=== PATIENT | female | born 1950 | race Caucasian/White ===

== ENCOUNTER → 2020-10-12 08:59 | Outpatient (BNVA) | payer MEDICARE, MEDICAID, SELFPAY | PROVIDERS: Visit Provider Internal Medicine Cardiovascular Disease | DX: I48.0 Paroxysmal atrial fibrillation (principal); I10 Essential (primary) hypertension; R06.02 Shortness of breath; Z79.01 Long term (current) use of anticoagulants; Z79.899 Other long term (current) drug therapy | CPT/HCPCS: 93005; 99212 ==

== ENCOUNTER 2020-10-27 09:32 | Outpatient (REF) | payer MEDICARE, MEDICAID, SELFPAY ==
[2020-10-27 11:15] LABS: Anion Gap 15 (12-20); Blood Urea Nitrogen 23 mg/dL (9-16); Calcium 9.8 mg/dL (8.4-10.2); Carbon Dioxide 26 mmol/L (22-29); Chloride 101 mmol/L (96-108); Estimated Glomerular Filt Rate 51; Glucose Random 116 mg/dL (60-115); Potassium 3.8 mmol/l (3.3-5.1); Sodium 138 mmol/L (135-145)
== END 2020-10-27 09:33 | disposition home or self-care (01) ==
LOC: HO.LAB 09:32
PROVIDERS: Visit Provider Internal Medicine Cardiovascular Disease
DX: I10 Essential (primary) hypertension (principal)
CPT/HCPCS: 80048; 99211

== ENCOUNTER → 2021-04-05 08:56 | Outpatient (BNVA) | payer MEDICARE, MEDICAID, SELFPAY | PROVIDERS: PCP Internal Medicine; Visit Provider Internal Medicine Cardiovascular Disease | DX: I48.0 Paroxysmal atrial fibrillation (principal); I10 Essential (primary) hypertension | CPT/HCPCS: 93005; 99212 ==

== ENCOUNTER 2021-05-16 08:20 | Outpatient (REF) | payer MEDICARE, MEDICAID, SELFPAY ==
--- NOTE | ~2021-05-16 | XR_ITS ---
EXAMINATION: KNEE X-RAY CLINICAL INFORMATION: Pain COMPARISON: None TECHNIQUE: Standing AP view of both knees and lateral and sunrise view of the left knee FINDINGS: Left: Bone alignment is normal.. No fracture or dislocation is seen. There is arthritis at the femoral tibial and patellofemoral joints with joint space narrowing and osteophyte formation, greatest at the medial femoral tibial joint. There is a moderate joint effusion. Standing AP view of the left knee demonstrates arthritis at the lateral femoral tibial joint. XR/XR knee standing BI IMPRESSION: Left knee: Arthritis and joint effusion.
--- NOTE | ~2021-05-16 | XR_ITS ---
EXAMINATION: KNEE X-RAY CLINICAL INFORMATION: Pain COMPARISON: None TECHNIQUE: Standing AP view of both knees and lateral and sunrise view of the left knee FINDINGS: Left: Bone alignment is normal.. No fracture or dislocation is seen. There is arthritis at the femoral tibial and patellofemoral joints with joint space narrowing and osteophyte formation, greatest at the medial femoral tibial joint. There is a moderate joint effusion. Standing AP view of the left knee demonstrates arthritis at the lateral femoral tibial joint. XR/XR knee LT 2V IMPRESSION: Left knee: Arthritis and joint effusion.
== END 2021-05-16 08:21 | disposition home or self-care (01) ==
LOC: HO.HOSX 08:20
PROVIDERS: Visit Provider Orthopaedic Surgery
DX: M17.12 Unilateral primary osteoarthritis, left knee (principal)
CPT/HCPCS: 73560; 73565; 99202

== ENCOUNTER 2021-06-21 16:42 | Inpatient (IN) | payer MEDICARE, MEDICAID, SELFPAY ==
--- NOTE | ~2021-06-21 | US_ITS ---
EXAMINATION: RIGHT LOWER EXTREMITY DEEP VENOUS ULTRASOUND CLINICAL INFORMATION: Increased swelling. History of DVT. COMPARISON: Right lower extremity DVT study June 21, 2021 TECHNIQUE: Duplex Doppler imaging with compression maneuvers were performed of the right lower extremity deep venous system. FINDINGS: The visualized common femoral, femoral and popliteal veins demonstrate normal compressibility and color flow without evidence of venous thrombosis. Visualized portions of the mid and distal posterior tibial vein demonstrate normal color fill-in suggesting patency. The proximal portion of the posterior tibial vein and the entirety of the peroneal vein were not clearly visualized. There is no evidence of a Rajan's cyst. US/US venous duplex LE RT IMPRESSION: No evidence of deep venous thrombosis involving the visualized veins of the right lower extremity.
--- NOTE | ~2021-06-21 | CT_ITS ---
EXAMINATION: CT ABDOMEN AND PELVIS WITHOUT CONTRAST CLINICAL INFORMATION: Breast cancer. Now presents with DVT while on Xarelto. COMPARISON: None TECHNIQUE: Multidetector volumetric imaging was performed from the superior aspect of the liver through the pubic symphysis. Sagittal and coronal reformatted images were obtained on the technologist's workstation. This CT examination was performed using dose optimization techniques as appropriate, variously including the following: *Automated exposure control *Adjustment of mA and/or kV according to patient size (this includes techniques or standardized protocols for targeted exams where dose is matched to indication/reason for exam; i.e. extremities or head) *Use of iterative reconstruction technique DLP: 546.5 mGy-cm FINDINGS: LUNG BASES: Lung bases appear unremarkable. No pleural or pericardial effusion is seen. There is a small amount of pericardial fluid present. LIVER, GALLBLADDER, AND BILIARY TREE: The liver is normal in size, shape, and attenuation. No focal hepatic lesion or biliary ductal dilatation is present. There appears to be either sludge or vicarious excretion of contrast related to recent CT scan. No evidence of acute cholecystitis. PANCREAS: Unremarkable. SPLEEN: Unremarkable. ADRENAL GLANDS: Unremarkable. KIDNEYS AND URETERS: The kidneys are normal in size, shape, and attenuation. No hydronephrosis, hydroureter, or calculi seen. No perinephric stranding. BLADDER: Unremarkable. Some contrast is noted still within the urinary bladder. GASTROINTESTINAL TRACT: No dilated loops of large or small bowel. No free air or free fluid. No evidence of acute diverticulitis, pericolonic inflammatory change, or acute appendicitis. ABDOMINAL WALL: No significant hernia is appreciated. There is some inflammatory streaking in the right inguinal region. LYMPH NODES: No lymphadenopathy appreciated. VASCULAR: No abdominal aortic aneurysm. There is mild calcified aortoiliac plaque present. PELVIC VISCERA: Unremarkable. OSSEOUS STRUCTURES: No suspicious destructive bony lesions identified. There is scoliosis of the lumbar spine convex left. Multilevel degenerative disc disease is present. There is bilateral degenerative change of the hips left greater than right. CT/CT abdomen pelvis wo con IMPRESSION: Inflammatory streaking seen in the right inguinal region. No suspicious lytic or sclerotic lesions within visualized bone. Multilevel degenerative disc disease is seen.
--- NOTE | ~2021-06-21 | US_ITS ---
EXAMINATION: US VENOUS ULTRASOUND WITH DOPPLER LOWER EXTREMITY, RIGHT CLINICAL INFORMATION: Right lower extremity edema swelling and pain COMPARISON: None TECHNIQUE: Ultrasound of the deep veins is performed from the hip to the calf with compression sonography and color and pulse Doppler assessment. Spectral analysis with color-flow imaging is performed. FINDINGS: Noncompressible thrombus is seen in the posterior tibial vein. The remainder of the leg demonstrates normal venous compression and respiratory variation and augmented flow. The visualized common femoral vein, superficial femoral vein, profunda femoral vein, popliteal vein, and peroneal veins shows no evidence of deep venous thrombosis. There is no significant popliteal fossa cyst. US/US venous duplex LE RT IMPRESSION: DVT involving posterior tibial vein. No evidence of DVT from the knee upwards. .
--- NOTE | ~2021-06-21 | CT_ITS ---
EXAMINATION: CT ANGIOGRAM OF THE CHEST WITH AND WITHOUT CONTRAST (CT PULMONARY ANGIOGRAM FOR PE) CLINICAL INFORMATION: Reason for Exam Tachycardia, that breath, positive DVT COMPARISON: None TECHNIQUE: Prior to contrast administration, noncontrast localization images were obtained. Subsequently, multidetector volumetric imaging was performed from the thoracic inlet to below the diaphragms following the administration of 35c mL Omnipaque 350 intravenous contrast. No contrast reaction reported Sagittal, coronal, and MIP oblique sagittal reformatted images were obtained on the CT workstation, uploaded to PACS, and reviewed. This CT examination was performed using dose optimization techniques as appropriate, variously including the following: *Automated exposure control *Adjustment of mA and/or kV according to patient size (this includes techniques or standardized protocols for targeted exams where dose is matched to indication/reason for exam; i.e. extremities or head) *Use of iterative reconstruction technique Total exam dose-length product 336 mGy-cm FINDINGS: QUALITY OF STUDY/CONTRAST BOLUS: Satisfactory. PULMONARY ARTERIES: No central or segmental pulmonary emboli. THORACIC AORTA: No aneurysm or dissection. Aorta is atherosclerotic. LUNG: No focal consolidation, nodules or masses. PLEURA: No pleural effusion or pneumothorax. MEDIASTINUM: Normal heart size. No pericardial effusion. No hilar or mediastinal lymphadenopathy. No evidence of septal bowing or right heart strain. No reflux of contrast into the hepatic veins to suggest elevated right heart pressures. CHEST WALL/AXILLA: No axillary or internal mammary lymphadenopathy.c postsurgical changes, left breast. OSSEOUS STRUCTURES: No acute or suspicious osseous abnormality. UPPER ABDOMEN: Small sliding-type hiatal hernia. CT/CT angio chest PE protocol IMPRESSION: * No pulmonary embolism. * No aortic aneurysm or dissection. * No pneumonitis, parenchymal consolidation or pneumothorax. VTE: negative
[2021-06-21 17:55] VITALS: BP 147/66; PULSE 122; RESP 18; TEMP 37.7; O2SAT 99; BMI 33.1
--- NOTE | 2021-06-21 21:09 | ED.EXTPRO ---
HPI - Extremity Problem General Chief complaint: Extremity Problem Stated complaint: LEG SWOLLEN Time Seen by Provider: 06/21/21 18:36 Source: patient and family (Daughter) Mode of arrival: ambulatory History of Present Illness HPI Narrative: 70-year-old female with history of atrial fibrillation currently on Xarelto presents with right lower extremity calf swelling and redness that is been progressively worsening since 2 weeks, 2 days ago daughter states that the patient was febrile to 39? C and has had worsening shortness of breath without GI symptoms or symptoms. Patient currently denies any chest pain or palpitations. Related Data Home Medications Medication Instructions Recorded Confirmed celecoxib 200 mg capsule 200 mg PO DAILY 10/12/20 04/05/21 cholecalciferol (vitamin D3) 50 50 mcg PO DAILY 10/12/20 04/05/21 mcg (2,000 unit) tablet glucosamine sulfate 500 mg tablet 500 mg PO DAILY 10/12/20 04/05/21 omega-3 fatty acids 1,000 mg 1,000 mg PO DAILY 10/12/20 04/05/21 capsule potassium chloride 20 mEq 20 meq PO tab 04/05/21 04/05/21 tablet,extended release(part/cryst) risperidone 0.5 mg tablet 0.5 mg PO BEDTIME tab 04/05/21 04/05/21 Previous Rx's Medication Instructions Recorded amlodipine 5 mg tablet 5 mg PO DAILY #30 tab 01/11/21 spironolactone 50 mg tablet 50 mg PO DAILY #90 tab 01/11/21 chlorthalidone 50 mg tablet 50 mg PO QAM #90 tab 03/25/21 amiodarone 100 mg tablet 100 mg PO DAILY #90 tab 04/14/21 rivaroxaban 20 mg tablet 20 mg PO BEDTIME #90 tab 06/16/21 Allergies Allergy/AdvReac Type Severity Reaction Status Date / Time No Known Allergies Allergy Verified 06/21/21 17:55 [No Known Allergies*] Review of Systems Review of Systems: Stated in HPI 10 point review of systems is otherwise negative. [facility] Past Medical History Source: nursing notes reviewed Medical History HTN (hypertension) Paroxysmal atrial fibrillation Varicose veins of bilateral lower extremities with other complications Surgical History Hx of breast biopsy Family History Family History Father No problems noted. Mother CVD (cardiovascular disease) HTN (hypertension) Social History Social History Patient Tobacco Use Status: Never used Tobacco Use of substances other than those prescribed or required for medical reasons: No Advance Directives: No Advance Directives Information Provided: Yes Physical Exam Vital Signs: Vital Signs: Last Vital Signs Temp 99.9 F 06/21/21 17:55 Pulse 122 H 06/21/21 17:55 Resp 18 06/21/21 17:55 BP 147/66 H 06/21/21 17:55 Pulse Ox 99 06/21/21 17:55 Body Mass Index 33.1 VITAL SIGNS: Reviewed. GENERAL: Well developed, well nourished, in no acute distress. HEAD: Normocephalic/atraumatic, EYES: PERRLA, EOMI EARS: Ext canals without abnormality OROPHARYNX: no oral lesions noted, posterior pharynx clear LUNGS: Normal breath sounds. No adventitious sounds or accessory muscle use. SpO2<99> CARDIOVASCULAR: Regular rate and rhythm without noted murmurs, no JVD but right lower edema as described below. ABDOMEN: Obese, Soft, non-tender, non-distended with bowel sounds. RIGHT LOWER EXTREMITY: Significant erythema, swelling, with blistering noted to the anterior aspect of the lower leg but palpable pulses, tactile warmth and good capillary refill SKIN: Inspection of the skin reveals no rashes, but see above description for right lower extremity NEUROLOGIC: Alert and oriented x 4. Strength and sensation to light touch were grossly intact x 4. Course Course Course Narrative: 2128: 70-year-old female with history and clinical presentation consistent with DVT in suspected PE while on Xarelto. 2253: Review of initial lab work showing leukocytosis and patient will be empirically treated with a dose of antibiotics as although there is high suspicion for PE in addition to DVT the right lower extremity does look consistent with a cellulitis. There was significant delays due to challenging venous access. Review of entire course of investigations consistent with DVT as well as significant right lower extremity cellulitis. Patient otherwise does not meet criteria for sepsis fluids and discussion of the case with the inpatient hospitalist team for admission. Patient was started on heparin drip given the fact that she had developed the DVT while on Xarelto. MDM - Extremity (Nontraumatic) Lab Data Result diagrams: 06/21/21 22:54 06/21/21 22:54 Labs: Lab Results 06/21/21 06/21/21 06/21/21 Range/Units 22:54 22:54 22:54 WBC 17.0 H (4.8-10.8) X10*3/uL RBC 4.29 (4.20-5.50) X10*6/uL Hgb 13.4 (12.0-16.0) g/dl Hct 39.3 (37-47) % MCV 91.6 (80-98) fL MCH 31.2 (27.0-33.0) pg MCHC 34.1 (31.0-35.0) g/dl RDW 14.0 (11.0-16.0) % Plt Count 229 (160-400) X10*3/uL MPV 12.0 (9.4-12.3) fL Immature Gran % (Auto) 0.6 H (0.0-0.4) % Neut % (Auto) 85.2 H (45-73) % Lymph % (Auto) 9.0 L (20-40) % [place] % (Auto) 5.0 (2-11) % Eos % (Auto) 0.0 (0-4) % Baso % (Auto) 0.2 (0-2) % Lymph # (Auto) 1.5 (1.2-4.9) X10*3/uL [place] # (Auto) 0.9 (0.1-1.2) X10*3/uL Eos # (Auto) 0.0 (0.0-0.4) X10*3/uL Baso # (Auto) 0.0 (0.0-0.2) X10*3/uL Abs Immat Gran (auto) 0.10 H (0.00-0.03) X10*3/uL Absolute Neuts (auto) 14.5 H (2.0-8.3) X10*3/uL Absolute Nucleated RBC 0.000 (0.0-0.012) X10*3/uL Nucleated RBC % (auto) 0.0 (0.0-0.2) /100WBC ESR 38 H (0-20) MM/HR PT (9.9-13.0) SEC INR (0.9-1.1) APTT (24.1-38.0) SEC Sodium 137 (135-145) mmol/L Potassium 3.0 L (3.3-5.1) mmol/L Chloride 97 (96-108) mmol/L Carbon Dioxide 24 (22-29) mmol/L Anion Gap 19 (12-20) BUN 18 H (9-16) mg/dL Creatinine 1.02 (0.5-1.4) mg/dL Estim Creat Clear Calc 51.4 Estimated GFR 53 Random Glucose 138 H (60-115) mg/dL Lactic Acid (0.5-2.0) mmol/L Calcium 9.4 (8.4-10.2) mg/dL Magnesium 1.7 (1.6-2.6) mg/dL Total Bilirubin 0.7 (0.0-1.0) mg/dL Direct Bilirubin 0.4 (0.0-0.5) mg/dL AST 21 (5-31) U/L ALT 23 (0-31) U/L Alkaline Phosphatase 84 (39-117) U/L Total Creatine Kinase 49 (26-140) U/L Troponin I High Sens (<3.5-17.0) ng/L C-Reactive Protein 33.21 H (< or = 0.50) mg/dL B-Natriuretic Peptide (<100) pg/mL Total Protein 6.7 (6.5-8.0) g/dL Albumin 4.0 (3.5-5.0) g/dL COVID-19 ([facility]) (Negative) COVID-19 Clin Com 06/21/21 06/21/21 06/21/21 Range/Units 22:54 22:54 22:54 WBC (4.8-10.8) X10*3/uL RBC (4.20-5.50) X10*6/uL Hgb (12.0-16.0) g/dl Hct (37-47) % MCV (80-98) fL MCH (27.0-33.0) pg MCHC (31.0-35.0) g/dl RDW (11.0-16.0) % Plt Count (160-400) X10*3/uL MPV (9.4-12.3) fL Immature Gran % (Auto) (0.0-0.4) % Neut % (Auto) (45-73) % Lymph % (Auto) (20-40) % [place] % (Auto) (2-11) % Eos % (Auto) (0-4) % Baso % (Auto) (0-2) % Lymph # (Auto) (1.2-4.9) X10*3/uL [place] # (Auto) (0.1-1.2) X10*3/uL Eos # (Auto) (0.0-0.4) X10*3/uL Baso # (Auto) (0.0-0.2) X10*3/uL Abs Immat Gran (auto) (0.00-0.03) X10*3/uL Absolute Neuts (auto) (2.0-8.3) X10*3/uL Absolute Nucleated RBC (0.0-0.012) X10*3/uL Nucleated RBC % (auto) (0.0-0.2) /100WBC ESR (0-20) MM/HR PT 28.0 H (9.9-13.0) SEC INR 2.4 H (0.9-1.1) APTT 35.8 (24.1-38.0) SEC Sodium (135-145) mmol/L Potassium (3.3-5.1) mmol/L Chloride (96-108) mmol/L Carbon Dioxide (22-29) mmol/L Anion Gap (12-20) BUN (9-16) mg/dL Creatinine (0.5-1.4) mg/dL Estim Creat Clear Calc Estimated GFR Random Glucose (60-115) mg/dL Lactic Acid (0.5-2.0) mmol/L Calcium (8.4-10.2) mg/dL Magnesium (1.6-2.6) mg/dL Total Bilirubin (0.0-1.0) mg/dL Direct Bilirubin (0.0-0.5) mg/dL AST (5-31) U/L ALT (0-31) U/L Alkaline Phosphatase (39-117) U/L Total Creatine Kinase (26-140) U/L Troponin I High Sens 8.2 (<3.5-17.0) ng/L C-Reactive Protein (< or = 0.50) mg/dL B-Natriuretic Peptide 181 H (<100) pg/mL Total Protein (6.5-8.0) g/dL Albumin (3.5-5.0) g/dL COVID-19 ([facility]) Negative (Negative) COVID-19 Clin Com See Note 06/21/21 Range/Units 23:09 WBC (4.8-10.8) X10*3/uL RBC (4.20-5.50) X10*6/uL Hgb (12.0-16.0) g/dl Hct (37-47) % MCV (80-98) fL MCH (27.0-33.0) pg MCHC (31.0-35.0) g/dl RDW (11.0-16.0) % Plt Count (160-400) X10*3/uL MPV (9.4-12.3) fL Immature Gran % (Auto) (0.0-0.4) % Neut % (Auto) (45-73) % Lymph % (Auto) (20-40) % [place] % (Auto) (2-11) % Eos % (Auto) (0-4) % Baso % (Auto) (0-2) % Lymph # (Auto) (1.2-4.9) X10*3/uL [place] # (Auto) (0.1-1.2) X10*3/uL Eos # (Auto) (0.0-0.4) X10*3/uL Baso # (Auto) (0.0-0.2) X10*3/uL Abs Immat Gran (auto) (0.00-0.03) X10*3/uL Absolute Neuts (auto) (2.0-8.3) X10*3/uL Absolute Nucleated RBC (0.0-0.012) X10*3/uL Nucleated RBC % (auto) (0.0-0.2) /100WBC ESR (0-20) MM/HR PT (9.9-13.0) SEC INR (0.9-1.1) APTT (24.1-38.0) SEC Sodium (135-145) mmol/L Potassium (3.3-5.1) mmol/L Chloride (96-108) mmol/L Carbon Dioxide (22-29) mmol/L Anion Gap (12-20) BUN (9-16) mg/dL Creatinine (0.5-1.4) mg/dL Estim Creat Clear Calc Estimated GFR Random Glucose (60-115) mg/dL Lactic Acid 1.9 (0.5-2.0) mmol/L Calcium (8.4-10.2) mg/dL Magnesium (1.6-2.6) mg/dL Total Bilirubin (0.0-1.0) mg/dL Direct Bilirubin (0.0-0.5) mg/dL AST (5-31) U/L ALT (0-31) U/L Alkaline Phosphatase (39-117) U/L Total Creatine Kinase (26-140) U/L Troponin I High Sens (<3.5-17.0) ng/L C-Reactive Protein (< or = 0.50) mg/dL B-Natriuretic Peptide (<100) pg/mL Total Protein (6.5-8.0) g/dL Albumin (3.5-5.0) g/dL COVID-19 ([facility]) (Negative) COVID-19 Clin Com ECG Data Attestation EKG: I personally reviewed and interpreted this ECG as follows: Prior ECG tracings: available for review (01/21/2020 sinus bradycardia and now in atrial fibrillation) Interpretation: Atrial fibrillation with RVR, HR-105, no STEMI, QRS within normal limits and noted QT prolongation. Discharge Plan Discharge Clinical Impression: DVT (deep venous thrombosis), Cellulitis, Sepsis Patient Disposition: Admitted As Inpatient
--- NOTE | 2021-06-21 21:33 | ECG_ITS ---
Test Reason : LEG SWELLING Blood Pressure : / mmHG Vent. Rate : 105 BPM Atrial Rate : 117 BPM P-R Int : 000 ms QRS Dur : 088 ms QT Int : 418 ms P-R-T Axes : 000 -25 047 degrees QTc Int : 552 ms Atrial fibrillation with rapid ventricular response Minimal voltage criteria for LVH, may be normal variant Cannot rule out Anterior infarct (cited on or before 21-JAN-2020) Abnormal ECG When compared with ECG of 21-JAN-2020 13:05, Atrial fibrillation has replaced Sinus rhythm Vent. rate has increased BY 58 BPM Referred By: Francoise Moralez Electronically Signed By:ESAU LLOYD
--- NOTE | 2021-06-21 22:40 | PC.NURSE ---
PT REPORTS RLE SWELLING, HEAT, REDNESS AND PAIN BEGINNING YESTERDAY MORNING. PAINFUL UPON MOVEMENT AND AMBULATION. PT A&Ox4, SKIN PWD RESPIRATIONS EVEN UNLABORED. GOOD HISTORIAN. IV ACCESS OBTAINED 20G IN RIGHT AC. AWAITING LAB DRAW AND CTA OF CHEST. DAUGHTER AT BEDSIDE. PT AND DAUGHTER AWARE OF PLAN OF CARE.
[2021-06-21 23:07] LABS: MANUAL DIFF FLAG NO
[2021-06-21 23:10] LABS: Basophils Percent Auto 0.2 % (0-2); Hematocrit 39.3 % (37-47); Hemoglobin 13.4 g/dl (12.0-16.0); Imm Gran Pct Auto 0.6 % (0.0-0.4); Lymphocytes Absolute Auto 1.5 X10*3/uL (1.2-4.9); Mean Corpuscular HGB Conc 34.1 g/dl (31.0-35.0); Mean Corpuscular Hemoglobin 31.2 pg (27.0-33.0); Mean Corpuscular Volume 91.6 fL (80-98); Monocytes Absolute Auto 0.9 X10*3/uL (0.1-1.2); Neutrophils Absolute Auto 14.5 X10*3/uL (2.0-8.3); Neutrophils Percent Auto 85.2 % (45-73); Platelet Count 229 X10*3/uL (160-400); Red Blood Count 4.29 X10*6/uL (4.20-5.50)
[2021-06-21 23:17] LABS: INTERNATIONAL NORM RATIO 2.4 (0.9-1.1)
[2021-06-21 23:20] LABS: Partial Thromboplastin Time 35.8 SEC (24.1-38.0)
[2021-06-21 23:32] LABS: COVID-19 Test Negative (Negative); IDNOW Serial# 08D9AD1C
[2021-06-21 23:34] LABS: Alanine Aminotransferase 23 U/L (0-31); Alkaline Phosphatase 84 U/L (39-117); Anion Gap 19 (12-20); Aspartate Amino Transferase 21 U/L (5-31); Bilirubin Direct 0.4 mg/dL (0.0-0.5); Bilirubin Total 0.7 mg/dL (0.0-1.0); Blood Urea Nitrogen 18 mg/dL (9-16); Calcium 9.4 mg/dL (8.4-10.2); Carbon Dioxide 24 mmol/L (22-29); Chloride 97 mmol/L (96-108); Creatinine Clr Calc Pharmacy 51.4; Estimated Glomerular Filt Rate 53; Glucose Random 138 mg/dL (60-115); Magnesium 1.7 mg/dL (1.6-2.6); Sodium 137 mmol/L (135-145); Total Protein 6.7 g/dL (6.5-8.0)
[2021-06-21 23:37] LABS: Lactic Acid 1.9 mmol/L (0.5-2.0)
[2021-06-21 23:37] LABS: B Type Natriuretic Peptide 181 pg/mL (<100)
[2021-06-21 23:45] LABS: C Reactive Protein 33.21 mg/dL (< or = 0.50)
[2021-06-21 23:56] LABS: Erythrocyte Sedimentation Rate 38 MM/HR (0-20)
[2021-06-22] VITALS (9 sets, daily range): BP systolic 111–142; BP diastolic 57–89; PULSE 97–114; RESP 14–20; TEMP 36.4–37.2; O2SAT 91–99
[2021-06-22] MEDS: iohexoL 350 MG/ML 100 ML INFUS..BTL 65 ML IV (00:13)
[2021-06-22 00:27] LABS: Troponin-I High Sensitivity 8.2 ng/L (<3.5-17.0)
[2021-06-22] MEDS: Piperacillin Sodium/Tazobactam 3.375 GM in 0.9 % Sodium Chloride 50 ML IV (01:04)
[2021-06-22 01:40] LABS: Glucose Urine UA NEG (NEG); Leukocyte Esterase Urine NEG (NEG); Nitrite Urine NEG (NEG); Urine Blood 2+ (NEG); Urine Ketones 40 MG/DL (NEG); Urine Protein TRACE MG/DL (NEG-TRACE)
[2021-06-22 01:41] LABS: Appearance Urine CLEAR; Color Urine YELLOW
[2021-06-22] MEDS: Heparin Sodium,Porcine/1/2NS 25,000 UNIT/250 ML IV.SOLN 15.27 UNIT IVCONT (01:45)
[2021-06-22] MEDS: Potassium Chloride ER 20 MEQ TAB.ER.PRT 60 MEQ PO (01:54)
[2021-06-22 02:01] LABS: Bacteria Urine 1+ /LPF; Mucus Urine 1+ /LPF; Squamous Epithelial Cell Urine 1+ /LPF
--- NOTE | 2021-06-22 02:37 | PC.NURSE ---
PT AMB TO BATHROOM WITH STEADY GAIT AND 1 ASSIST. SKIN PWD RESPIRATIONS EVEN UNLABORED. HEPARIN DRIP INFUSING WITHOUT DIFFICULTY. AWAITING BED ASSIGNMENT FOR ADMISSION. AWARE OF PLAN OF CARE.
[2021-06-22] MEDS: vancomycin HCL 1,250 MG in 0.9 % Sodium Chloride 250 ML 166.67 MG IV ×2 (03:05→15:42)
[2021-06-22 05:52] LABS: PTT Heparin Drip 59.9 SEC (53-77.9)
[2021-06-22 06:14] LABS: INTERNATIONAL NORM RATIO 2.2 (0.9-1.1); Prothrombin Time 25.6 SEC (9.9-13.0)
[2021-06-22 06:18] LABS: Hematocrit 37.8 % (37-47); Mean Corpuscular HGB Conc 34.4 g/dl (31.0-35.0); Mean Corpuscular Hemoglobin 31.4 pg (27.0-33.0); Mean Corpuscular Volume 91.3 fL (80-98); Mean Platelet Volume 11.9 fL (9.4-12.3); Platelet Count 225 X10*3/uL (160-400); Red Blood Count 4.14 X10*6/uL (4.20-5.50); White Blood Count 16.1 X10*3/uL (4.8-10.8)
--- NOTE | 2021-06-22 06:31 | PM.IMHP ---
History of Present Illness Date of Service: 06/22/21 Chief Complaint: Leg swelling 70-year-old female with past medical history of HTN, breast cancer 2 years ago status post radiation according to the daughter, paroxysmal AFib on Xarelto, and varicose veins who presents to the hospital with complaints of right lower extremity swelling, redness, and pain for the past 1 day. Patient speaks [place] and therefore history is obtained with the help of her daughter at bedside According to the daughter is interpreting for the mother the pain is 9/10, burning, localized to the right lower part of the lower extremity, she had a fever at home of 39? C, she took Tylenol with improvement of her temperature, denies any shortness of breath, no chest pain, no cough, no abdominal pain nausea or vomiting, no diarrhea constipation, no urinary symptoms. No numbness tingling or weakness. Review of systems otherwise negative except as mentioned above On arrival to the ED patient hemodynamically stable with vitals significant for temperature of 99.9?, heart rate of 122, respiratory rate of 18, blood pressure of 147/66, satting 99% on room air Labs are significant for WBC count of 17.0, AST of 38, PT of 28, INR of 2.4, C-reactive protein of 33.2, BNP of 181 a urine that is positive for blood but negative for any evidence of infection, COVID-19 negative showed DVT involving the posterior tibial vein, no evidence of DVT from the knee all ports, CT angiogram of the chest negative for PE Patient will be admitted for further management Past medical history as below and confirm with patient and her daughter Review of Systems Review of Systems: Negative except as mentioned above [facility] Medical History HTN (hypertension) Paroxysmal atrial fibrillation Varicose veins of bilateral lower extremities with other complications Family History Father No problems noted. Mother CVD (cardiovascular disease) HTN (hypertension) Surgical History Hx of breast biopsy Social History Patient Tobacco Use Status: Never used Tobacco Use of substances other than those prescribed or required for medical reasons: No Advance Directives: No Advance Directives Information Provided: Yes Meds Allergies Allergy/AdvReac Type Severity Reaction Status Date / Time No Known Allergies Allergy Verified 06/21/21 17:55 [No Known Allergies*] Active Medications: Current Medications Generic Name Dose Route Start Last Admin Trade Name Jon PRN Reason Stop Dose Admin Acetaminophen 650 mg 06/22/21 01:26 Acetaminophen 325 Mg Tablet PO Q6H PRN Pain, Mild (Pain Scale 1-3) Docusate Sodium 100 mg 06/22/21 01:26 Docusate Sodium 100 Mg Capsule PO DAILY PRN Constipation Heparin Sodium (Porcine) 3,400 unit 06/21/21 23:33 Heparin Sodium,Porcine 5,000 Unit/Ml Vial 40 unit/kg (3400 unit) IVPUSH PROTOCOL BOLUS PRN 40 unit/kg - Heparin Protocol Protocol Heparin Sodium (Porcine) 6,800 unit 06/21/21 23:33 Heparin Sodium,Porcine 5,000 Unit/Ml Vial 80 unit/kg (6800 unit) IVPUSH PROTOCOL BOLUS PRN 80 unit/kg - Heparin Protocol Protocol Heparin Sodium/Sodium Chloride 25,000 unit in 250 mls @ 15.268 mls/hr 06/21/21 23:45 06/22/21 01:45 IVCONT 18 units/kg/hr .[id number] QING 15.27 mls/hr Administration Protocol 18 UNITS/KG/HR Vancomycin HCl 1,250 mg/ 250 mls @ 166.667 mls/hr 06/22/21 01:30 06/22/21 04:45 Sodium Chloride IV Infused Q12H [facility] Infusion Ondansetron HCl 4 mg 06/22/21 01:26 Ondansetron Hcl 4 Mg/2 Ml Vial IVPUSH Q8H PRN Nausea and Vomiting Pharmacy Consult 1 each 06/22/21 01:30 Consult Rx Vancomycin Dosing MISCELLANE DAILY PRN Consult order Sodium Chloride 3 ml 06/22/21 08:00 0.9 % Sodium Chloride Flush 3 Ml Syringe IVFLUSH [facility] Home Medications Medication Instructions Recorded Confirmed Last Taken Type celecoxib 200 mg capsule 200 mg PO DAILY 10/12/20 06/22/21 06/21/21 History cholecalciferol (vitamin D3) 50 50 mcg PO DAILY 10/12/20 06/22/21 06/21/21 History mcg (2,000 unit) tablet glucosamine sulfate 500 mg tablet 500 mg PO DAILY 10/12/20 06/22/21 06/21/21 History (Glucosamine) risperidone 0.5 mg tablet 0.5 mg PO BEDTIME tab 04/05/21 06/22/21 06/21/21 History rivaroxaban 20 mg tablet (Xarelto) 20 mg PO DAILY@1700 06/22/21 06/22/21 06/20/21 History Physical Exam Vital Signs and Narrative: Vital Signs: Last Vital Signs Temp 97.9 F 06/22/21 06:26 Pulse 102 H 06/22/21 06:26 Resp 18 06/22/21 06:26 BP 136/89 06/22/21 06:26 Pulse Ox 97 06/22/21 06:26 Body Mass Index 33.1 Const: General: cooperative and no acute distress Orientation/consciousness: patient oriented x3 Eyes: General: appearance normal, both eyes and all related structures Resp: Effort & Inspection: normal respiratory effort and able to speak in complete sentences Auscultation: clear to auscultation bilaterally Cardio: Rate: regular rate Rhythm: regular rhythm GI: Palpation (GI): Soft to palpation Auscultation: normal bowel sounds Skin: Other: Right lower extremity erythema, swelling, tenderness, warmth, wheezing of clear liquid from skin Neuro: General: patient oriented x3 Cognition (Neuro): normal cognition Extrem: Other: See right lower extremity in skin Results Labs CBC and Chem 7: 06/22/21 03:20 06/21/21 22:54 Labs: Laboratory Results - last 24 hr 06/21/21 06/21/21 06/21/21 03:20 22:54 22:54 MCV 91.6 MCH 31.2 MCHC 34.1 RDW 14.0 Plt Count 229 MPV 12.0 Immature Gran % (Auto) 0.6 H Neut % (Auto) 85.2 H Lymph % (Auto) 9.0 L [place] % (Auto) 5.0 Eos % (Auto) 0.0 Baso % (Auto) 0.2 Lymph # (Auto) 1.5 [place] # (Auto) 0.9 Eos # (Auto) 0.0 Baso # (Auto) 0.0 Abs Immat Gran (auto) 0.10 H Absolute Neuts (auto) 14.5 H Absolute Nucleated RBC 0.000 Nucleated RBC % (auto) 0.0 ESR 38 H PT 25.6 H INR 2.2 H APTT PTT (Heparin Protocol) 59.9 Anion Gap Estim Creat Clear Calc Estimated GFR Random Glucose Lactic Acid Calcium Magnesium Total Bilirubin Direct Bilirubin AST ALT Alkaline Phosphatase Total Creatine Kinase Troponin I High Sens C-Reactive Protein B-Natriuretic Peptide Total Protein Albumin Urine Color Urine Appearance Urine pH Ur Specific [place] Urine Protein Urine Glucose (UA) Urine Ketones Urine Blood Urine Nitrite Ur Leukocyte Esterase Urine RBC Urine WBC Ur Squamous Epith Cells Urine Bacteria Hyaline Casts Granular Casts Urine Mucus COVID-19 ([facility]) COVID-19 Clin Com 06/21/21 06/21/21 06/21/21 22:54 22:54 22:54 MCV MCH MCHC RDW Plt Count MPV Immature Gran % (Auto) Neut % (Auto) Lymph % (Auto) [place] % (Auto) Eos % (Auto) Baso % (Auto) Lymph # (Auto) [place] # (Auto) Eos # (Auto) Baso # (Auto) Abs Immat Gran (auto) Absolute Neuts (auto) Absolute Nucleated RBC Nucleated RBC % (auto) ESR PT 28.0 H INR 2.4 H APTT 35.8 PTT (Heparin Protocol) Anion Gap 19 Estim Creat Clear Calc 51.4 Estimated GFR 53 Random Glucose 138 H Lactic Acid Calcium 9.4 Magnesium 1.7 Total Bilirubin 0.7 Direct Bilirubin 0.4 AST 21 ALT 23 Alkaline Phosphatase 84 Total Creatine Kinase 49 Troponin I High Sens 8.2 C-Reactive Protein 33.21 H B-Natriuretic Peptide 181 H Total Protein 6.7 Albumin 4.0 Urine Color Urine Appearance Urine pH Ur Specific [place] Urine Protein Urine Glucose (UA) Urine Ketones Urine Blood Urine Nitrite Ur Leukocyte Esterase Urine RBC Urine WBC Ur Squamous Epith Cells Urine Bacteria Hyaline Casts Granular Casts Urine Mucus COVID-19 ([facility]) COVID-19 [email or web address] Com 06/21/21 06/21/21 06/22/21 22:54 23:09 01:28 MCV MCH MCHC RDW Plt Count MPV Immature Gran % (Auto) Neut % (Auto) Lymph % (Auto) [place] % (Auto) Eos % (Auto) Baso % (Auto) Lymph # (Auto) [place] # (Auto) Eos # (Auto) Baso # (Auto) Abs Immat Gran (auto) Absolute Neuts (auto) Absolute Nucleated RBC Nucleated RBC % (auto) ESR PT INR APTT PTT (Heparin Protocol) Anion Gap Estim Creat Clear Calc Estimated GFR Random Glucose Lactic Acid 1.9 Calcium Magnesium Total Bilirubin Direct Bilirubin AST ALT Alkaline Phosphatase Total Creatine Kinase Troponin I High Sens C-Reactive Protein B-Natriuretic Peptide Total Protein Albumin Urine Color YELLOW Urine Appearance CLEAR Urine pH 6.0 Ur Specific [place] 1.020 Urine Protein TRACE Urine Glucose (UA) NEG Urine Ketones 40 Urine Blood 2+ H Urine Nitrite NEG Ur Leukocyte Esterase NEG Urine RBC 1-4 Urine WBC 1-4 Ur Squamous Epith Cells 1+ Urine Bacteria 1+ Hyaline Casts 1-4 Granular Casts 1-4 Urine Mucus 1+ COVID-19 ([facility]) Negative COVID-19 Clin Com See Note 06/22/21 03:20 MCV 91.3 MCH 31.4 MCHC 34.4 RDW 14.0 Plt Count 225 MPV 11.9 Immature Gran % (Auto) Neut % (Auto) Lymph % (Auto) [place] % (Auto) Eos % (Auto) Baso % (Auto) Lymph # (Auto) [place] # (Auto) Eos # (Auto) Baso # (Auto) Abs Immat Gran (auto) Absolute Neuts (auto) Absolute Nucleated RBC 0.000 Nucleated RBC % (auto) 0.0 ESR PT INR APTT PTT (Heparin Protocol) Anion Gap Estim Creat Clear Calc Estimated GFR Random Glucose Lactic Acid Calcium Magnesium Total Bilirubin Direct Bilirubin AST ALT Alkaline Phosphatase Total Creatine Kinase Troponin I High Sens C-Reactive Protein B-Natriuretic Peptide Total Protein Albumin Urine Color Urine Appearance Urine pH Ur Specific [place] Urine Protein Urine Glucose (UA) Urine Ketones Urine Blood Urine Nitrite Ur Leukocyte Esterase Urine RBC Urine WBC Ur Squamous Epith Cells Urine Bacteria Hyaline Casts Granular Casts Urine Mucus COVID-19 ([facility]) COVID-19 Clin Com ECG Interpretation: EKG reviewed and shows AFib with RVR with a rate of 105, prolonged QT interval 552, Imaging Radiologist's Impressions: Impressions Venous Duplex 06/21/21 18:36 IMPRESSION: DVT involving posterior tibial vein. No evidence of DVT from the knee upwards. . Chest CTA 06/21/21 21:29 IMPRESSION: * No pulmonary embolism. * No aortic aneurysm or dissection. * No pneumonitis, parenchymal consolidation or pneumothorax. VTE: negative Assessment and Plan (1) DVT (deep venous thrombosis): Status: Acute (2) Cellulitis: Status: Acute (3) Sepsis: Status: Acute (4) Prolonged QT interval: Status: Acute (5) Hypokalemia: Status: Acute 70-year-old female with past medical history of hypertension, AFib on Xarelto who presents to hospital with complaints of right lower extremity swelling redness and pain found to have cellulitis as well as DVT # sepsis - secondary to cellulitis, chest x-ray negative, UA negative - patient has leukocytosis, tachycardia - will start on IV fluids vancomycin given the wheezing in her skin - follow cultures # cellulitis - of right lower extremity - with systemic signs of infection - will start on IV antibiotics - follow cultures # DVT - patient on Xarelto for AFib and despite this developed DVT in her lower extremity - negative for PE - has history of breast cancer 2 years ago status post radiation according to her daughter - will consult Hematology-Oncology - started on heparin GGT in the ED # hypokalemia - repleted - will check magnesium and repeat BMP # prolonged QT - check magnesium - replete potassium - avoid QT prolonging medications # AFib - continue amiodarone - hold Xarelto - heparin GGT # hypertension - stable - continue amlodipine DVT prophylaxis: Heparin GGT Quality Stroke Does the patient have a stroke diagnosis?: No VTE Prior VTE?: No VTE Risk Level:: Medical - moderate - high VTE Device Contraindication: Treatment Not Indicated VTE Drug Contraindication: N/A - Med Ordered
--- NOTE | 2021-06-22 06:50 | PC.NURSE ---
PTT DRAW DUE AT 0745A TO BE PASSED ON TO [facility].
--- NOTE | 2021-06-22 07:53 | PC.NURSE ---
pt a/o x 3 no sob/belia noted skin pink warm dry speaks in full sentences. pt only drank her coffee for breakfast. pt is aware of plan of care for admission to hosp. pt changed into hosp garment. r leg is red/swollen and is elevated onto a pillow.ptt to be drawn by pct.
--- NOTE | 2021-06-22 07:55 | PC.NURSE ---
[facility]3 called, phone rang no response at this time, will try again..
[2021-06-22] MEDS: 0.9 % Sodium Chloride Flush 3 ML SYRINGE IVFLUSH ×2 (07:57→21:00)
--- NOTE | 2021-06-22 08:25 | PC.NURSE ---
nurse to nurse given to february (rn), pt aware of plan of care for admission to hosp
[2021-06-22 08:27] LABS: PTT Heparin Drip 69.7 SEC (53-77.9)
[2021-06-22] MEDS: Spironolactone 25 MG TABLET 50 MG PO (09:46)
[2021-06-22] MEDS: hydroCHLOROthiazide 50 MG TABLET PO (09:47)
[2021-06-22] MEDS: Cholecalciferol (Vitamin D3) 25 MCG TABLET 50 MCG PO (09:49)
[2021-06-22] MEDS: Amiodarone HCL 200 MG TABLET 100 MG PO (09:49)
[2021-06-22] MEDS: amLODIPine Besylate 5 MG TABLET PO (09:49)
--- NOTE | 2021-06-22 09:51 | P.PNIM_ITS ---
Subjective Subjective Date of Service: 06/22/21 Interval History: seen and examined this AM daughter bedside who helps translate pt reports leg pain, about the same d/w daughter re: Cherelle --- she reports that there were no doses missed Review of Systems General - no fevers or chills Cardiovascular - no chest pain Respiratory - no shortness of breath or cough Abdominal- no abdominal pain, nausea, vomiting, diarrhea Ext - pain, redness swelling Physical Exam Vital Signs: Vital Signs: Last Vital Signs Temp 97.6 F 06/22/21 08:00 Pulse 103 H 06/22/21 09:49 Resp 18 06/22/21 08:00 BP 126/65 06/22/21 09:49 Pulse Ox 91 L 06/22/21 08:00 Body Mass Index 33.1 Const: Other: General - no acute distress, appears comfortable Cardiovascular - regular rate and rhythm, S1-S2 Lungs - normal respiratory effort, clear to auscultation bilaterally, no wheezing Abdomen - soft, nontender, no rebound or guarding Extremities - see pictures below, warm with edeme and tenderness (RLE) Neuro - awake and alert, no focal deficits Skin: Other: Objective Data Current Medications Generic Name Dose Route Start Last Admin Trade Name Freq PRN Reason Stop Dose Admin Acetaminophen 650 mg 06/22/21 01:26 Acetaminophen 325 Mg Tablet PO Q6H PRN Pain, Mild (Pain Scale 1-3) Amiodarone HCl 100 mg 06/22/21 09:00 06/22/21 09:49 Amiodarone Hcl 200 Mg Tablet PO 100 mg DAILY QING Administration Amlodipine Besylate 5 mg 06/22/21 09:00 06/22/21 09:49 Amlodipine Besylate 5 Mg Tablet PO 5 mg DAILY QING Administration Protocol Docusate Sodium 100 mg 06/22/21 01:26 Docusate Sodium 100 Mg Capsule PO DAILY PRN Constipation Heparin Sodium (Porcine) 3,400 unit 06/21/21 23:33 Heparin Sodium,Porcine 5,000 Unit/Ml Vial 40 unit/kg (3400 unit) IVPUSH PROTOCOL BOLUS PRN 40 unit/kg - Heparin Protocol Protocol Heparin Sodium (Porcine) 6,800 unit 06/21/21 23:33 Heparin Sodium,Porcine 5,000 Unit/Ml Vial 80 unit/kg (6800 unit) IVPUSH PROTOCOL BOLUS PRN 80 unit/kg - Heparin Protocol Protocol Hydrochlorothiazide 50 mg 06/22/21 09:00 06/22/21 09:47 Hydrochlorothiazide 50 Mg Tablet PO 50 mg DAILY [facility] Administration Heparin Sodium/Sodium Chloride 25,000 unit in 250 mls @ 15.268 mls/hr 06/21/21 23:45 06/22/21 08:39 IVCONT 18 units/kg/hr .[id number] QING 15.27 mls/hr Titration Protocol 18 UNITS/KG/HR Vancomycin HCl 1,250 mg/ 250 mls @ 166.667 mls/hr 06/22/21 15:00 Sodium Chloride IV Q24H [facility] Pharmacy Consult 1 each 06/22/21 01:30 Consult Rx Vancomycin Dosing MISCELLANE DAILY PRN Consult order Risperidone 0.5 mg 06/22/21 21:00 Risperidone 0.5 Mg Tablet PO BEDTIME [facility] Sodium Chloride 3 ml 06/22/21 08:00 06/22/21 07:57 0.9 % Sodium Chloride Flush 3 Ml Syringe IVFLUSH 3 ml QSHIFT [facility] Administration Spironolactone 50 mg 06/22/21 09:00 06/22/21 09:46 Spironolactone 25 Mg Tablet PO 50 mg DAILY [facility] Administration Protocol Vitamin D 50 mcg 06/22/21 09:00 06/22/21 09:49 Cholecalciferol (Vitamin D3) 25 Mcg Tablet PO 50 mcg DAILY [facility] Administration Labs CBC & Chem 7: 06/22/21 03:20 06/21/21 22:54 Labs: Laboratory Results - last 24 hr 06/21/21 06/21/21 06/21/21 03:20 22:54 22:54 WBC 17.0 H RBC 4.29 Hgb 13.4 Hct 39.3 MCV 91.6 MCH 31.2 MCHC 34.1 RDW 14.0 Plt Count 229 MPV 12.0 Immature Gran % (Auto) 0.6 H Neut % (Auto) 85.2 H Lymph % (Auto) 9.0 L [place] % (Auto) 5.0 Eos % (Auto) 0.0 Baso % (Auto) 0.2 Lymph # (Auto) 1.5 [place] # (Auto) 0.9 Eos # (Auto) 0.0 Baso # (Auto) 0.0 Abs Immat Gran (auto) 0.10 H Absolute Neuts (auto) 14.5 H Absolute Nucleated RBC 0.000 Nucleated RBC % (auto) 0.0 ESR 38 H PT 25.6 H INR 2.2 H APTT PTT (Heparin Protocol) 59.9 Sodium Potassium Chloride Carbon Dioxide Anion Gap BUN Creatinine Estim Creat Clear Calc Estimated GFR Random Glucose Lactic Acid Calcium Magnesium Total Bilirubin Direct Bilirubin AST ALT Alkaline Phosphatase Total Creatine Kinase Troponin I High Sens C-Reactive Protein B-Natriuretic Peptide Total Protein Albumin Urine Color Urine Appearance Urine pH Ur Specific [place] Urine Protein Urine Glucose (UA) Urine Ketones Urine Blood Urine Nitrite Ur Leukocyte Esterase Urine RBC Urine WBC Ur Squamous Epith Cells Urine Bacteria Hyaline Casts Granular Casts Urine Mucus COVID-19 ([facility]) COVID-19 Clin Com 06/21/21 06/21/21 06/21/21 22:54 22:54 22:54 WBC RBC Hgb Hct MCV MCH MCHC RDW Plt Count MPV Immature Gran % (Auto) Neut % (Auto) Lymph % (Auto) [place] % (Auto) Eos % (Auto) Baso % (Auto) Lymph # (Auto) [place] # (Auto) Eos # (Auto) Baso # (Auto) Abs Immat Gran (auto) Absolute Neuts (auto) Absolute Nucleated RBC Nucleated RBC % (auto) ESR PT 28.0 H INR 2.4 H APTT 35.8 PTT (Heparin Protocol) Sodium 137 Potassium 3.0 L Chloride 97 Carbon Dioxide 24 Anion Gap 19 BUN 18 H Creatinine 1.02 Estim Creat Clear Calc 51.4 Estimated GFR 53 Random Glucose 138 H Lactic Acid Calcium 9.4 Magnesium 1.7 Total Bilirubin 0.7 Direct Bilirubin 0.4 AST 21 ALT 23 Alkaline Phosphatase 84 Total Creatine Kinase 49 Troponin I High Sens 8.2 C-Reactive Protein 33.21 H B-Natriuretic Peptide 181 H Total Protein 6.7 Albumin 4.0 Urine Color Urine Appearance Urine pH Ur Specific [place] Urine Protein Urine Glucose (UA) Urine Ketones Urine Blood Urine Nitrite Ur Leukocyte Esterase Urine RBC Urine WBC Ur Squamous Epith Cells Urine Bacteria Hyaline Casts Granular Casts Urine Mucus COVID-19 ([facility]) COVID-19 Clin Com 06/21/21 06/21/21 06/22/21 22:54 23:09 01:28 WBC RBC Hgb Hct MCV MCH MCHC RDW Plt Count MPV Immature Gran % (Auto) Neut % (Auto) Lymph % (Auto) [place] % (Auto) Eos % (Auto) Baso % (Auto) Lymph # (Auto) [place] # (Auto) Eos # (Auto) Baso # (Auto) Abs Immat Gran (auto) Absolute Neuts (auto) Absolute Nucleated RBC Nucleated RBC % (auto) ESR PT INR APTT PTT (Heparin Protocol) Sodium Potassium Chloride Carbon Dioxide Anion Gap BUN Creatinine Estim Creat Clear Calc Estimated GFR Random Glucose Lactic Acid 1.9 Calcium Magnesium Total Bilirubin Direct Bilirubin AST ALT Alkaline Phosphatase Total Creatine Kinase Troponin I High Sens C-Reactive Protein B-Natriuretic Peptide Total Protein Albumin Urine Color YELLOW Urine Appearance CLEAR Urine pH 6.0 Ur Specific [place] 1.020 Urine Protein TRACE Urine Glucose (UA) NEG Urine Ketones 40 Urine Blood 2+ H Urine Nitrite NEG Ur Leukocyte Esterase NEG Urine RBC 1-4 Urine WBC 1-4 Ur Squamous Epith Cells 1+ Urine Bacteria 1+ Hyaline Casts 1-4 Granular Casts 1-4 Urine Mucus 1+ COVID-19 ([facility]) Negative COVID-19 Clin Com See Note 06/22/21 06/22/21 03:20 08:01 WBC 16.1 H RBC 4.14 L Hgb 13.0 Hct 37.8 MCV 91.3 MCH 31.4 MCHC 34.4 RDW 14.0 Plt Count 225 MPV 11.9 Immature Gran % (Auto) Neut % (Auto) Lymph % (Auto) [place] % (Auto) Eos % (Auto) Baso % (Auto) Lymph # (Auto) [place] # (Auto) Eos # (Auto) Baso # (Auto) Abs Immat Gran (auto) Absolute Neuts (auto) Absolute Nucleated RBC 0.000 Nucleated RBC % (auto) 0.0 ESR PT INR APTT PTT (Heparin Protocol) 69.7 Sodium Potassium Chloride Carbon Dioxide Anion Gap BUN Creatinine Estim Creat Clear Calc Estimated GFR Random Glucose Lactic Acid Calcium Magnesium Total Bilirubin Direct Bilirubin AST ALT Alkaline Phosphatase Total Creatine Kinase Troponin I High Sens C-Reactive Protein B-Natriuretic Peptide Total Protein Albumin Urine Color Urine Appearance Urine pH Ur Specific [place] Urine Protein Urine Glucose (UA) Urine Ketones Urine Blood Urine Nitrite Ur Leukocyte Esterase Urine RBC Urine WBC Ur Squamous Epith Cells Urine Bacteria Hyaline Casts Granular Casts Urine Mucus COVID-19 ([facility]) COVID-19 Clin Com Assessment and Plan (1) Sepsis: Status: Acute Assessment and Plan: 70-year-old female with past medical history of hypertension, AFib on Xarelto who presents to hospital with complaints of right lower extremity swelling redness and pain found to have cellulitis as well as DVT Sepsis, improving slowly secondary to Cellulitis f/u cultures continue vancomcyin - f/u vancomcyin trough / renal function Acute DVT while on Xarelto (no doses missed) heparin gtt, suspect she'll need coumadin hematology input A. Fib rates in the 90s-100s was maintained in sinus on Amio - but currently in A. fib unclear why she is not any rate control drugs - may need to add some if rates uncontrolled Hypok repleted in the ED -- will trend Prolonged QT suspected due to electrolyte abnormalities replete electrolytes and then recheck HTN norvsac / hctz Full Code DVT pptx - heparin gtt Quality Stroke Does the patient have a stroke diagnosis?: No VTE Prior VTE?: No VTE Risk Level:: Medical - moderate - high VTE Device Contraindication: Treatment Not Indicated VTE Drug Contraindication: N/A - Med Ordered
--- NOTE | 2021-06-22 10:00 | PC.NURSE ---
Arrived on unit from ED at 0830. IV heparin drip running at 14units/kg/hr. Error by this RN in documentation in the titration screen for heparin at 18units/kg/hr instead if 14units/kg/hr. PTT HD= 69.7 at 0800, no change to heparin drip. Next PTT HD to be drawn at 1400.
[2021-06-22 10:37] LABS: Anion Gap 17 (12-20); Blood Urea Nitrogen 12 mg/dL (9-16); Calcium 8.9 mg/dL (8.4-10.2); Carbon Dioxide 21 mmol/L (22-29); Chloride 99 mmol/L (96-108); Creatinine Clr Calc Pharmacy 59.6; Estimated Glomerular Filt Rate > 60; Glucose Random 161 mg/dL (60-115); Potassium 3.2 mmol/L (3.3-5.1); Sodium 134 mmol/L (135-145)
--- NOTE | 2021-06-22 12:05 | MHC.CM.PN ---
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 PT VERIFIES PCP AND HCP, COPY REQUESTED. D/C PLAN: HOME W/RESUMP OF HOME HEALTH SERVICES AND ? NEW [facility]-REFERRAL PLACED TO [facility] PER FAMILY, DTR TO PROVIDE TRANSPORT. PCP: ANGELA CRUM HCP: MILAN MENJIVAR [phone] ALTERNATE: LILLIAN CHAUDHRY [phone]
--- NOTE | 2021-06-22 12:42 | P.CNHO_ITS ---
Subjective - Subjective Chief complaint: Right leg swelling Patient: new to practice Consult date: 06/22/21 Primary Care Provider: Juana Moran MD HPI - Consult Narrative Reason for consult: Right leg DVT while on Xarelto Narrative: Angeles Pedersen is a 70 year old female who presented to the ER with complaints of right leg redness and swelling which started on Sunday. She noticed pain, redness and had 1 episode of fever. No trauma to the leg but she has been somewhat sedentary because of left knee pain. She is in fact scheduled for left knee replacement in August. No previous episodes of thromboembolism or family history of thrombosis. She has been on Xarelto 20 mg daily for atrial fibrillation and has not skipped any doses. She denies pleuritic chest pain, shortness of breath or cough. She denies fatigue, loss of appetite or weight loss. No abdominal discomfort or change in bowel habits. She had a colonoscopy in 2018. She was diagnosed with left breast cancer in 2018, had lumpectomy followed by radiation therapy. She was not recommended chemotherapy and she declined hormonal therapy. She is followed at [facility] and is up-to-date with mammograms. Review of Systems - Constitutional Reports as per HPI, Reports no additional constitutional complaints - Cardiovascular Reports no additional cardiovascular complaints - Respiratory Reports no additional respiratory complaints - Gastrointestinal Reports no additional gastrointestinal complaints - Musculoskeletal Reports joint pain - Integumentary/Breasts Skin/Breast: Reports no additional skin complaints - Neurologic Reports no additional neurologic complaints [facility] Medical History: Medical History (Last Reviewed 06/22/21 @ 06:37 by Pascale Bermeo MD) HTN (hypertension) Paroxysmal atrial fibrillation Varicose veins of bilateral lower extremities with other complications Family History: Family History (Last Reviewed 06/22/21 @ 06:37 by Pascale Bermeo MD) Father No problems noted. Mother CVD (cardiovascular disease) HTN (hypertension) Surgical History: Surgical History (Last Reviewed 06/22/21 @ 06:37 by Pascale Bermeo MD) Hx of breast biopsy Social History: Social History (Last Reviewed 06/22/21 @ 06:37 by Pascale Bermeo MD) Living Situation History: Household Members: None Housing: House Do you presently have visiting nurse or other home services: Yes Alcohol History Details: Alcohol intake frequency: does not drink Tobacco History: Patient Tobacco Use Status: Never used Tobacco Substance Use History: Use of substances other than those prescribed or required for medical reasons : No Domestic Abuse History: Have you been hit, kicked, punched, or otherwise hurt by someone within the past year? If so, by whom?: No Do you feel safe in your current relationship?: No Current Relationship Is there a partner from a previous relationship who is making you feel unsafe now?: No Are you made to feel afraid or neglected: No Advance Directives: Advance Directives: No Advance Directives Information Provided: Yes Homicidal Assessment: Do you have thoughts of harming others: None Do you have a plan to hurt others: No Plan Nutrition Assessment: Recently lost weight without trying: No Occupation Assessmet: service: No Current occupational status: retired Home Medications and Allergies Current Medications: Current Medications Generic Name Dose Route Start Last Admin Trade Name Freq PRN Reason Stop Dose Admin Acetaminophen 650 mg 06/22/21 01:26 Acetaminophen 325 Mg Tablet PO Q6H PRN Pain, Mild (Pain Scale 1-3) Amiodarone HCl 100 mg 06/22/21 09:00 06/22/21 09:49 Amiodarone Hcl 200 Mg Tablet PO 100 mg DAILY QING Administration Amlodipine Besylate 5 mg 06/22/21 09:00 06/22/21 09:49 Amlodipine Besylate 5 Mg Tablet PO 5 mg DAILY QING Administration Protocol Docusate Sodium 100 mg 06/22/21 01:26 Docusate Sodium 100 Mg Capsule PO DAILY PRN Constipation Heparin Sodium (Porcine) 3,400 unit 06/21/21 23:33 Heparin Sodium,Porcine 5,000 Unit/Ml Vial 40 unit/kg (3400 unit) IVPUSH PROTOCOL BOLUS PRN 40 unit/kg - Heparin Protocol Protocol Heparin Sodium (Porcine) 6,800 unit 06/21/21 23:33 Heparin Sodium,Porcine 5,000 Unit/Ml Vial 80 unit/kg (6800 unit) IVPUSH PROTOCOL BOLUS PRN 80 unit/kg - Heparin Protocol Protocol Hydrochlorothiazide 50 mg 06/22/21 09:00 06/22/21 09:47 Hydrochlorothiazide 50 Mg Tablet PO 50 mg DAILY QING Administration Heparin Sodium/Sodium Chloride 25,000 unit in 250 mls @ 15.268 mls/hr 06/21/21 23:45 06/22/21 09:58 IVCONT 14 units/kg/hr .[id number] [facility] 11.88 mls/hr Titration Protocol 18 UNITS/KG/HR Vancomycin HCl 1,250 mg/ 250 mls @ 166.667 mls/hr 06/22/21 15:00 Sodium Chloride IV Q24H [facility] Pharmacy Consult 1 each 06/22/21 01:30 Consult Rx Vancomycin Dosing MISCELLANE DAILY PRN Consult order Risperidone 0.5 mg 06/22/21 21:00 Risperidone 0.5 Mg Tablet PO BEDTIME [facility] Sodium Chloride 3 ml 06/22/21 08:00 06/22/21 07:57 0.9 % Sodium Chloride Flush 3 Ml Syringe IVFLUSH 3 ml QSHIFT [facility] Administration Spironolactone 50 mg 06/22/21 09:00 06/22/21 09:46 Spironolactone 25 Mg Tablet PO 50 mg DAILY [facility] Administration Protocol Vitamin D 50 mcg 06/22/21 09:00 06/22/21 09:49 Cholecalciferol (Vitamin D3) 25 Mcg Tablet PO 50 mcg DAILY [facility] Administration Home Medications Medication Instructions Recorded Confirmed Type celecoxib 200 mg capsule 200 mg PO DAILY 10/12/20 06/22/21 History cholecalciferol (vitamin D3) 50 50 mcg PO DAILY 10/12/20 06/22/21 History mcg (2,000 unit) tablet glucosamine sulfate 500 mg tablet 500 mg PO DAILY 10/12/20 06/22/21 History (Glucosamine) risperidone 0.5 mg tablet 0.5 mg PO BEDTIME tab 04/05/21 06/22/21 History rivaroxaban 20 mg tablet (Xarelto) 20 mg PO DAILY@1700 06/22/21 06/22/21 History Allergies Allergy/AdvReac Type Severity Reaction Status Date / Time No Known Allergies Allergy Verified 06/21/21 17:55 [No Known Allergies*] Physical Exam Vital signs: Vital Signs Temp 97.6 F 06/22/21 11:17 Pulse 97 06/22/21 11:17 Resp 17 06/22/21 11:17 BP 121/57 L 06/22/21 11:17 Pulse Ox 99 06/22/21 11:17 Intake & Output 06/21/21 06/22/21 06/22/21 18:59 06:59 18:59 Intake Total 300 / 300 125.469 / 125.469 Output Total 1 / 1 Balance 300 / 300 124.469 / 124.469 Urine Output (Average ml/kg/hr) 0.00 Intake: Intake, IV Amount 300 / 300 125.469 / 125.469 Piperacillin Sodium/Tazobactam 50 / 50 3.375 gm In 0.9 % Sodium Chloride 50 ml @ 100 mls/hr IV ONCE ONE Rx#:[id number] vancomycin HCL 1,250 mg In 0.9 250 / 250 % Sodium Chloride 250 ml @ 166. 667 mls/hr IV Q12H [facility] Rx#: [id number] Heparin Sodium,Porcine/1/2NS 25 125.469 / 125.469 ,000 unit In 250 ml @ 18 UNITS/ KG/HR 15.268 mls/hr IVCONT . [id number] [facility] Rx#:[id number] Output: Output, Urine Amount / Other: Number of Unmeasured Voids 2 Urine Bathroom Bathroom Urine Color Yellow Weight 84.822 kg Weight 84.822 kg - Constitutional Present: no acute distress - Routine HEENT Exam Head: Present: normal inspection Eye: Present: EOMI - Routine Neck Exam Present: supple. Absent: lymphadenopathy - Routine Chest/Breast/Axilla Exam Breast: Absent: mass, swelling Axillae: Absent: lymphadenopathy - Routine Respiratory Exam Present: CTAB - Routine Cardiovascular Exam Cardiovascular: Present: S1, S2 - Routine Abdominal Exam Present: normal bowel sounds, soft. Absent: organomegaly - Routine Extremities Exam Present: calf tenderness Comments: Right leg diffuse swelling with erythema and tenderness - Routine Skin Exam Present: intact, erythema. Absent: cyanosis - Routine Neurological Exam Present: alert, oriented X3 Hem/Onc Consult Result - Labs CBC & Chem 7: 06/22/21 03:20 06/22/21 09:29 Labs: Short CBC 06/21/21 06/22/21 Range/Units 22:54 03:20 WBC 17.0 H 16.1 H (4.8-10.8) X10*3/uL Hgb 13.4 13.0 (12.0-16.0) g/dl Hct 39.3 37.8 (37-47) % Plt Count 229 225 (160-400) X10*3/uL BMP 06/21/21 06/22/21 22:54 09:29 Sodium 137 134 L Potassium 3.0 L 3.2 L Chloride 97 99 Carbon Dioxide 24 21 L BUN 18 H 12 Creatinine 1.02 0.88 Calcium 9.4 8.9 Cardiac Enzymes 06/21/21 Range/Units 22:54 Total Creatine Kinase 49 (26-140) U/L Liver Function 06/21/21 Range/Units 22:54 Total Bilirubin 0.7 (0.0-1.0) mg/dL Direct Bilirubin 0.4 (0.0-0.5) mg/dL AST 21 (5-31) U/L ALT 23 (0-31) U/L Alkaline Phosphatase 84 (39-117) U/L Albumin 4.0 (3.5-5.0) g/dL Urine 06/22/21 Range/Units 01:28 Urine Color YELLOW Urine Appearance CLEAR Urine pH 6.0 (5.0-8.0) Ur Specific [place] 1.020 (1.005-1.025) Urine Protein TRACE (NEG-TRACE) MG/DL Urine Glucose (UA) NEG (NEG) MG/DL - Imaging Venous US Radiologist's impression: ITS Impressions Venous Duplex 06/21/21 18:36 IMPRESSION: DVT involving posterior tibial vein. No evidence of DVT from the knee upwards. . Chest CTA 06/21/21 21:29 IMPRESSION: * No pulmonary embolism. * No aortic aneurysm or dissection. * No pneumonitis, parenchymal consolidation or pneumothorax. VTE: negative Assessment and Plan (1) DVT (deep venous thrombosis) Status: Acute Qualifiers: DVT location: lower extremity Affected thrombotic vein of extremity: tibial 1. This is a 70-year-old woman with spontaneous right lower extremity DVT while on full anticoagulation with Xarelto 20 mg once daily for atrial fibrillation. Risk factors being obesity and decreased mobility because of arthritic pain in her left lower extremity. She is not a smoker, no past history of thromboembolism and no family history of thrombophilia. She does have history of cancer of the breast for which she received treatment at [facility] in 2018/2018. Based on her history it appears to be early stage and she received surgery followed by adjuvant radiation therapy. She did not receive hormonal therapy although it was recommended for her. CT angiogram is negative for pulmonary embolism as well as any evidence of cancer recurrence. I would also recommend a CT abdomen/pelvis he to rule out malignancy as a cause of unprovoked DVT. It is unclear why she failed Xarelto, consider switching to Eliquis if covered by insurance. 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 I thank you for this consultation.
[2021-06-22 14:23] LABS: PTT Heparin Drip 75.8 SEC (53-77.9)
[2021-06-22] MEDS: Potassium Chloride Packet 20 MEQ PACKET 40 MEQ PO (15:40)
[2021-06-22] MEDS: Acetaminophen 325 MG TABLET 650 MG PO (15:40)
[2021-06-22] MEDS: Enoxaparin Sodium 100 MG/ML SYRINGE 85 MG SUBCUT (19:27)
[2021-06-22] MEDS: risperiDONE 0.5 MG TABLET PO (20:59)
[2021-06-23] VITALS (11 sets, daily range): BP systolic 104–133; BP diastolic 60–74; PULSE 80–103; RESP 16–20; TEMP 36.2–36.9; O2SAT 90–98
[2021-06-23 07:19] LABS: Hematocrit 36.4 % (37-47); Hemoglobin 12.7 g/dl (12.0-16.0); Mean Corpuscular HGB Conc 34.9 g/dl (31.0-35.0); Mean Corpuscular Hemoglobin 31.7 pg (27.0-33.0); Mean Corpuscular Volume 90.8 fL (80-98); Mean Platelet Volume 12.3 fL (9.4-12.3); Platelet Count 244 X10*3/uL (160-400); Red Blood Count 4.01 X10*6/uL (4.20-5.50); White Blood Count 13.9 X10*3/uL (4.8-10.8)
[2021-06-23 07:45] LABS: Anion Gap 19 (12-20); Blood Urea Nitrogen 15 mg/dL (9-16); Calcium 8.5 mg/dL (8.4-10.2); Carbon Dioxide 19 mmol/L (22-29); Chloride 103 mmol/L (96-108); Creatinine Clr Calc Pharmacy 51.9; Estimated Glomerular Filt Rate 54; Glucose Random 112 mg/dL (60-115); Potassium 3.4 mmol/L (3.3-5.1); Sodium 138 mmol/L (135-145)
[2021-06-23] MEDS: 0.9 % Sodium Chloride Flush 3 ML SYRINGE IVFLUSH ×2 (09:13→20:06)
[2021-06-23] MEDS: Cholecalciferol (Vitamin D3) 25 MCG TABLET 50 MCG PO (09:14)
[2021-06-23] MEDS: Amiodarone HCL 200 MG TABLET 100 MG PO (09:14)
[2021-06-23] MEDS: Enoxaparin Sodium 100 MG/ML SYRINGE 85 MG SUBCUT ×2 (09:16→20:01)
--- NOTE | 2021-06-23 10:33 | PM.CNCAR ---
History of Present Illness History of Present Illness Date of Service: 06/23/21 Consult reason: atrial fibrillation Chief complaint: DVT, Failed Anticoagulation Narrative: This is a cardiology consultation regarding atrial fibrillation. This is a patient of Dr. Shepherd from our office. She has a history of paroxysmal atrial fibrillation. She has had prior cardioversion. She is maintained on low-dose amiodarone. She has also been referred to [facility] for an ablation but that has not been completed as yet from my understanding. Otherwise she remains on anticoagulation with Xarelto 20 mg every day. She was admitted with complaints of right lower extremity redness and found to have cellulitis as well as DVT. It appears that the DVT has happened in spite of taking full dose Xarelto. In this context, she really does not have any cardiac symptoms at all like chest pain or shortness of breath or palpitations but however she has been in atrial fibrillation with rapid rate and hence we have been asked to see her. She totally denies any symptoms whatsoever from cardiac. Review of Systems Review of Systems: Yes all other systems are reviewed and are negative Cardiovascular: Cardiovascular: Reports as per HPI, Reports no additional cardiovascular complaints, Denies acrocyanosis, Denies cool extremities, Denies painful fingertips, Denies chest pain, Denies chest pain at rest, Denies diaphoresis, Denies syncope, Denies irregular heart rhythm, Denies claudication, Denies leg edema, Denies lightheadedness, Denies palpitations and Denies dyspnea Respiratory: Respiratory: Denies dyspnea Neurologic: Denies syncope Endocrine: Endocrine: Denies palpitations [facility] Past Medical History Medical History (Updated 06/23/21 @ 10:43 by Chris Tejada MD) HTN (hypertension) Paroxysmal atrial fibrillation Varicose veins of bilateral lower extremities with other complications Family History Family History Father No problems noted. Mother CVD (cardiovascular disease) HTN (hypertension) Surgical History Surgical History (Updated 06/22/21 @ 12:43 by Daksha Suazo MD) Hx of breast biopsy Social History Social History Household Members: None Housing: House Do you presently have visiting nurse or other home services: Yes Patient Tobacco Use Status: Never used Tobacco service: No Current occupational status: retired [employer] Allergies Allergy/AdvReac Type Severity Reaction Status Date / Time No Known Allergies Allergy Verified 06/21/21 17:55 [No Known Allergies*] Active Medications: Current Medications Generic Name Dose Route Start Last Admin Trade Name Jon PRN Reason Stop Dose Admin Acetaminophen 650 mg 06/22/21 01:26 06/22/21 15:40 Acetaminophen 325 Mg Tablet PO 650 mg Q6H PRN Administration Pain, Mild (Pain Scale 1-3) Amiodarone HCl 100 mg 06/22/21 09:00 06/23/21 09:14 Amiodarone Hcl 200 Mg Tablet PO 100 mg DAILY QING Administration Amlodipine Besylate 5 mg 06/22/21 09:00 06/22/21 09:49 Amlodipine Besylate 5 Mg Tablet PO 5 mg DAILY QING Administration Protocol Docusate Sodium 100 mg 06/22/21 01:26 Docusate Sodium 100 Mg Capsule PO DAILY PRN Constipation Enoxaparin Sodium 85 mg 06/22/21 20:00 06/23/21 09:16 Enoxaparin Sodium 100 Mg/Ml Syringe SUBCUT 85 mg Q12H QING Administration Hydrochlorothiazide 50 mg 06/22/21 09:00 06/22/21 09:47 Hydrochlorothiazide 50 Mg Tablet PO 50 mg DAILY QING Administration Vancomycin HCl 1,250 mg/ 250 mls @ 166.667 mls/hr 06/22/21 15:00 06/22/21 17:33 Sodium Chloride IV Infused Q24H [facility] Infusion Pharmacy Consult 1 each 06/22/21 01:30 Consult Rx Vancomycin Dosing MISCELLANE DAILY PRN Consult order Risperidone 0.5 mg 06/22/21 21:00 06/22/21 20:59 Risperidone 0.5 Mg Tablet PO 0.5 mg BEDTIME QING Administration Sodium Chloride 3 ml 06/22/21 08:00 06/23/21 09:13 0.9 % Sodium Chloride Flush 3 Ml Syringe IVFLUSH 3 ml QSHIFT QING Administration Spironolactone 50 mg 06/22/21 09:00 06/22/21 09:46 Spironolactone 25 Mg Tablet PO 50 mg DAILY QING Administration Protocol Vitamin D 50 mcg 06/22/21 09:00 06/23/21 09:14 Cholecalciferol (Vitamin D3) 25 Mcg Tablet PO 50 mcg DAILY QING Administration Home Medications Medication Instructions Recorded Confirmed Last Taken Type celecoxib 200 mg capsule 200 mg PO DAILY 10/12/20 06/22/21 06/21/21 History cholecalciferol (vitamin D3) 50 50 mcg PO DAILY 10/12/20 06/22/21 06/21/21 History mcg (2,000 unit) tablet glucosamine sulfate 500 mg tablet 500 mg PO DAILY 10/12/20 06/22/21 06/21/21 History (Glucosamine) risperidone 0.5 mg tablet 0.5 mg PO BEDTIME tab 04/05/21 06/22/21 06/21/21 History rivaroxaban 20 mg tablet (Xarelto) 20 mg PO DAILY@1700 06/22/21 06/22/21 06/20/21 History Physical Exam Vital Signs: Vital Signs: Last Vital Signs Temp 98.2 F 06/23/21 07:39 Pulse 103 H 06/23/21 09:14 Resp 18 06/23/21 07:39 BP 104/61 06/23/21 09:14 Pulse Ox 96 06/23/21 07:39 Body Mass Index 33.1 Const: General: cooperative and no acute distress HENMT: Other: Unremarkable Neck: Neck: Yes normal visual inspection Chest: Chest palpation & inspection: normal inspection of the chest Resp: Auscultation: clear to auscultation bilaterally, no crackles and no wheezes Cardio: Jugular venous distension: no JVD Palpation: normal PMI Heart sounds: S1 normal heart sound present, S2 normal heart sound present, no gallops, Murmur heart sound present (2/6 TRAY aortic area) and no rubs GI: Palpation (GI): Soft to palpation Back/Spine/Pelvis: Other: unremarkable Skin: General skin exam: no rashes or lesions noted Neuro: Cranial nerves: Yes Other cranial nerve findings present Extrem: Other: Erythema and redness with swelling in the right lower extremity. Psych: Mental Status: other Results Labs and Meds Result diagrams: 06/23/21 06:34 06/23/21 06:34 Lab results: Laboratory Results - last 24 hr 06/22/21 06/22/21 06/23/21 09:29 14:03 06:34 WBC 13.9 H RBC 4.01 L Hgb 12.7 Hct 36.4 L MCV 90.8 MCH 31.7 MCHC 34.9 RDW 14.0 Plt Count 244 MPV 12.3 Absolute Nucleated RBC 0.000 Nucleated RBC % (auto) 0.0 PTT (Heparin Protocol) 75.8 Sodium 134 L Potassium 3.2 L Chloride 99 Carbon Dioxide 21 L Anion Gap 17 BUN 12 Creatinine 0.88 Estim Creat Clear Calc 59.6 Estimated GFR > 60 Random Glucose 161 H Calcium 8.9 Magnesium 06/23/21 06:34 WBC RBC Hgb Hct MCV MCH MCHC RDW Plt Count MPV Absolute Nucleated RBC Nucleated RBC % (auto) PTT (Heparin Protocol) Sodium 138 Potassium 3.4 Chloride 103 Carbon Dioxide 19 L Anion Gap 19 BUN 15 Creatinine 1.01 Estim Creat Clear Calc 51.9 Estimated GFR 54 Random Glucose 112 Calcium 8.5 Magnesium 2.0 ECG Interpretation: EKG on admission with atrial fibrillation at 105/Min. Nonspecific ST-T changes. Prior EKG from December 2019 with sinus rhythm and blocked PAC. Imaging Radiologist's impression: Impressions Abdomen/Pelvis CT 06/22/21 15:04 IMPRESSION: Inflammatory streaking seen in the right inguinal region. No suspicious lytic or sclerotic lesions within visualized bone. Multilevel degenerative disc disease is seen. Assessment and Plan (1) Atrial fibrillation with rapid ventricular response: Status: Acute (2) DVT (deep venous thrombosis): Qualifiers: Affected thrombotic vein of extremity: tibial DVT location: lower extremity Chronicity: acute Laterality: right Qualified Code(s): I82.441 - Acute embolism and thrombosis of right tibial vein Status: Acute Acute DVT in spite of taking Xarelto. Atrial fibrillation with rapid rate but not having any symptoms. This is in spite of low-dose amiodarone. In the absence of symptoms as well as acute DVT, we will try to manage with rate control. May switch the amlodipine to diltiazem. Possibly add digoxin. Anticoagulation comments from Hematology noted and she is now on Lovenox. Will follow up with you. Procedures Date of Service Date of Service: 06/23/21
--- NOTE | 2021-06-23 11:44 | HO.PM.IMPN ---
Subjective Subjective Date of Service: 06/23/21 Interval History: Seen and examined this morning. Complaining of burning pain in right leg Denies any palpitations, chest pain, shortness of breath, dizziness. Denies fever, chills Review of Systems Review of Systems: Yes all other systems are reviewed and are negative Constitutional Constitutional: Denies chills and Denies fever(s) Cardiovascular Cardiovascular: Denies chest pain Respiratory Respiratory: Denies cough Gastrointestinal Gastrointestinal: Denies abdominal pain Physical Exam Vital Signs: Vital Signs: Last Vital Signs Temp 98.2 F 06/23/21 11:22 Pulse 94 06/23/21 11:22 Resp 16 06/23/21 11:22 BP 129/66 06/23/21 11:22 Pulse Ox 98 06/23/21 11:22 Body Mass Index 33.1 Const: Nutritional Appearance: well nourished Orientation/consciousness: patient oriented x3 HENMT: Head: Yes normocephalic and Yes atraumatic Eyes: Sclerae: sclerae normal Resp: Effort & Inspection: normal respiratory effort and no respiratory distress Auscultation: clear to auscultation bilaterally Cardio: Rate: regular rate Rhythm: abnormal rhythm irregularly irregular GI: Palpation (GI): Soft to palpation and nontender Skin: Other: Neuro: General: patient oriented x3 Cranial nerves: Yes CN's II-XII intact bilaterally and Yes Bilaterally intact EOM present Objective Data Current Medications Generic Name Dose Route Start Last Admin Trade Name Freq PRN Reason Stop Dose Admin Acetaminophen 650 mg 06/22/21 01:26 06/22/21 15:40 Acetaminophen 325 Mg Tablet PO 650 mg Q6H PRN Administration Pain, Mild (Pain Scale 1-3) Amiodarone HCl 100 mg 06/22/21 09:00 06/23/21 09:14 Amiodarone Hcl 200 Mg Tablet PO 100 mg DAILY QING Administration Digoxin 0.25 mg 06/23/21 12:00 Digoxin 0.25 Mg Tablet PO 06/23/21 18:01 Q6H QING Diltiazem HCl 120 mg 06/23/21 11:34 Diltiazem Hcl Cd 120 Mg Cap.Er.Deg PO DAILY QING Protocol Docusate Sodium 100 mg 06/22/21 01:26 Docusate Sodium 100 Mg Capsule PO DAILY PRN Constipation Enoxaparin Sodium 85 mg 06/22/21 20:00 06/23/21 09:16 Enoxaparin Sodium 100 Mg/Ml Syringe SUBCUT 85 mg Q12H QING Administration Hydrochlorothiazide 50 mg 06/22/21 09:00 06/22/21 09:47 Hydrochlorothiazide 50 Mg Tablet PO 50 mg DAILY QING Administration Cefazolin Sodium 1 gm/ Sodium 50 mls @ 100 mls/hr 06/23/21 11:00 Chloride IV Q8H QING Risperidone 0.5 mg 06/22/21 21:00 06/22/21 20:59 Risperidone 0.5 Mg Tablet PO 0.5 mg BEDTIME QING Administration Sodium Chloride 3 ml 06/22/21 08:00 06/23/21 09:13 0.9 % Sodium Chloride Flush 3 Ml Syringe IVFLUSH 3 ml QSHIFT QING Administration Spironolactone 50 mg 06/22/21 09:00 06/22/21 09:46 Spironolactone 25 Mg Tablet PO 50 mg DAILY QING Administration Protocol Vitamin D 50 mcg 06/22/21 09:00 06/23/21 09:14 Cholecalciferol (Vitamin D3) 25 Mcg Tablet PO 50 mcg DAILY QING Administration Labs CBC & Chem 7: 06/23/21 06:34 06/23/21 06:34 Labs: Laboratory Results - last 24 hr 06/22/21 06/23/21 06/23/21 14:03 06:34 06:34 MCV 90.8 MCH 31.7 MCHC 34.9 RDW 14.0 Plt Count 244 MPV 12.3 Absolute Nucleated RBC 0.000 Nucleated RBC % (auto) 0.0 PTT (Heparin Protocol) 75.8 Anion Gap 19 Estim Creat Clear Calc 51.9 Estimated GFR 54 Random Glucose 112 Calcium 8.5 Magnesium 2.0 Microbiology Microbiology Results: Microbiology 06/21/21 23:09 Blood Culture - Preliminary Blood - Venous No growth after 24 hours. 06/21/21 22:54 Blood Culture - Preliminary Blood - Venous No growth after 24 hours. Assessment and Plan (1) Cellulitis: Status: Acute (2) DVT (deep venous thrombosis): Status: Acute Assessment and Plan: This is a 70-year-old female with past medical history of hypertension, AFib on Xarelto who presents to hospital with complaints of right lower extremity swelling redness and pain found to have cellulitis as well as DVT Sepsis, improving slowly secondary to Cellulitis f/u cultures Will change antibiotics from vancomycin to kefzol Acute DVT while on Xarelto (no doses missed) Anticoagulation changed to therapeutic Lovenox per Hematology recommendation hematology input A. Fib rates in the 90s-100s was maintained in sinus on Amio - but currently in A. fib Seen by cardiology -digoxin load -DC Norvasc, start Cardizem -continue low-dose amiodarone -Lovenox for anticoagulation Hypok resolved repleted in the ED -- will trend Prolonged QT suspected due to electrolyte abnormalities replete electrolytes and then recheck HTN -HCTZ, aldactone on hold for soft BP -monitor BP closely, resume as BP allows Full Code DVT pptx - lovenox Attending-Dr. Larios Quality Stroke Does the patient have a stroke diagnosis?: No VTE Prior VTE?: No VTE Risk Level:: Medical - moderate - high VTE Device Contraindication: Treatment Not Indicated VTE Drug Contraindication: N/A - Med Ordered
[2021-06-23] MEDS: dilTIAZem HCL CD 120 MG CAP.ER.DEG PO (12:35)
[2021-06-23] MEDS: Acetaminophen 325 MG TABLET 650 MG PO (12:39)
[2021-06-23] MEDS: Digoxin 0.25 MG TABLET PO ×2 (14:33→17:58)
[2021-06-23 15:13] LABS: Vancomycin Trough 6.1 mcg/mL (10.0-20.0)
[2021-06-23] MEDS: risperiDONE 0.5 MG TABLET PO (20:01)
--- NOTE | 2021-06-24 | ECG_ITS ---
Test Reason : QTC CHECK Blood Pressure : / mmHG Vent. Rate : 084 BPM Atrial Rate : 120 BPM P-R Int : 000 ms QRS Dur : 090 ms QT Int : 502 ms P-R-T Axes : 000 -27 033 degrees QTc Int : 593 ms Atrial fibrillation Minimal voltage criteria for LVH, may be normal variant Nonspecific ST abnormality Prolonged QT Abnormal ECG When compared with ECG of 21-JUN-2021 23:20, No significant change was found Referred By: Itz Larios Electronically Signed By:ESAU LLOYD
[2021-06-24 03:21] VITALS: BP 147/76; PULSE 98; RESP 17; TEMP 36.1; O2SAT 93
[2021-06-24 05:22] LABS: Hematocrit 33.2 % (37-47); Hemoglobin 11.4 g/dl (12.0-16.0); Mean Corpuscular HGB Conc 34.3 g/dl (31.0-35.0); Mean Corpuscular Hemoglobin 30.9 pg (27.0-33.0); Mean Platelet Volume 12.2 fL (9.4-12.3); Platelet Count 235 X10*3/uL (160-400); Red Blood Count 3.69 X10*6/uL (4.20-5.50); Red Cell Distribution Width 13.8 % (11.0-16.0); White Blood Count 11.2 X10*3/uL (4.8-10.8)
[2021-06-24 08:00] VITALS: BP 133/61; PULSE 86; RESP 18; TEMP 36.4; O2SAT 94
[2021-06-24] MEDS: Cholecalciferol (Vitamin D3) 25 MCG TABLET 50 MCG PO (09:09)
[2021-06-24] MEDS: dilTIAZem HCL CD 120 MG CAP.ER.DEG PO (09:10)
[2021-06-24] MEDS: Amiodarone HCL 200 MG TABLET 100 MG PO (09:10)
[2021-06-24] MEDS: Enoxaparin Sodium 100 MG/ML SYRINGE 85 MG SUBCUT ×2 (09:11→19:18)
[2021-06-24] MEDS: 0.9 % Sodium Chloride Flush 3 ML SYRINGE IVFLUSH ×3 (09:11→19:20)
--- NOTE | 2021-06-24 09:25 | HO.PM.IMPN ---
Subjective Subjective Date of Service: 06/24/21 Interval History: seen and examined this AM reports leg feels slightly better compared to yesterday denies any fevers or chills Review of Systems General - no fevers or chills Cardiovascular - no chest pain Respiratory - no shortness of breath or cough Abdominal- no abdominal pain, nausea, vomiting, diarrhea Physical Exam Vital Signs: Vital Signs: Last Vital Signs Temp 97.5 F 06/24/21 08:00 Pulse 86 06/24/21 08:00 Resp 18 06/24/21 08:00 BP 133/61 06/24/21 08:00 Pulse Ox 94 06/24/21 08:00 Body Mass Index 33.1 Const: General: cooperative and no acute distress Nutritional Appearance: well nourished Orientation/consciousness: patient oriented x3 HENMT: Head: Yes normocephalic and Yes atraumatic Eyes: General: appearance normal, both eyes and all related structures Sclerae: sclerae normal Resp: Effort & Inspection: normal respiratory effort, able to speak in complete sentences and no respiratory distress Auscultation: clear to auscultation bilaterally Cardio: Rate: regular rate Rhythm: abnormal rhythm irregularly irregular GI: Palpation (GI): Soft to palpation and nontender Auscultation: normal bowel sounds Skin: Other: RLE erythema improved compared to yesterday swelling persists tenderness improved Neuro: General: patient oriented x3 Cranial nerves: Yes CN's II-XII intact bilaterally and Yes Bilaterally intact EOM present Cognition (Neuro): normal cognition Objective Data Current Medications Generic Name Dose Route Start Last Admin Trade Name Freq PRN Reason Stop Dose Admin Acetaminophen 650 mg 06/22/21 01:26 06/23/21 12:39 Acetaminophen 325 Mg Tablet PO 650 mg Q6H PRN Administration Pain, Mild (Pain Scale 1-3) Amiodarone HCl 100 mg 06/22/21 09:00 06/24/21 09:10 Amiodarone Hcl 200 Mg Tablet PO 100 mg DAILY QING Administration Diltiazem HCl 120 mg 06/23/21 11:34 06/24/21 09:10 Diltiazem Hcl Cd 120 Mg Cap.Er.Deg PO 120 mg DAILY QING Administration Protocol Docusate Sodium 100 mg 06/22/21 01:26 Docusate Sodium 100 Mg Capsule PO DAILY PRN Constipation Enoxaparin Sodium 85 mg 06/22/21 20:00 06/24/21 09:11 Enoxaparin Sodium 100 Mg/Ml Syringe SUBCUT 85 mg Q12H QING Administration Hydrochlorothiazide 50 mg 06/22/21 09:00 06/22/21 09:47 Hydrochlorothiazide 50 Mg Tablet PO 50 mg DAILY QING Administration Cefazolin Sodium 1 gm/ Sodium 50 mls @ 100 mls/hr 06/23/21 11:00 06/24/21 03:35 Chloride IV Infused Q8H QING Infusion Risperidone 0.5 mg 06/22/21 21:00 06/23/21 20:01 Risperidone 0.5 Mg Tablet PO 0.5 mg BEDTIME QING Administration Sodium Chloride 3 ml 06/22/21 08:00 06/24/21 09:11 0.9 % Sodium Chloride Flush 3 Ml Syringe IVFLUSH 3 ml QSHIFT QING Administration Spironolactone 50 mg 06/22/21 09:00 06/22/21 09:46 Spironolactone 25 Mg Tablet PO 50 mg DAILY QING Administration Protocol Vitamin D 50 mcg 06/22/21 09:00 06/24/21 09:09 Cholecalciferol (Vitamin D3) 25 Mcg Tablet PO 50 mcg DAILY QING Administration Labs CBC & Chem 7: 06/24/21 04:33 06/23/21 06:34 Labs: Laboratory Results - last 24 hr 06/23/21 06/24/21 14:23 04:33 MCV 90.0 MCH 30.9 MCHC 34.3 RDW 13.8 Plt Count 235 MPV 12.2 Absolute Nucleated RBC 0.000 Nucleated RBC % (auto) 0.0 Vancomycin Trough 6.1 L Microbiology Microbiology Results: Microbiology 06/21/21 23:09 Blood Culture - Preliminary Blood - Venous No growth after 48 hours. 06/21/21 22:54 Blood Culture - Preliminary Blood - Venous No growth after 48 hours. Assessment and Plan (1) Atrial fibrillation with rapid ventricular response: Status: Acute Assessment and Plan: This is a 70-year-old female with past medical history of hypertension, AFib on Xarelto who presents to hospital with complaints of right lower extremity swelling redness and pain found to have cellulitis as well as DVT Sepsis, improving slowly secondary to Cellulitis, which is improving after antibiotic change from IV vancomcyin to Kefzol (day #2) continue kefzol Acute DVT while on Xarelto (no doses missed) Anticoagulation changed to therapeutic Lovenox per Hematology recommendation Vascular surgery eval per family request A. Fib rates in the 90s-100s was maintained in sinus on Amio - but currently in A. fib Seen by cardiology s/p dig load; norvasc changed to cardizem 120mg CD, continue amio, lovenox for dvt pptx Hypok resolved Prolonged QT repeat EKG today HTN HCTZ/Aldactone on hold due to soft bp upon admission, now improving; will consider re-introducing if bp remains stable next 24 hours Norvasc changed to cardizem as above Full Code DVT pptx, Lovenox Quality Stroke Does the patient have a stroke diagnosis?: No VTE Prior VTE?: No VTE Risk Level:: Medical - moderate - high VTE Device Contraindication: Treatment Not Indicated VTE Drug Contraindication: N/A - Med Ordered
[2021-06-24] MEDS: Acetaminophen 325 MG TABLET 650 MG PO (11:09)
--- NOTE | 2021-06-24 11:25 | PM.PNCARD ---
Subjective Subjective Date of Service: 06/24/21 Interval history: Feels well. No cardiac complaints. Review of Systems Review of Systems Yes all other systems are reviewed and are negative Cardiovascular: Reports as per HPI, Reports no additional cardiovascular complaints, Denies acrocyanosis, Denies cool extremities, Denies painful fingertips, Denies chest pain, Denies chest pain at rest, Denies diaphoresis, Denies syncope, Denies irregular heart rhythm, Denies claudication, Denies leg edema, Denies lightheadedness, Denies palpitations and Denies dyspnea Respiratory: Denies dyspnea Denies syncope Endocrine: Denies palpitations Physical Exam Vital Signs: Last Vital Signs Temp 97.5 F 06/24/21 08:00 Pulse 86 06/24/21 08:00 Resp 18 06/24/21 08:00 BP 133/61 06/24/21 08:00 Pulse Ox 94 06/24/21 08:00 Body Mass Index 33.1 Const General: cooperative and no acute distress [facility] Other: Unremarkable Neck Neck: Yes normal visual inspection Chest Chest palpation & inspection: normal inspection of the chest Resp Auscultation: clear to auscultation bilaterally, no crackles and no wheezes Cardio Jugular venous distension: no JVD Palpation: normal PMI Heart sounds: S1 normal heart sound present, S2 normal heart sound present, no gallops, Murmur heart sound present (2/6 TRAY aortic area) and no rubs GI Palpation (GI): Soft to palpation Back/Spine/Pelvis Other: unremarkable Skin General skin exam: no rashes or lesions noted Neuro Cranial nerves: Yes Other cranial nerve findings present Extrem Other: Erythema and redness with swelling in the right lower extremity. Psych Mental Status: other Results Labs and Meds Result diagrams: 06/24/21 04:33 06/23/21 06:34 Lab results: Laboratory Results - last 24 hr 06/23/21 06/24/21 14:23 04:33 WBC 11.2 H RBC 3.69 L Hgb 11.4 L Hct 33.2 L MCV 90.0 MCH 30.9 MCHC 34.3 RDW 13.8 Plt Count 235 MPV 12.2 Absolute Nucleated RBC 0.000 Nucleated RBC % (auto) 0.0 Vancomycin Trough 6.1 L Progress Note: A&P Assessment and plan (1) Atrial fibrillation with rapid ventricular response: Status: Acute (2) DVT (deep venous thrombosis): Status: Acute Assessment and Plan: Acute DVT in spite of taking Xarelto. She had atrial fibrillation with rapid rate but not having any symptoms. This is in spite of Amiodarone. In the absence of symptoms as well as acute DVT, we will try to manage with rate control. Doing quite well on diltiazem and digoxin and the rate is only in the 70s and she has no symptoms. May stop amiodarone. Anticoagulation comments from Hematology noted and she is now on Lovenox. She has plans for atrial fibrillation ablation, but that may have to be postponed due to acute DVT. Will follow up with you. Fall Risk Details Current Medications: Current Medications Generic Name Dose Route Start Last Admin Trade Name Freq PRN Reason Stop Dose Admin Acetaminophen 650 mg 06/22/21 01:26 06/24/21 11:09 Acetaminophen 325 Mg Tablet PO 650 mg Q6H PRN Administration Pain, Mild (Pain Scale 1-3) Amiodarone HCl 100 mg 06/22/21 09:00 06/24/21 09:10 Amiodarone Hcl 200 Mg Tablet PO 100 mg DAILY QING Administration Diltiazem HCl 120 mg 06/23/21 11:34 06/24/21 09:10 Diltiazem Hcl Cd 120 Mg Cap.Er.Deg PO 120 mg DAILY QING Administration Protocol Docusate Sodium 100 mg 06/22/21 01:26 Docusate Sodium 100 Mg Capsule PO DAILY PRN Constipation Enoxaparin Sodium 85 mg 06/22/21 20:00 06/24/21 09:11 Enoxaparin Sodium 100 Mg/Ml Syringe SUBCUT 85 mg Q12H QING Administration Hydrochlorothiazide 50 mg 06/22/21 09:00 06/22/21 09:47 Hydrochlorothiazide 50 Mg Tablet PO 50 mg DAILY QING Administration Cefazolin Sodium 1 gm/ Sodium 50 mls @ 100 mls/hr 06/23/21 11:00 06/24/21 11:09 Chloride IV 100 mls/hr Q8H QING Administration Risperidone 0.5 mg 06/22/21 21:00 06/23/21 20:01 Risperidone 0.5 Mg Tablet PO 0.5 mg BEDTIME QING Administration Sodium Chloride 3 ml 06/22/21 08:00 06/24/21 09:11 0.9 % Sodium Chloride Flush 3 Ml Syringe IVFLUSH 3 ml QSHIFT QING Administration Spironolactone 50 mg 06/22/21 09:00 06/22/21 09:46 Spironolactone 25 Mg Tablet PO 50 mg DAILY QING Administration Protocol Vitamin D 50 mcg 06/22/21 09:00 06/24/21 09:09 Cholecalciferol (Vitamin D3) 25 Mcg Tablet PO 50 mcg DAILY QING Administration Time Spent With Patient Time: Total time spent is greater than 50% in coordination of care (as documented) at patient's floor/unit and/or counseling patient: Time with patient: less than 15 minutes Progress Note: Quality Stroke Does the patient have a stroke diagnosis?: No Procedures Date of Service Date of Service: 06/24/21
[2021-06-24 12:00] VITALS: BP 126/56; PULSE 98; RESP 18; TEMP 36.3; O2SAT 95
--- NOTE | 2021-06-24 12:58 | P.CONGS_ITS ---
History of Present Illness Consult details Consult date: 06/24/21 Reason for consult: other (DVT) Narrative: Very pleasant 70-year-old female presents for evaluation swelling of the right lower extremity. She had developed significant swelling and cellulitis in presented to the emergency room. She was subsequently admitted. Upon workup she was discovered to have right posterior tibial vein thrombosis. She has been anticoagulated. She now presents to us for vascular evaluation. Review of Systems Constitutional: Constitutional: Reports as per HPI ENT: Reports system reviewed and no additional complaints, except as documen nila Cardiovascular: Cardiovascular: Denies chest pain, Denies chest pain at rest and Denies chest pain with activity Respiratory: Respiratory: Denies chest congestion and Denies cough Gastrointestinal: Gastrointestinal: Reports no additional gastrointestinal complaints Musculoskeletal: Musculoskeletal: Denies abnormal gait Integumentary/Breasts: Skin/Breast: Reports pruritus and Denies wounds Neurologic: Reports system reviewed and no additional complaints, except as documented and Denies abnormal gait Psychiatric: Psychiatric: Denies no additional psychiatric complaints PMFSH Past Medical History Medical History (Updated 06/23/21 @ 10:43 by Chris Tejada MD) HTN (hypertension) Paroxysmal atrial fibrillation Varicose veins of bilateral lower extremities with other complications Family History Family History Father No problems noted. Mother CVD (cardiovascular disease) HTN (hypertension) Surgical History Surgical History (Updated 06/22/21 @ 12:43 by Daksha Suazo MD) Hx of breast biopsy Social History Social History Household Members: None Housing: House Do you presently have visiting nurse or other home services: Yes Patient Tobacco Use Status: Never used Tobacco service: No Current occupational status: retired Meds Allergies Allergy/AdvReac Type Severity Reaction Status Date / Time No Known Allergies Allergy Verified 06/21/21 17:55 [No Known Allergies*] Active Medications: Current Medications Generic Name Dose Route Start Last Admin Trade Name Freq PRN Reason Stop Dose Admin Acetaminophen 650 mg 06/22/21 01:26 06/24/21 11:09 Acetaminophen 325 Mg Tablet PO 650 mg Q6H PRN Administration Pain, Mild (Pain Scale 1-3) Digoxin 0.125 mg 06/25/21 09:00 Digoxin 0.125 Mg Tablet PO DAILY [facility] Diltiazem HCl 120 mg 06/23/21 11:34 06/24/21 09:10 Diltiazem Hcl Cd 120 Mg Cap.Er.Deg PO 120 mg DAILY QING Administration Protocol Docusate Sodium 100 mg 06/22/21 01:26 Docusate Sodium 100 Mg Capsule PO DAILY PRN Constipation Enoxaparin Sodium 85 mg 06/22/21 20:00 06/24/21 09:11 Enoxaparin Sodium 100 Mg/Ml Syringe SUBCUT 85 mg Q12H QING Administration Hydrochlorothiazide 50 mg 06/22/21 09:00 06/22/21 09:47 Hydrochlorothiazide 50 Mg Tablet PO 50 mg DAILY QING Administration Cefazolin Sodium 1 gm/ Sodium 50 mls @ 100 mls/hr 06/23/21 11:00 06/24/21 11:51 Chloride IV Infused Q8H QING Infusion Risperidone 0.5 mg 06/22/21 21:00 06/23/21 20:01 Risperidone 0.5 Mg Tablet PO 0.5 mg BEDTIME QING Administration Sodium Chloride 3 ml 06/22/21 08:00 06/24/21 09:11 0.9 % Sodium Chloride Flush 3 Ml Syringe IVFLUSH 3 ml QSHIFT [facility] Administration Spironolactone 50 mg 06/22/21 09:00 06/22/21 09:46 Spironolactone 25 Mg Tablet PO 50 mg DAILY [facility] Administration Protocol Vitamin D 50 mcg 06/22/21 09:00 06/24/21 09:09 Cholecalciferol (Vitamin D3) 25 Mcg Tablet PO 50 mcg DAILY QING Administration Home Medications Medication Instructions Recorded Confirmed Last Taken Type celecoxib 200 mg capsule 200 mg PO DAILY 10/12/20 06/22/21 06/21/21 History cholecalciferol (vitamin D3) 50 50 mcg PO DAILY 10/12/20 06/22/21 06/21/21 History mcg (2,000 unit) tablet glucosamine sulfate 500 mg tablet 500 mg PO DAILY 10/12/20 06/22/21 06/21/21 History (Glucosamine) risperidone 0.5 mg tablet 0.5 mg PO BEDTIME tab 04/05/21 06/22/21 06/21/21 History rivaroxaban 20 mg tablet (Xarelto) 20 mg PO DAILY@1700 06/22/21 06/22/21 06/20/21 History Physical Exam Vital Signs: Vital Signs: Last Vital Signs Temp 97.3 F 06/24/21 12:00 Pulse 98 06/24/21 12:00 Resp 18 06/24/21 12:00 BP 126/56 L 06/24/21 12:00 Pulse Ox 95 06/24/21 12:00 Body Mass Index 33.1 Const: General: cooperative, healthy appearing and comfortable Orientation/consciousness: oriented to person, oriented to place and oriented to time Neck: Carotids: no bruits Chest: Chest palpation & inspection: normal inspection of the chest and normal palpation of entire chest wall Resp: Effort & Inspection: normal respiratory effort and able to speak in complete sentences Cardio: Rate: regular rate Heart sounds: S1 normal heart sound present and S2 normal heart sound present Peripheral pulses: Peripheral pulses 2+ thr oughout GI: Inspection: Yes normal to inspection Skin: Other: +2 edema, right lower extremity with cellulitis extending to below knee and some phlebitis in the medial aspect of the thigh. General skin exam: dry skin Neuro: General: oriented to person, oriented to place and oriented to time Extrem: General: Yes edema Right lower extremity: full ROM, normal capillary refill and edema Left lower extremity: full ROM, normal capillary refill and edema Psych: Mental Status: mental status grossly normal Results Labs Result diagrams: 06/24/21 04:33 06/23/21 06:34 Labs: Abnormal lab results 06/23/21 06/24/21 Range/Units 14:23 04:33 WBC 11.2 H (4.8-10.8) X10*3/uL RBC 3.69 L (4.20-5.50) X10*6/uL Hgb 11.4 L (12.0-16.0) g/dl Hct 33.2 L (37-47) % Vancomycin Trough 6.1 L (10.0-20.0) mcg/mL Short CBC 06/24/21 Range/Units 04:33 WBC 11.2 H (4.8-10.8) X10*3/uL Hgb 11.4 L (12.0-16.0) g/dl Hct 33.2 L (37-47) % Plt Count 235 (160-400) X10*3/uL Urine 06/22/21 Range/Units 01:28 Urine Color YELLOW Urine Appearance CLEAR Urine pH 6.0 (5.0-8.0) Ur Specific [place] 1.020 (1.005-1.025) Urine Protein TRACE (NEG-TRACE) MG/DL Urine Glucose (UA) NEG (NEG) MG/DL All other labs normal. Assessment and Plan (1) DVT (deep venous thrombosis): Qualifiers: Affected thrombotic vein of extremity: tibial Chronicity: acute DVT location: lower extremity Laterality: right Qualified Code(s): I82.441 - Acute embolism and thrombosis of right tibial vein Status: Acute In short patient has significant cellulitis and swelling of the right lower extremity. I do believe that the causative factor for this DVT. It is a below knee vessel. Would recommend formal anticoagulation. I do not believe intervention will be helpful in this situation as it is not a larger vein and will not prevent any other significant post phlebitic sequela. I have discussed this with the patient. Thank you for allowing us to assist in her care. If there are any questions or concerns please do not hesitate to contact us. Procedures Date of Service Date of Service: 06/24/21
[2021-06-24 13:15] LABS: Anion Gap 16 (12-20); Blood Urea Nitrogen 15 mg/dL (9-16); Calcium 9.1 mg/dL (8.4-10.2); Carbon Dioxide 25 mmol/L (22-29); Chloride 99 mmol/L (96-108); Creatinine Clr Calc Pharmacy 52.4; Estimated Glomerular Filt Rate 55; Glucose Random 114 mg/dL (60-115); Magnesium 1.9 mg/dL (1.6-2.6); Potassium 2.9 mmol/L (3.3-5.1); Sodium 137 mmol/L (135-145)
[2021-06-24 13:55] LABS: CA 27.29 17 U/mL (<38)
[2021-06-24 15:48] VITALS: BP 126/64; PULSE 84; RESP 16; TEMP 36.7; O2SAT 94
[2021-06-24] MEDS: risperiDONE 0.5 MG TABLET PO (19:18)
[2021-06-24 20:00] VITALS: BP 137/63; PULSE 94; RESP 16; TEMP 36.6; O2SAT 98
[2021-06-25] VITALS (7 sets, daily range): BP systolic 113–138; BP diastolic 61–76; PULSE 70–98; RESP 14–18; TEMP 35.7–37.4; O2SAT 93–97
[2021-06-25] MEDS: Acetaminophen 325 MG TABLET 650 MG PO ×4 (00:27→21:03)
[2021-06-25] MEDS: 0.9 % Sodium Chloride Flush 3 ML SYRINGE IVFLUSH ×4 (04:04→19:21)
[2021-06-25] MEDS: Digoxin 0.125 MG TABLET PO (08:21)
[2021-06-25] MEDS: Potassium Chloride Packet 20 MEQ PACKET 40 MEQ PO (08:21)
[2021-06-25] MEDS: Cholecalciferol (Vitamin D3) 25 MCG TABLET 50 MCG PO (08:21)
[2021-06-25] MEDS: Enoxaparin Sodium 100 MG/ML SYRINGE 85 MG SUBCUT ×2 (08:21→19:16)
[2021-06-25] MEDS: dilTIAZem HCL CD 120 MG CAP.ER.DEG PO (08:21)
--- NOTE | 2021-06-25 09:17 | HO.PM.IMPN ---
Subjective Subjective Date of Service: 06/25/21 <MIKAELA Garibay - Last Filed: 06/25/21 09:27> 06/25/21 <Arnold Gross MD - Last Filed: 06/25/21 10:42> Interval History: seen and examined this morning no overnight events. still having some pain in the right leg, but seems to be improving denies fever, chills <MIKAELA Garibay - Last Filed: 06/25/21 09:27> Review of Systems Review of Systems: Yes all other systems are reviewed and are negative <MIKAELA Garibay - Last Filed: 06/25/21 09:27> Constitutional Constitutional: Denies chills and Denies fever(s) <MIKAELA Garibay Last Filed: 06/25/21 09:27> Cardiovascular Cardiovascular: Denies chest pain <MIKAELA Garibay - Last Filed: 06/25/21 09:27> Respiratory Respiratory: Denies cough <MIKAELA Garibay - Last Filed: 06/25/21 09:27> Gastrointestinal Gastrointestinal: Denies abdominal pain <MIKAELA Garibay Last Filed: 06/25/21 09:27> Physical Exam Vital Signs: Vital Signs: Last Vital Signs Temp 97.1 F 06/25/21 08:00 Pulse 70 06/25/21 08:21 Resp 14 06/25/21 08:00 BP 113/61 06/25/21 08:21 Pulse Ox 97 06/25/21 08:00 Body Mass Index 33.1 <MIKAELA Garibay - Last Filed: 06/25/21 09:27> Const: Nutritional Appearance: well nourished <MIKAELA Garibay Last Filed: 06/25/21 09:27> Orientation/consciousness: patient oriented x3 <MIKAELA Garibay Last Filed: 06/25/21 09:27> HENMT: Head: Yes normocephalic and Yes atraumatic <MIKAELA Garibay Last Filed: 06/25/21 09:27> Eyes: Sclerae: sclerae normal <MIKAELA Garibay - Last Filed: 06/25/21 09:27> Resp: Effort & Inspection: normal respiratory effort and no respiratory distress <MIKAELA Garibay Last Filed: 06/25/21 09:27> Auscultation: clear to auscultation bilaterally <MIKAELA Garibay Last Filed: 06/25/21 09:27> Cardio: Rate: regular rate <MIKAELA Graibay Last Filed: 06/25/21 09:27> Rhythm: abnormal rhythm irregularly irregular <MIKAELA Garibay - Last Filed: 06/25/21 09:27> GI: Palpation (GI): Soft to palpation and nontender <MIKAELA Garibay Last Filed: 06/25/21 09:27> Skin: Other: swelling improving, still with significant erythema <MIKAELA Garibay Last Filed: 06/25/21 09:27> Neuro: General: patient oriented x3 <MIKAELA Garibay Last Filed: 06/25/21 09:27> Cranial nerves: Yes CN's II-XII intact bilaterally and Yes Bilaterally intact EOM present <MIKAELA Garibay Last Filed: 06/25/21 09:27> Objective Data Current Medications Generic Name Dose Route Start Last Admin Trade Name Freq PRN Reason Stop Dose Admin Acetaminophen 650 mg 06/22/21 01:26 06/25/21 08:20 Acetaminophen 325 Mg Tablet PO 650 mg Q6H PRN Administration Pain, Mild (Pain Scale 1-3) Digoxin 0.125 mg 06/25/21 09:00 06/25/21 08:21 Digoxin 0.125 Mg Tablet PO 0.125 mg DAILY QING Administration Diltiazem HCl 120 mg 06/23/21 11:34 06/25/21 08:21 Diltiazem Hcl Cd 120 Mg Cap.Er.Deg PO 120 mg DAILY QING Administration Protocol Docusate Sodium 100 mg 06/22/21 01:26 Docusate Sodium 100 Mg Capsule PO DAILY PRN Constipation Enoxaparin Sodium 85 mg 06/22/21 20:00 06/25/21 08:21 Enoxaparin Sodium 100 Mg/Ml Syringe SUBCUT 85 mg Q12H QING Administration Hydrochlorothiazide 50 mg 06/22/21 09:00 06/22/21 09:47 Hydrochlorothiazide 50 Mg Tablet PO 50 mg DAILY QING Administration Cefazolin Sodium 1 gm/ Sodium 50 mls @ 100 mls/hr 06/23/21 11:00 06/25/21 04:35 Chloride IV Infused Q8H QING Infusion Risperidone 0.5 mg 06/22/21 21:00 06/24/21 19:18 Risperidone 0.5 Mg Tablet PO 0.5 mg BEDTIME QING Administration Sodium Chloride 3 ml 06/22/21 08:00 06/25/21 08:21 0.9 % Sodium Chloride Flush 3 Ml Syringe IVFLUSH 3 ml QSHIFT QING Administration Spironolactone 50 mg 06/22/21 09:00 06/22/21 09:46 Spironolactone 25 Mg Tablet PO 50 mg DAILY QING Administration Protocol Vitamin D 50 mcg 06/22/21 09:00 06/25/21 08:21 Cholecalciferol (Vitamin D3) 25 Mcg Tablet PO 50 mcg DAILY QING Administration <MIKAELA Garibay - Last Filed: 06/25/21 09:27> Labs CBC & Chem 7: : 06/24/21 04:33 06/24/21 12:34 <MIKAELA Garibay - Last Filed: 06/25/21 09:27> Labs: Laboratory Results - last 24 hr 06/22/21 06/24/21 09:29 12:34 Anion Gap 16 Estim Creat Clear Calc 52.4 Estimated GFR 55 Random Glucose 114 Calcium 9.1 D Magnesium 1.9 CA 27-29 17 <MIKAELA Garibay - Last Filed: 06/25/21 09:27> Assessment and Plan (1) Hypokalemia: Status: Acute <MIKAELA Garibay - Last Filed: 06/25/21 09:27> (2) Prolonged QT interval: Status: Acute <MIKAELA Garibay - Last Filed: 06/25/21 09:27> (3) DVT (deep venous thrombosis): Status: Acute <MIKAELA Garibay - Last Filed: 06/25/21 09:27> Assessment and Plan: This is a 70-year-old female with past medical history of hypertension, AFib on Xarelto who presents to hospital with complaints of right lower extremity swelling redness and pain found to have cellulitis as well as DVT Sepsis. poa. improving secondary to Cellulitis f/u cultures Initially treated with vancomycin, changed to kefzol with good effect Acute DVT while on Xarelto (no doses missed) Anticoagulation changed to therapeutic Lovenox per Hematology recommendation recommend 2-3 months of ac with lovenox, will need outpatient follow up with hematology A. Fib rate controlled Seen by cardiology -started on lovenox -Norvasc changed to Cardizem -amio d/c -Lovenox for anticoagulation Hypok K 2.9, will replace -follow BMP Prolonged QT -amio d/c -follow HTN BP under adequate control -continue cardizem -HCTZ, aldactone on hold initially for soft bp -monitor BP closely, resume as BP allows Full Code DVT pptx - lovenox Attending-Dr. Gross <MIKAELA Garibay - Last Filed: 06/25/21 09:27> Quality Stroke Does the patient have a stroke diagnosis?: No <MIKAELA Garibay - Last Filed: 06/25/21 09:27> VTE Prior VTE?: No <MIKAELA Garibay - Last Filed: 06/25/21 09:27> VTE Risk Level:: Medical - moderate - high <MIKAELA Garibay - Last Filed: 06/25/21 09:27> VTE Device Contraindication: Treatment Not Indicated <MIKAELA Garibay Last Filed: 06/25/21 09:27> VTE Drug Contraindication: N/A - Med Ordered <MIKAELA Garibay - Last Filed: 06/25/21 09:27>
[2021-06-25 11:38] LABS: Anion Gap 15 (12-20); Blood Urea Nitrogen 13 mg/dL (9-16); Calcium 8.6 mg/dL (8.4-10.2); Carbon Dioxide 25 mmol/L (22-29); Chloride 101 mmol/L (96-108); Creatinine Clr Calc Pharmacy 51.4; Estimated Glomerular Filt Rate 53; Glucose Random 130 mg/dL (60-115); Potassium 3.3 mmol/L (3.3-5.1); Sodium 138 mmol/L (135-145)
[2021-06-25 13:47] LABS: Cardiolipin IgG Ab <2.0 GPL-U/mL; Cardiolipin IgM Ab <2.0 MPL-U/mL
[2021-06-25] MEDS: risperiDONE 0.5 MG TABLET PO (19:21)
[2021-06-26] VITALS (8 sets, daily range): BP systolic 116–151; BP diastolic 56–76; PULSE 73–97; RESP 16–19; TEMP 36–36.7; O2SAT 91–96
[2021-06-26] MEDS: Acetaminophen 325 MG TABLET 650 MG PO ×3 (04:05→19:38)
[2021-06-26 07:32] LABS: Hematocrit 34.4 % (37-47); Hemoglobin 11.6 g/dl (12.0-16.0); Mean Corpuscular HGB Conc 33.7 g/dl (31.0-35.0); Mean Corpuscular Hemoglobin 31.6 pg (27.0-33.0); Mean Corpuscular Volume 93.7 fL (80-98); Mean Platelet Volume 11.2 fL (9.4-12.3); Platelet Count 318 X10*3/uL (160-400); Red Blood Count 3.67 X10*6/uL (4.20-5.50); Red Cell Distribution Width 14.3 % (11.0-16.0); White Blood Count 10.1 X10*3/uL (4.8-10.8)
[2021-06-26 08:00] LABS: Anion Gap 16 (12-20); Blood Urea Nitrogen 13 mg/dL (9-16); Calcium 8.4 mg/dL (8.4-10.2); Carbon Dioxide 24 mmol/L (22-29); Chloride 101 mmol/L (96-108); Creatinine Clr Calc Pharmacy 62.4; Estimated Glomerular Filt Rate > 60; Glucose Random 159 mg/dL (60-115); Potassium 3.1 mmol/L (3.3-5.1); Sodium 138 mmol/L (135-145)
[2021-06-26] MEDS: 0.9 % Sodium Chloride Flush 3 ML SYRINGE IVFLUSH ×3 (08:40→19:51)
[2021-06-26] MEDS: Digoxin 0.125 MG TABLET PO (08:40)
[2021-06-26] MEDS: Cholecalciferol (Vitamin D3) 25 MCG TABLET 50 MCG PO (08:40)
[2021-06-26] MEDS: dilTIAZem HCL CD 120 MG CAP.ER.DEG PO (08:40)
[2021-06-26] MEDS: Enoxaparin Sodium 100 MG/ML SYRINGE 85 MG SUBCUT ×2 (08:40→19:39)
[2021-06-26] MEDS: Potassium Chloride Packet 20 MEQ PACKET 40 MEQ PO (09:03)
--- NOTE | 2021-06-26 10:00 | HO.PM.IMPN ---
Subjective Subjective Date of Service: 06/26/21 Interval History: seen and examined this morning feeling about the same still with leg swelling, erythema, improving slowly no sob, chest pain Review of Systems Review of Systems: Yes all other systems are reviewed and are negative Constitutional Constitutional: Denies chills and Denies fever(s) Cardiovascular Cardiovascular: Denies chest pain Respiratory Respiratory: Denies cough Gastrointestinal Gastrointestinal: Denies abdominal pain Physical Exam Vital Signs: Vital Signs: Last Vital Signs Temp 97.1 F 06/26/21 08:00 Pulse 97 06/26/21 08:40 Resp 19 06/26/21 08:00 BP 142/76 H 06/26/21 08:40 Pulse Ox 96 06/26/21 08:00 Body Mass Index 33.1 Const: General: comfortable, no acute distress, alert and awake Nutritional Appearance: well nourished Orientation/consciousness: patient oriented x3 HENMT: Head: Yes normocephalic and Yes atraumatic Eyes: Sclerae: sclerae normal Pupils: Equal, round and reactive pupils present EOM: EOMs intact bilaterally Resp: Effort & Inspection: normal respiratory effort and no respiratory distress Auscultation: clear to auscultation bilaterally Cardio: Rate: regular rate Rhythm: abnormal rhythm irregularly irregular GI: Palpation (GI): Soft to palpation and nontender Skin: Other: right lower extremity swelling improving, still with erythema from knee to foot Neuro: General: patient oriented x3 Cranial nerves: Yes CN's II-XII intact bilaterally, Yes Equal, round and reactive pupils present and Yes Bilaterally intact EOM present Objective Data Current Medications Generic Name Dose Route Start Last Admin Trade Name Manjitq PRN Reason Stop Dose Admin Acetaminophen 650 mg 06/22/21 01:26 06/26/21 04:05 Acetaminophen 325 Mg Tablet PO 650 mg Q6H PRN Administration Pain, Mild (Pain Scale 1-3) Digoxin 0.125 mg 06/25/21 09:00 06/26/21 08:40 Digoxin 0.125 Mg Tablet PO 0.125 mg DAILY QING Administration Diltiazem HCl 120 mg 06/23/21 11:34 06/26/21 08:40 Diltiazem Hcl Cd 120 Mg Cap.Er.Deg PO 120 mg DAILY QING Administration Protocol Docusate Sodium 100 mg 06/22/21 01:26 Docusate Sodium 100 Mg Capsule PO DAILY PRN Constipation Enoxaparin Sodium 85 mg 06/22/21 20:00 06/26/21 08:40 Enoxaparin Sodium 100 Mg/Ml Syringe SUBCUT 85 mg Q12H QING Administration Hydrochlorothiazide 50 mg 06/22/21 09:00 06/22/21 09:47 Hydrochlorothiazide 50 Mg Tablet PO 50 mg DAILY QING Administration Ceftriaxone Sodium 1 gm/ 50 mls @ 100 mls/hr 06/26/21 09:30 Sodium Chloride IV Q24H QING Doxycycline Hyclate 100 mg/ 250 mls @ 166.67 mls/hr 06/26/21 09:30 Sodium Chloride IV Q12H [facility] Non-Formulary Medication 4 gm 06/25/21 17:34 06/25/21 18:08 Diclofenac Sodium TOPICAL 4 gm QID PRN Administration Pain Risperidone 0.5 mg 06/22/21 21:00 06/25/21 19:21 Risperidone 0.5 Mg Tablet PO 0.5 mg BEDTIME QING Administration Sodium Chloride 3 ml 06/22/21 08:00 06/26/21 08:40 0.9 % Sodium Chloride Flush 3 Ml Syringe IVFLUSH 3 ml QSHIFT [facility] Administration Spironolactone 50 mg 06/22/21 09:00 06/22/21 09:46 Spironolactone 25 Mg Tablet PO 50 mg DAILY [facility] Administration Protocol Vitamin D 50 mcg 06/22/21 09:00 06/26/21 08:40 Cholecalciferol (Vitamin D3) 25 Mcg Tablet PO 50 mcg DAILY QING Administration Labs CBC & Chem 7: 06/26/21 06:20 06/26/21 06:20 Labs: Laboratory Results - last 24 hr 06/23/21 06/25/21 06/26/21 06:34 11:02 06:20 MCV 93.7 MCH 31.6 MCHC 33.7 RDW 14.3 Plt Count 318 D MPV 11.2 Absolute Nucleated RBC 0.000 Nucleated RBC % (auto) 0.0 Anion Gap 15 Estim Creat Clear Calc 51.4 Estimated GFR 53 Random Glucose 130 H Calcium 8.6 Anti-Cardiolipin IgG Ab <2.0 Anti-Cardiolipin IgM Ab <2.0 06/26/21 06:20 MCV MCH MCHC RDW Plt Count MPV Absolute Nucleated RBC Nucleated RBC % (auto) Anion Gap 16 Estim Creat Clear Calc 62.4 Estimated GFR > 60 Random Glucose 159 H Calcium 8.4 Anti-Cardiolipin IgG Ab Anti-Cardiolipin IgM Ab Assessment and Plan (1) Atrial fibrillation with rapid ventricular response: Status: Acute (2) Hypokalemia: Status: Acute Assessment and Plan: This is a 70-year-old female with past medical history of hypertension, AFib on Xarelto who presents to hospital with complaints of right lower extremity swelling redness and pain found to have cellulitis as well as DVT Sepsis. poa. leukocytosis resolved. secondary to Cellulitis blood cultures negative -will broaden abx coverage given persistent erythema. start ceftriaxone, doxycycline RLE Acute DVT while on Xarelto (no doses missed) Anticoagulation changed to therapeutic Lovenox per Hematology recommendation recommend 2-3 months of ac with lovenox, will need outpatient follow up with hematology A. Fib rate controlled Seen by cardiology -started on lovenox -Norvasc changed to Cardizem -amio d/c -Lovenox for anticoagulation Hypok K 3.1, will replace -follow BMP Prolonged QT -amio d/c -will repeat EKG -replace electrolytes as needed HTN BP under adequate control -continue cardizem -HCTZ, aldactone on hold initially for soft bp; BP starting to rebound will resume aldactone -monitor BP closely, resume as BP allows Full Code DVT pptx - lovenox Attending-Dr. Gross Quality Stroke Does the patient have a stroke diagnosis?: No VTE Prior VTE?: No VTE Risk Level:: Medical - moderate - high VTE Device Contraindication: Treatment Not Indicated VTE Drug Contraindication: N/A - Med Ordered
--- NOTE | 2021-06-26 10:41 | ECG_ITS ---
Test Reason : check qt Blood Pressure : / mmHG Vent. Rate : 077 BPM Atrial Rate : 326 BPM P-R Int : 000 ms QRS Dur : 094 ms QT Int : 422 ms P-R-T Axes : 000 -24 029 degrees QTc Int : 477 ms Atrial fibrillation Abnormal ECG When compared with ECG of 24-JUN-2021 12:23, No significant changes seen Referred By: Vonnie Guadalupe Electronically Signed By:ESAU LLOYD
[2021-06-26] MEDS: cefTRIAXone sodium 1 GM in 0.9 % Sodium Chloride 50 ML IV (10:48)
[2021-06-26] MEDS: Doxycycline Hyclate 100 MG in 0.9 % Sodium Chloride 250 ML 166.67 MG IV (11:24)
--- NOTE | 2021-06-26 12:35 | MHC.CM.PN ---
NURSE MARINE METEOROLOGIST NOTE ELECTRONIC MEDICAL RECORD REVIEWED PER DOCUMENTATION PATIENT WITH HISTORY OF HYPERTENSION, A-FIB ON XARELTO ,CAME WITH COMPLAINTS OF RIGHT LOWER LEG SWELLING FROM KNEE TO FOOT, REDNESS AND PAIN FOUND TO HAVE CELLULITIS AND DVT. PATIENTS ANTICOAGULATION WAS CHANGED FROM XARELTO TO SC LOVENOX PER HEMATOLOGY RECOMMENDATIONS FOR 2-3 MONTHS AND FOLLOW UP WITH HEMATOLOGY SERVICES . PATIENT WAS ALSO EVALUATED BY CARDIOLOGY HER NORVASC WAS CHANGED TO CARDIZEM, AMINO WAS STOPPED.SECONDARY TO PRO-LONGED QT, REPEAT EKG PLANNED. MONITOR ALL LABS AND VITAL SIGNS DISCHARGE PLAN HOME WITH 1.NEW REFERRAL TO THE [facility] (ASSESSMENT , DIAGNOSIS SIN/SYMPTOM MANAGEMENT ,MEDICATION RECONCILIATION WITH CHANGES IN HOME MEDICATIONS) REINFORCEMENT TEACHING FOR SC LOVENOX 2 SELF RESUMTPION OF HER HOME HEALTH/PROPAGATOR SERVICES DTR/HCP-[facility] TO TRANSPORT HEMATOLOGY SERVICES, CARDIOLOGY AND PCP FOLLOW UP
[2021-06-26] MEDS: Mineral Oil/Petrolatum,White 106 GM Tube 1 APPL TOPICAL ×2 (15:29→19:42)
[2021-06-26] MEDS: risperiDONE 0.5 MG TABLET PO (19:39)
[2021-06-26] MEDS: Doxycycline Hyclate 100 MG in 0.9 % Sodium Chloride 250 ML 166 MG IV (19:51)
[2021-06-27] MEDS: Acetaminophen 325 MG TABLET 650 MG PO ×3 (03:51→18:24)
[2021-06-27 03:56] VITALS: BP 131/65; PULSE 81; RESP 16; TEMP 36.4; O2SAT 93
[2021-06-27] MEDS: Enoxaparin Sodium 100 MG/ML SYRINGE 85 MG SUBCUT ×2 (07:39→20:03)
[2021-06-27] MEDS: 0.9 % Sodium Chloride Flush 3 ML SYRINGE IVFLUSH ×3 (07:40→20:06)
[2021-06-27 08:00] VITALS: BP 116/51; PULSE 79; RESP 18; TEMP 36.7; O2SAT 95
--- NOTE | 2021-06-27 09:04 | P.PNIM_ITS ---
Subjective Subjective Date of Service: 06/27/21 Interval History: seen and examined this AM leg pain persists denies fevers Review of Systems General - no fevers or chills Cardiovascular - no chest pain Respiratory - no shortness of breath or cough Abdominal- no abdominal pain, nausea, vomiting, diarrhea Ext - positive for swelling, redness, pain Physical Exam Vital Signs: Vital Signs: Last Vital Signs Temp 98.1 F 06/27/21 08:00 Pulse 79 06/27/21 08:00 Resp 18 06/27/21 08:00 BP 116/51 L 06/27/21 08:00 Pulse Ox 95 06/27/21 08:00 Body Mass Index 33.1 Const: General: cooperative, comfortable, no acute distress, alert and awake Nutritional Appearance: well nourished Orientation/consciousness: patient oriented x3 HENMT: Head: Yes normocephalic and Yes atraumatic Eyes: General: appearance normal, both eyes and all related structures Sclerae: sclerae normal Pupils: Equal, round and reactive pupils present EOM: EOMs intact bilaterally Resp: Effort & Inspection: normal respiratory effort, able to speak in complete sentences and no respiratory distress Auscultation: clear to auscultation bilaterally Cardio: Rate: regular rate Rhythm: abnormal rhythm irregularly irregular GI: Palpation (GI): Soft to palpation and nontender Auscultation: normal bowel sounds Skin: Other: RLE swelling improved, but erythema and tenderness persists -- from knee below +james on RLE Neuro: General: patient oriented x3 Cranial nerves: Yes CN's II-XII intact bilaterally, Yes Equal, round and reactive pupils present and Yes Bilaterally intact EOM present Cognition (Neuro): normal cognition Objective Data Current Medications Generic Name Dose Route Start Last Admin Trade Name Manjitq PRN Reason Stop Dose Admin Acetaminophen 650 mg 06/22/21 01:26 06/27/21 03:51 Acetaminophen 325 Mg Tablet PO 650 mg Q6H PRN Administration Pain, Mild (Pain Scale 1-3) Digoxin 0.125 mg 06/25/21 09:00 06/26/21 08:40 Digoxin 0.125 Mg Tablet PO 0.125 mg DAILY QING Administration Diltiazem HCl 120 mg 06/23/21 11:34 06/26/21 08:40 Diltiazem Hcl Cd 120 Mg Cap.Er.Deg PO 120 mg DAILY QING Administration Protocol Docusate Sodium 100 mg 06/22/21 01:26 Docusate Sodium 100 Mg Capsule PO DAILY PRN Constipation Enoxaparin Sodium 85 mg 06/22/21 20:00 06/27/21 07:39 Enoxaparin Sodium 100 Mg/Ml Syringe SUBCUT 85 mg Q12H QING Administration Hydrochlorothiazide 50 mg 06/22/21 09:00 06/22/21 09:47 Hydrochlorothiazide 50 Mg Tablet PO 50 mg DAILY QING Administration Ceftriaxone Sodium 1 gm/ 50 mls @ 100 mls/hr 06/26/21 09:30 06/26/21 11:23 Sodium Chloride IV Infused Q24H QING Infusion Doxycycline Hyclate 100 mg/ 250 mls @ 166.67 mls/hr 06/26/21 09:30 06/26/21 22:03 Sodium Chloride IV Infused Q12H QING Infusion Multi-Ingred Cream/Lotion/Oil/Oint 1 appl 06/26/21 13:30 06/26/21 19:42 Mineral Oil/Petrolatum,White 106 Gm Tube TOPICAL 1 appl BID QING Administration Risperidone 0.5 mg 06/22/21 21:00 06/26/21 19:39 Risperidone 0.5 Mg Tablet PO 0.5 mg BEDTIME QING Administration Sodium Chloride 3 ml 06/22/21 08:00 06/27/21 07:40 0.9 % Sodium Chloride Flush 3 Ml Syringe IVFLUSH 3 ml QSHIFT QING Administration Spironolactone 50 mg 06/22/21 09:00 06/22/21 09:46 Spironolactone 25 Mg Tablet PO 50 mg DAILY QING Administration Protocol Vitamin D 50 mcg 06/22/21 09:00 06/26/21 08:40 Cholecalciferol (Vitamin D3) 25 Mcg Tablet PO 50 mcg DAILY QING Administration Labs CBC & Chem 7: 06/26/21 06:20 06/26/21 06:20 Microbiology Microbiology Results: Microbiology 06/21/21 23:09 Blood Culture - Final Blood - Venous No growth after 5 days. 06/21/21 22:54 Blood Culture - Final Blood - Venous No growth after 5 days. Assessment and Plan (1) Sepsis: Status: Acute Assessment and Plan: This is a 70-year-old female with past medical history of hypertension, AFib on Xarelto who presents to hospital with complaints of right lower extremity swelling redness and pain found to have cellulitis as well as DVT Sepsis secondary to RLE cellulitis sepsis resolved, but RLE issues persisits received about 2 days of IV vancomcyin, followed by several days of IV kefzol; switched to rocephin/doxy - day #2 will consult ID for input RLE Acute DVT while on Xarelto (no doses missed) Anticoagulation changed to therapeutic Lovenox per Hematology recommendation recommend 2-3 months of ac with lovenox then switch to something else, will need outpatient follow up with hematology antiphosolipid antibody syndrome work up ordered and pending -- will need outpatient 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 Fib rate controlled on Cardizem (switched from norvasc), dig loaded and now on 0.125mg daily on lovenox for anticoagulation Hypok recheck today, also check Mag Prolonged QT QTc under 500 amiodarone stopped per cardiology recs HTN hctz/aldactone held due to soft bp; now aldactone resumed norvasc switched to Cardizem Full Code DVT pptx, Lovenox Quality Stroke Does the patient have a stroke diagnosis?: No VTE Prior VTE?: No VTE Risk Level:: Medical - moderate - high VTE Device Contraindication: Treatment Not Indicated VTE Drug Contraindication: N/A - Med Ordered
[2021-06-27 09:40] LABS: Anion Gap 19 (12-20); Blood Urea Nitrogen 11 mg/dL (9-16); Calcium 8.2 mg/dL (8.4-10.2); Carbon Dioxide 22 mmol/L (22-29); Chloride 101 mmol/L (96-108); Creatinine Clr Calc Pharmacy 63.9; Estimated Glomerular Filt Rate > 60; Glucose Random 119 mg/dL (60-115); Potassium 3.8 mmol/L (3.3-5.1); Sodium 138 mmol/L (135-145)
[2021-06-27] MEDS: Digoxin 0.125 MG TABLET PO (09:53)
[2021-06-27] MEDS: Spironolactone 25 MG TABLET 50 MG PO (09:53)
[2021-06-27] MEDS: dilTIAZem HCL CD 120 MG CAP.ER.DEG PO (09:54)
[2021-06-27] MEDS: Cholecalciferol (Vitamin D3) 25 MCG TABLET 50 MCG PO (09:54)
[2021-06-27] MEDS: cefTRIAXone sodium 1 GM in 0.9 % Sodium Chloride 50 ML IV (09:54)
[2021-06-27] MEDS: Doxycycline Hyclate 100 MG in 0.9 % Sodium Chloride 250 ML 166 MG IV (10:44)
[2021-06-27 11:20] VITALS: BP 117/62; PULSE 73; RESP 18; TEMP 36.7; O2SAT 93
[2021-06-27] MEDS: Mineral Oil/Petrolatum,White 106 GM Tube 1 APPL TOPICAL ×2 (12:38→20:06)
[2021-06-27 13:56] LABS: PTT (LAC) Screen 47 sec (< OR = 40)
[2021-06-27 14:01] LABS: DRVVT Confirmation NEGATIVE (NEGATIVE); Hexagonal Phase Neutralization POSITIVE (NEGATIVE); Thrombin Clotting Time 17 sec (13-19)
[2021-06-27 15:17] VITALS: BP 119/51; PULSE 75; RESP 20; TEMP 36.4; O2SAT 96
[2021-06-27] MEDS: Linezolid/D5W 600 MG/300 ML PIGGYBACK 300 MG IV (16:07)
[2021-06-27 19:48] VITALS: BP 128/75; PULSE 97; RESP 19; TEMP 36.6; O2SAT 97
[2021-06-27] MEDS: risperiDONE 0.5 MG TABLET PO (20:03)
--- NOTE | 2021-06-27 21:07 | W.PM.IDCN ---
History of Present Illness Data of Consult Service Date: 06/27/21 Requesting physician: Itz Larios Primary Care Provider: Juana Moran MD HPI Reason for consult: leg redness She presents with redness right let ,now for six days She denies injury She denies prior cellulitis She has no fever or chills Review of Systems Musculoskeletal: Comments: redness and pain right leg PMFSH Past Medical History Medical History Atrial fibrillation with rapid ventricular response HTN (hypertension) Hx of breast cancer Paroxysmal atrial fibrillation Varicose veins of bilateral lower extremities with other complications Family History Family History Father No problems noted. Mother CVD (cardiovascular disease) HTN (hypertension) Stroke Family history: reviewed and not pertinent Surgical History Surgical History History of lumpectomy of right breast Hx of appendectomy Hx of breast biopsy Hx of spinal surgery Social History Social History Household Members: None Housing: House Do you presently have visiting nurse or other home services: Yes Alcohol intake: former Patient Tobacco Use Status: Never used Tobacco service: No Current occupational status: retired [employer] Allergies Allergy/AdvReac Type Severity Reaction Status Date / Time No Known Allergies Allergy Verified 08/17/21 14:07 [No Known Allergies*] Active Medications: Current Medications Generic Name Dose Route Start Last Admin Trade Name Manjitq PRN Reason Stop Dose Admin Acetaminophen 650 mg 06/22/21 01:26 06/27/21 18:24 Acetaminophen 325 Mg Tablet PO 650 mg Q6H PRN Administration Pain, Mild (Pain Scale 1-3) Digoxin 0.125 mg 06/25/21 09:00 06/27/21 09:53 Digoxin 0.125 Mg Tablet PO 0.125 mg DAILY QING Administration Diltiazem HCl 120 mg 06/23/21 11:34 06/27/21 09:54 Diltiazem Hcl Cd 120 Mg Cap.Er.Deg PO 120 mg DAILY QING Administration Protocol Docusate Sodium 100 mg 06/22/21 01:26 Docusate Sodium 100 Mg Capsule PO DAILY PRN Constipation Enoxaparin Sodium 85 mg 06/22/21 20:00 06/27/21 20:03 Enoxaparin Sodium 100 Mg/Ml Syringe SUBCUT 85 mg Q12H QING Administration Hydrochlorothiazide 50 mg 06/22/21 09:00 06/22/21 09:47 Hydrochlorothiazide 50 Mg Tablet PO 50 mg DAILY QING Administration Linezolid 600 mg in 300 mls @ 300 mls/hr 06/27/21 15:00 06/27/21 17:26 Zyvox/D5w IV Infused Q12H QING Infusion Multi-Ingred Cream/Lotion/Oil/Oint 1 appl 06/26/21 13:30 06/27/21 20:06 Mineral Oil/Petrolatum,White 106 Gm Tube TOPICAL 1 appl BID QING Administration Risperidone 0.5 mg 06/22/21 21:00 06/27/21 20:03 Risperidone 0.5 Mg Tablet PO 0.5 mg BEDTIME QING Administration Sodium Chloride 3 ml 06/22/21 08:00 06/27/21 20:06 0.9 % Sodium Chloride Flush 3 Ml Syringe IVFLUSH 3 ml QSHIFT QING Administration Spironolactone 50 mg 06/22/21 09:00 06/27/21 09:53 Spironolactone 25 Mg Tablet PO 50 mg DAILY [facility] Administration Protocol Vitamin D 50 mcg 06/22/21 09:00 06/27/21 09:54 Cholecalciferol (Vitamin D3) 25 Mcg Tablet PO 50 mcg DAILY QING Administration Home Medications Medication Instructions Recorded Confirmed Last Taken Type celecoxib 200 mg capsule 200 mg PO DAILY 10/12/20 08/17/21 06/21/21 History cholecalciferol (vitamin D3) 50 50 mcg PO DAILY 10/12/20 08/17/21 06/21/21 History mcg (2,000 unit) tablet risperidone 0.5 mg tablet 0.5 mg PO BEDTIME tab 04/05/21 08/17/21 06/21/21 History glucosamine sulfate 750 mg tablet 750 mg PO DAILY 08/17/21 08/17/21 Unknown History omega-3 fatty acids 2,000 mg PO DAILY 08/17/21 08/17/21 Unknown History potassium chloride 20 mEq 2 tab PO DAILY 08/17/21 08/17/21 Unknown History tablet,extended release(part/cryst) (Klor-Con M) amiodarone 200 mg tablet 200 mg PO DAILY 08/18/21 08/18/21 Unknown History Physical Exam Vital Signs: Vital Signs: Last Vital Signs Temp 97.9 F 06/27/21 19:48 Pulse 97 06/27/21 19:48 Resp 19 06/27/21 19:48 BP 128/75 06/27/21 19:48 Pulse Ox 97 06/27/21 19:48 Body Mass Index 33.1 Const: General: cooperative HENMT: Head: Yes normal to inspection Mouth: Normal oral and palatal mucosa present Eyes: General: appearance normal, both eyes and all related structures Resp: Effort & Inspection: normal respiratory effort Cardio: Rate: regular rate Rhythm: regular rhythm GI: Palpation (GI): Soft to palpation and nontender Skin: General skin exam: no rashes or lesions noted Extrem: Other: right leg hot and red to below knee no tinea pedis Results Labs CBC & Chem 7: 06/29/21 06:47 06/29/21 06:47 Labs: BMP 06/27/21 08:37 Sodium 138 Potassium 3.8 D Chloride 101 Carbon Dioxide 22 BUN 11 Creatinine 0.82 Calcium 8.2 L Microbiology Microbiology Results: Microbiology 06/21/21 23:09 Blood - Venous Blood Culture - Final No growth after 5 days. 06/21/21 22:54 Blood - Venous Blood Culture - Final No growth after 5 days. Assessment and Plan (1) DVT (deep venous thrombosis): Qualifiers: Affected thrombotic vein of extremity: tibial Chronicity: acute DVT location: lower extremity Laterality: right Qualified Code(s): I82.441 - Acute embolism and thrombosis of right tibial vein Status: Acute (2) Cellulitis: Status: Acute She has possible DVT as well as cellulitis Strep or staph possibilities Suggest Change to Linezolid to cover possible toxin or high bacterial burden,one week possible (3) Sepsis: Status: Resolved
[2021-06-27 22:34] VITALS: BP 119/58; PULSE 80; RESP 16; TEMP 36.3; O2SAT 95
[2021-06-28] MEDS: Acetaminophen 325 MG TABLET 650 MG PO ×4 (01:15→21:56)
[2021-06-28] MEDS: Linezolid/D5W 600 MG/300 ML PIGGYBACK 300 MG IV ×2 (02:24→14:25)
[2021-06-28 04:00] VITALS: BP 125/64; PULSE 68; RESP 16; TEMP 36.3; O2SAT 93
[2021-06-28 06:45] LABS: Beta-2 Glycoprotein IgA <2.0 U/mL (<20.0); Beta-2 Glycoprotein IgG <2.0 U/mL (<20.0); Beta-2 Glycoprotein IgM <2.0 U/mL (<20.0)
[2021-06-28 08:00] VITALS: BP 147/71; PULSE 80; RESP 16; TEMP 36.3; O2SAT 98
--- NOTE | 2021-06-28 08:54 | MHC.CM.PN ---
UPDATES SENT TO [facility] VIA [employer]. CASE MANAGEMENT CONTINUING TO FOLLOW FOR DC PLAN.
--- NOTE | 2021-06-28 09:34 | HO.PM.IMPN ---
Subjective Subjective Date of Service: 06/28/21 Interval History: seen and examined this AM feels unchanged d/w her 2 daughter on the phone, updates given Review of Systems General - no fevers or chills Cardiovascular - no chest pain Respiratory - no shortness of breath or cough Abdominal- no abdominal pain, nausea, vomiting, diarrhea Ext - positive for swelling, redness, pain Physical Exam Vital Signs: Vital Signs: Last Vital Signs Temp 97.4 F 06/28/21 08:00 Pulse 80 06/28/21 08:00 Resp 16 06/28/21 08:00 BP 147/71 H 06/28/21 08:00 Pulse Ox 98 06/28/21 08:00 Body Mass Index 33.1 Const: General: cooperative, comfortable, no acute distress, alert and awake Nutritional Appearance: well nourished Orientation/consciousness: patient oriented x3 HENMT: Head: Yes normocephalic and Yes atraumatic Eyes: General: appearance normal, both eyes and all related structures Sclerae: sclerae normal Pupils: Equal, round and reactive pupils present EOM: EOMs intact bilaterally Resp: Effort & Inspection: normal respiratory effort, able to speak in complete sentences and no respiratory distress Auscultation: clear to auscultation bilaterally Cardio: Rate: regular rate Rhythm: abnormal rhythm irregularly irregular GI: Palpation (GI): Soft to palpation and nontender Auscultation: normal bowel sounds Skin: Other: RLE swelling improved, but erythema and tenderness persists -- from knee below +james on RLE Neuro: General: patient oriented x3 Cranial nerves: Yes CN's II-XII intact bilaterally, Yes Equal, round and reactive pupils present and Yes Bilaterally intact EOM present Cognition (Neuro): normal cognition Objective Data Current Medications Generic Name Dose Route Start Last Admin Trade Name Freq PRN Reason Stop Dose Admin Acetaminophen 650 mg 06/22/21 01:26 06/28/21 01:15 Acetaminophen 325 Mg Tablet PO 650 mg Q6H PRN Administration Pain, Mild (Pain Scale 1-3) Digoxin 0.125 mg 06/25/21 09:00 06/27/21 09:53 Digoxin 0.125 Mg Tablet PO 0.125 mg DAILY QING Administration Diltiazem HCl 120 mg 06/23/21 11:34 06/27/21 09:54 Diltiazem Hcl Cd 120 Mg Cap.Er.Deg PO 120 mg DAILY QING Administration Protocol Docusate Sodium 100 mg 06/22/21 01:26 Docusate Sodium 100 Mg Capsule PO DAILY PRN Constipation Enoxaparin Sodium 85 mg 06/22/21 20:00 06/27/21 20:03 Enoxaparin Sodium 100 Mg/Ml Syringe SUBCUT 85 mg Q12H QING Administration Hydrochlorothiazide 50 mg 06/22/21 09:00 06/22/21 09:47 Hydrochlorothiazide 50 Mg Tablet PO 50 mg DAILY QING Administration Linezolid 600 mg in 300 mls @ 300 mls/hr 06/27/21 15:00 06/28/21 04:50 Zyvox/D5w IV Infused Q12H QING Infusion Multi-Ingred Cream/Lotion/Oil/Oint 1 appl 06/26/21 13:30 06/27/21 20:06 Mineral Oil/Petrolatum,White 106 Gm Tube TOPICAL 1 appl BID QING Administration Risperidone 0.5 mg 06/22/21 21:00 06/27/21 20:03 Risperidone 0.5 Mg Tablet PO 0.5 mg BEDTIME QING Administration Sodium Chloride 3 ml 06/22/21 08:00 06/27/21 20:06 0.9 % Sodium Chloride Flush 3 Ml Syringe IVFLUSH 3 ml QSHIFT QING Administration Spironolactone 50 mg 06/22/21 09:00 06/27/21 09:53 Spironolactone 25 Mg Tablet PO 50 mg DAILY QING Administration Protocol Vitamin D 50 mcg 06/22/21 09:00 06/27/21 09:54 Cholecalciferol (Vitamin D3) 25 Mcg Tablet PO 50 mcg DAILY QING Administration Labs CBC & Chem 7: 06/26/21 06:20 06/27/21 08:37 Labs: Laboratory Results - last 24 hr 06/23/21 06/23/21 06/27/21 06:34 06:34 08:37 LA PTT Screen 47 H LA Thrombin Time 17 dRVV Screen 46 H dRVVT Confirm Interp NEGATIVE dRVVT Mixing Study TNP dRVVT Mix Interpret TNP Hexagon Phase Neutraliz POSITIVE A Lupus Anticoag Interp SEE NOTE Anion Gap 19 Estim Creat Clear Calc 63.9 Estimated GFR > 60 Random Glucose 119 H Calcium 8.2 L Magnesium 2.0 Beta-2-GPI IgG Ab <2.0 Beta-2-GPI IgA Ab <2.0 Beta-2-GPI IgM Ab <2.0 Assessment and Plan (1) Cellulitis: Status: Acute Assessment and Plan: This is a 70-year-old female with past medical history of hypertension, AFib on Xarelto who presents to hospital with complaints of right lower extremity swelling redness and pain found to have cellulitis as well as DVT Sepsis secondary to RLE cellulitis sepsis resolved, but RLE issues persisits received about 2 days of IV vancomcyin, followed by several days of IV kefzol; switched to zyvox -- day #2 ID input appreciated RLE Acute DVT while on Xarelto (no doses missed) Anticoagulation changed to therapeutic Lovenox per Hematology recommendation recommend 2-3 months of ac with lovenox then switch to something else, will need outpatient follow up with hematology antiphosolipid antibody syndrome work up ordered and pending -- will need 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 Fib rate controlled on Cardizem (switched from norvasc), dig loaded and now on 0.125mg daily on lovenox for anticoagulation Hypok recheck today, also check Mag Prolonged QT QTc under 500 amiodarone stopped per cardiology recs HTN hctz/aldactone held due to soft bp; now aldactone resumed norvasc switched to Cardizem Full Code DVT pptx, Lovenox Quality Stroke Does the patient have a stroke diagnosis?: No VTE Prior VTE?: No VTE Risk Level:: Medical - moderate - high VTE Device Contraindication: Treatment Not Indicated VTE Drug Contraindication: N/A - Med Ordered
[2021-06-28] MEDS: Cholecalciferol (Vitamin D3) 25 MCG TABLET 50 MCG PO (09:57)
[2021-06-28] MEDS: dilTIAZem HCL CD 120 MG CAP.ER.DEG PO (09:57)
[2021-06-28] MEDS: Enoxaparin Sodium 100 MG/ML SYRINGE 85 MG SUBCUT ×2 (09:58→20:06)
[2021-06-28] MEDS: Spironolactone 25 MG TABLET 50 MG PO (09:58)
[2021-06-28] MEDS: Digoxin 0.125 MG TABLET PO (09:58)
--- NOTE | 2021-06-28 09:58 | MHC.CM.PN ---
[facility] WILL NOT BE ABLE TO OFFER SERVICES AT [place], THE PATIENT WILL BE STAYING IN [facility] AT HER DAUGHTER'S HOME. REFERRAL PLACED TO [facility].
[2021-06-28] MEDS: 0.9 % Sodium Chloride Flush 3 ML SYRINGE IVFLUSH ×3 (09:59→20:04)
[2021-06-28] MEDS: Mineral Oil/Petrolatum,White 106 GM Tube 1 APPL TOPICAL ×2 (10:12→20:03)
--- NOTE | 2021-06-28 11:49 | MHC.CM.PN ---
[facility] NOT RESPONDING TO REQUEST. [facility]FERR[facility].
[2021-06-28 11:50] VITALS: BP 119/57; PULSE 73; RESP 17; TEMP 36.4; O2SAT 99
--- NOTE | 2021-06-28 12:56 | MHC.CM.PN ---
[facility] WILLING TO OFFER SERVICES. PATIENT WILL SEND ONE WEEK IN [place] @ [address] WITH DAUGHTER TOVA ([phone]) PRIOR TO RETURNING HOME ON [facility] IN [place]. CASE MANAGEMENT FOLLOWING. NO PLAN FOR DC ON IV ABX
[2021-06-28 15:54] VITALS: BP 139/65; PULSE 79; RESP 18; TEMP 36.1; O2SAT 93
[2021-06-28 19:36] VITALS: BP 133/64; PULSE 88; RESP 18; TEMP 36.3; O2SAT 96
[2021-06-28] MEDS: risperiDONE 0.5 MG TABLET PO (20:03)
[2021-06-28] MEDS: Betamethasone Dip Aug 0.05% Cr 15 GM TUBE 1 APPL TOPICAL (20:03)
[2021-06-28 23:36] VITALS: BP 112/54; PULSE 72; RESP 18; TEMP 36.1; O2SAT 94
[2021-06-29] MEDS: Linezolid/D5W 600 MG/300 ML PIGGYBACK 300 MG IV ×2 (02:48→14:47)
[2021-06-29 03:52] VITALS: BP 116/57; PULSE 66; RESP 18; TEMP 35.8; O2SAT 92
[2021-06-29] MEDS: Acetaminophen 325 MG TABLET 650 MG PO ×4 (03:56→23:36)
[2021-06-29] MEDS: oxyCODONE HCl Immed Release 5 MG TABLET PO ×4 (04:27→20:09)
[2021-06-29 07:23] LABS: Hematocrit 30.9 % (37-47); Hemoglobin 10.2 g/dl (12.0-16.0); Mean Corpuscular Hemoglobin 30.6 pg (27.0-33.0); Mean Corpuscular Volume 92.8 fL (80-98); Mean Platelet Volume 11.1 fL (9.4-12.3); Platelet Count 395 X10*3/uL (160-400); Red Blood Count 3.33 X10*6/uL (4.20-5.50); Red Cell Distribution Width 14.5 % (11.0-16.0); White Blood Count 9.2 X10*3/uL (4.8-10.8)
[2021-06-29 07:34] VITALS: BP 123/74; PULSE 88; RESP 18; TEMP 36.2; O2SAT 93
[2021-06-29 07:44] LABS: Anion Gap 15 (12-20); Blood Urea Nitrogen 13 mg/dL (9-16); Calcium 8.2 mg/dL (8.4-10.2); Carbon Dioxide 27 mmol/L (22-29); Chloride 101 mmol/L (96-108); Estimated Glomerular Filt Rate > 60; Glucose Random 114 mg/dL (60-115); Potassium 3.5 mmol/L (3.3-5.1); Sodium 139 mmol/L (135-145)
[2021-06-29] MEDS: dilTIAZem HCL CD 120 MG CAP.ER.DEG PO (08:52)
[2021-06-29] MEDS: Cholecalciferol (Vitamin D3) 25 MCG TABLET 50 MCG PO (08:52)
[2021-06-29] MEDS: Enoxaparin Sodium 100 MG/ML SYRINGE 85 MG SUBCUT ×2 (08:52→20:06)
[2021-06-29] MEDS: Spironolactone 25 MG TABLET 50 MG PO (08:53)
[2021-06-29] MEDS: Digoxin 0.125 MG TABLET PO (08:53)
[2021-06-29] MEDS: Mineral Oil/Petrolatum,White 106 GM Tube 1 APPL TOPICAL (08:53)
[2021-06-29] MEDS: 0.9 % Sodium Chloride Flush 3 ML SYRINGE IVFLUSH ×2 (08:53→16:28)
--- NOTE | 2021-06-29 09:38 | P.PNIM_ITS ---
Subjective Subjective Date of Service: 06/29/21 Interval History: seen and examined reports pain which did improve with oxycodone denies fevers or chills Review of Systems General - no fevers or chills Cardiovascular - no chest pain Respiratory - no shortness of breath or cough Abdominal- no abdominal pain, nausea, vomiting, diarrhea Physical Exam Vital Signs: Vital Signs: Last Vital Signs Temp 97.1 F 06/29/21 07:34 Pulse 88 06/29/21 07:34 Resp 18 06/29/21 07:34 BP 123/74 06/29/21 07:34 Pulse Ox 93 06/29/21 07:34 Body Mass Index 33.1 Const: General: cooperative, comfortable, no acute distress, alert and awake Nutritional Appearance: well nourished Orientation/consciousness: patient oriented x3 HENMT: Head: Yes normocephalic and Yes atraumatic Eyes: General: appearance normal, both eyes and all related structures Sclerae: sclerae normal Pupils: Equal, round and reactive pupils present EOM: EOMs intact bilaterally Resp: Effort & Inspection: normal respiratory effort, able to speak in complete sentences and no respiratory distress Auscultation: clear to auscultation bilaterally Cardio: Rate: regular rate Rhythm: abnormal rhythm irregularly irregular GI: Palpation (GI): Soft to palpation and nontender Auscultation: normal bowel sounds Skin: Other: Erythema slowly improving Neuro: General: patient oriented x3 Cranial nerves: Yes CN's II-XII intact bilaterally, Yes Equal, round and reactive pupils present and Yes Bilaterally intact EOM present Cognition (Neuro): normal cognition Objective Data Current Medications Generic Name Dose Route Start Last Admin Trade Name Jon PRN Reason Stop Dose Admin Acetaminophen 650 mg 06/22/21 01:26 06/29/21 03:56 Acetaminophen 325 Mg Tablet PO 650 mg Q6H PRN Administration Pain, Mild (Pain Scale 1-3) Betamethasone Dipropion Augmented 1 appl 06/28/21 21:00 06/29/21 09:26 Betamethasone Dip Aug 0.05% Cr 15 Gm Tube TOPICAL Not Given BID [facility] Protocol Digoxin 0.125 mg 06/25/21 09:00 06/29/21 08:53 Digoxin 0.125 Mg Tablet PO 0.125 mg DAILY QING Administration Diltiazem HCl 120 mg 06/23/21 11:34 06/29/21 08:52 Diltiazem Hcl Cd 120 Mg Cap.Er.Deg PO 120 mg DAILY QING Administration Protocol Docusate Sodium 100 mg 06/22/21 01:26 Docusate Sodium 100 Mg Capsule PO DAILY PRN Constipation Enoxaparin Sodium 85 mg 06/22/21 20:00 06/29/21 08:52 Enoxaparin Sodium 100 Mg/Ml Syringe SUBCUT 85 mg Q12H QING Administration Hydrochlorothiazide 50 mg 06/22/21 09:00 06/22/21 09:47 Hydrochlorothiazide 50 Mg Tablet PO 50 mg DAILY QING Administration Linezolid 600 mg in 300 mls @ 300 mls/hr 06/27/21 15:00 06/29/21 04:16 Zyvox/D5w IV Infused Q12H QING Infusion Multi-Ingred Cream/Lotion/Oil/Oint 1 appl 06/26/21 13:30 06/29/21 08:53 Mineral Oil/Petrolatum,White 106 Gm Tube TOPICAL 1 appl BID QING Administration Oxycodone HCl 5 mg 06/29/21 09:34 Oxycodone Hcl Immed Release 5 Mg Tablet PO Q4H PRN Pain, Severe (Pain Scale 7-10) Risperidone 0.5 mg 06/22/21 21:00 06/28/21 20:03 Risperidone 0.5 Mg Tablet PO 0.5 mg BEDTIME QING Administration Sodium Chloride 3 ml 06/22/21 08:00 06/29/21 08:53 0.9 % Sodium Chloride Flush 3 Ml Syringe IVFLUSH 3 ml QSHIFT QING Administration Spironolactone 50 mg 06/22/21 09:00 06/29/21 08:53 Spironolactone 25 Mg Tablet PO 50 mg DAILY [facility] Administration Protocol Vitamin D 50 mcg 06/22/21 09:00 06/29/21 08:52 Cholecalciferol (Vitamin D3) 25 Mcg Tablet PO 50 mcg DAILY QING Administration Labs CBC & Chem 7: 06/29/21 06:47 06/29/21 06:47 Labs: Laboratory Results - last 24 hr 06/29/21 06/29/21 06:47 06:47 MCV 92.8 MCH 30.6 MCHC 33.0 RDW 14.5 Plt Count 395 MPV 11.1 Absolute Nucleated RBC 0.000 Nucleated RBC % (auto) 0.0 Anion Gap 15 Estim Creat Clear Calc 70.0 Estimated GFR > 60 Random Glucose 114 Calcium 8.2 L Assessment and Plan (1) Cellulitis: Status: Acute Assessment and Plan: This is a 70-year-old female with past medical history of hypertension, AFib on Xarelto who presents to hospital with complaints of right lower extremity swelling redness and pain found to have cellulitis as well as DVT Sepsis secondary to RLE cellulitis sepsis resolved, but RLE issues persisits received about 2 days of IV vancomcyin, followed by several days of IV kefzol; switched to zyvox -- day #3 ID input appreciated RLE Acute DVT while on Xarelto (no doses missed) Anticoagulation changed to therapeutic Lovenox per Hematology recommendation recommend 2-3 months of ac with lovenox then switch to something else, will need outpatient follow up with hematology antiphosolipid antibody syndrome work up ordered (and ? positive) -- d/w Dr. Suazo, will need repeat testing in a few months --> she recommends coumadin, but in light of her up coming procedures as outpatient, will continue with lovenox as it will be easier to manage evaluated by vascular surg -- no need for surgical intervention at this time A. Fib rate controlled on Cardizem (switched from norvasc), dig loaded and now on 0.125mg daily on lovenox for anticoagulation Hypok recheck today, also check Mag Prolonged QT QTc under 500 amiodarone stopped per cardiology recs HTN hctz/aldactone held due to soft bp; now aldactone resumed norvasc switched to Cardizem Full Code DVT pptx, Lovenox dispo: likely home next 1-2 days Quality Stroke Does the patient have a stroke diagnosis?: No VTE Prior VTE?: No VTE Risk Level:: Medical - moderate - high VTE Device Contraindication: Treatment Not Indicated VTE Drug Contraindication: N/A - Med Ordered
[2021-06-29 11:49] VITALS: BP 126/47; PULSE 83; RESP 20; TEMP 36.2; O2SAT 94
--- NOTE | 2021-06-29 14:38 | MHC.CM.PN ---
PLAN IS ONE MORE DAY OF ABX, AND DC TO HOME TOMORROW (05/30/21) WITH [facility]. IMM 06/29 IN CHART.
[2021-06-29 15:57] VITALS: BP 126/62; PULSE 80; RESP 20; TEMP 36.4; O2SAT 95
[2021-06-29 19:29] VITALS: BP 156/64; PULSE 90; RESP 18; TEMP 36.4; O2SAT 76
[2021-06-29] MEDS: risperiDONE 0.5 MG TABLET PO (20:06)
[2021-06-29 23:53] VITALS: BP 147/60; PULSE 74; RESP 18; TEMP 36.3; O2SAT 98
[2021-06-30] VITALS (7 sets, daily range): BP systolic 117–143; BP diastolic 47–66; PULSE 73–103; RESP 16–18; TEMP 36.2–36.9; O2SAT 90–97
[2021-06-30] MEDS: Linezolid/D5W 600 MG/300 ML PIGGYBACK 300 MG IV ×2 (02:50→14:20)
[2021-06-30] MEDS: oxyCODONE HCl Immed Release 5 MG TABLET PO ×3 (02:54→14:21)
[2021-06-30] MEDS: Acetaminophen 325 MG TABLET 650 MG PO ×2 (04:59→20:37)
[2021-06-30] MEDS: dilTIAZem HCL CD 120 MG CAP.ER.DEG PO (07:40)
[2021-06-30] MEDS: Digoxin 0.125 MG TABLET PO (07:40)
[2021-06-30] MEDS: Spironolactone 25 MG TABLET 50 MG PO (07:40)
[2021-06-30] MEDS: Enoxaparin Sodium 100 MG/ML SYRINGE 85 MG SUBCUT ×2 (07:40→20:31)
[2021-06-30] MEDS: Cholecalciferol (Vitamin D3) 25 MCG TABLET 50 MCG PO (07:40)
[2021-06-30] MEDS: 0.9 % Sodium Chloride Flush 3 ML SYRINGE IVFLUSH ×3 (07:41→20:32)
--- NOTE | 2021-06-30 08:54 | P.PNIM_ITS ---
Subjective Subjective Date of Service: 06/30/21 Interval History: seen and examined no new complaints Review of Systems General - no fevers or chills Cardiovascular - no chest pain Respiratory - no shortness of breath or cough Abdominal- no abdominal pain, nausea, vomiting, diarrhea Constitutional Constitutional: Reports as per HPI, Reports no additional constitutional complai nts, Denies chills and Denies fever(s) ENT Ears, Nose, Mouth, and Throat: Reports system reviewed and no additional complaints, except as documented Cardiovascular Cardiovascular: Reports as per HPI, Reports no additional cardiovascular complaints, Denies acrocyanosis, Denies cool extremities, Denies painful fingertips, Denies chest pain, Denies chest pain at rest, Denies chest pain with activity, Denies diaphoresis, Denies syncope, Denies irregular heart rhythm, Denies claudication, Denies leg edema, Denies lightheadedness, Denies palpitations and Denies dyspnea Respiratory Respiratory: Reports no additional respiratory complaints, Denies chest congestion, Denies cough and Denies dyspnea Gastrointestinal Gastrointestinal: Reports no additional gastrointestinal complaints and Denies abdominal pain Musculoskeletal Musculoskeletal: Denies abnormal gait and Reports arthralgias Integumentary/Breasts Skin/Breast: Reports no additional skin complaints, Reports pruritus and Denies wounds Neurologic Neurologic: Reports system reviewed and no additional complaints, except as documented, Denies abnormal gait and Denies syncope Psychiatric Psychiatric: Denies no additional psychiatric complaints Endocrine Endocrine: Denies palpitations Physical Exam Vital Signs: Vital Signs: Last Vital Signs Temp 97.8 F 06/30/21 07:50 Pulse 103 H 06/30/21 07:50 Resp 18 06/30/21 07:50 BP 131/62 06/30/21 07:50 Pulse Ox 96 06/30/21 07:50 Body Mass Index 33.1 Const: General: cooperative, comfortable, no acute distress, alert and awake Nutritional Appearance: well nourished Orientation/consciousness: patient oriented x3 HENMT: Head: Yes normocephalic and Yes atraumatic Eyes: General: appearance normal, both eyes and all related structures Sclerae: sclerae normal Pupils: Equal, round and reactive pupils present EOM: EOMs intact bilaterally Resp: Effort & Inspection: normal respiratory effort, able to speak in complete sentences and no respiratory distress Auscultation: clear to auscultation bilaterally Cardio: Rate: regular rate Rhythm: abnormal rhythm irregularly irregular GI: Palpation (GI): Soft to palpation and nontender Auscultation: normal bowel sounds Skin: Other: RLE erythema continues to improve Neuro: General: patient oriented x3 Cranial nerves: Yes CN's II-XII intact bilaterally, Yes Equal, round and reactive pupils present and Yes Bilaterally intact EOM present Cognition (Neuro): normal cognition Objective Data Current Medications Generic Name Dose Route Start Last Admin Trade Name Freq PRN Reason Stop Dose Admin Acetaminophen 650 mg 06/22/21 01:26 06/30/21 04:59 Acetaminophen 325 Mg Tablet PO 650 mg Q6H PRN Administration Pain, Mild (Pain Scale 1-3) Betamethasone Dipropion Augmented 1 appl 06/28/21 21:00 06/29/21 20:10 Betamethasone Dip Aug 0.05% Cr 15 Gm Tube TOPICAL Not Given BID [facility] Protocol Digoxin 0.125 mg 06/25/21 09:00 06/30/21 07:40 Digoxin 0.125 Mg Tablet PO 0.125 mg DAILY QING Administration Diltiazem HCl 120 mg 06/23/21 11:34 06/30/21 07:40 Diltiazem Hcl Cd 120 Mg Cap.Er.Deg PO 120 mg DAILY QING Administration Protocol Docusate Sodium 100 mg 06/22/21 01:26 Docusate Sodium 100 Mg Capsule PO DAILY PRN Constipation Enoxaparin Sodium 85 mg 06/22/21 20:00 06/30/21 07:40 Enoxaparin Sodium 100 Mg/Ml Syringe SUBCUT 85 mg Q12H QING Administration Hydrochlorothiazide 50 mg 06/22/21 09:00 06/22/21 09:47 Hydrochlorothiazide 50 Mg Tablet PO 50 mg DAILY QING Administration Linezolid 600 mg in 300 mls @ 300 mls/hr 06/27/21 15:00 06/30/21 03:47 Zyvox/D5w IV Infused Q12H [facility] Infusion Multi-Ingred Cream/Lotion/Oil/Oint 1 appl 06/26/21 13:30 06/29/21 20:11 Mineral Oil/Petrolatum,White 106 Gm Tube TOPICAL Not Given BID QING Oxycodone HCl 5 mg 06/29/21 09:34 06/30/21 07:39 Oxycodone Hcl Immed Release 5 Mg Tablet PO 5 mg Q4H PRN Administration Pain, Severe (Pain Scale 7-10) Risperidone 0.5 mg 06/22/21 21:00 06/29/21 20:06 Risperidone 0.5 Mg Tablet PO 0.5 mg BEDTIME QING Administration Sodium Chloride 3 ml 06/22/21 08:00 06/30/21 07:41 0.9 % Sodium Chloride Flush 3 Ml Syringe IVFLUSH 3 ml QSHIFT QING Administration Spironolactone 50 mg 06/22/21 09:00 06/30/21 07:40 Spironolactone 25 Mg Tablet PO 50 mg DAILY QING Administration Protocol Vitamin D 50 mcg 06/22/21 09:00 06/30/21 07:40 Cholecalciferol (Vitamin D3) 25 Mcg Tablet PO 50 mcg DAILY QING Administration Labs CBC & Chem 7: 06/29/21 06:47 06/29/21 06:47 Assessment and Plan (1) Cellulitis: Status: Acute Assessment and Plan: This is a 70-year-old female with past medical history of hypertension, AFib on Xarelto who presents to hospital with complaints of right lower extremity swelling redness and pain found to have cellulitis as well as DVT Sepsis secondary to RLE cellulitis sepsis resolved cellulitis slowly improving on zyvox received about 2 days of IV vancomcyin, followed by several days of IV kefzol; switched to zyvox -- day #4 ID input appreciated RLE Acute DVT while on Xarelto (no doses missed) Anticoagulation changed to therapeutic Lovenox per Hematology recommendation recommend 2-3 months of ac with lovenox then switch to something else, will need outpatient follow up with hematology antiphosolipid antibody syndrome work up ordered (and ? positive) -- d/w Dr. Suazo, will need repeat testing in a few months --> she recommends coumadin, but in light of her up coming procedures as outpatient, will continue with lo venox as it will be easier to manage evaluated by vascular surg -- no need for surgical intervention at this time A. Fib rate controlled on Cardizem (switched from norvasc), dig loaded and now on 0.125mg daily on lovenox for anticoagulation Hypok recheck today, also check Mag Prolonged QT QTc under 500 amiodarone stopped per cardiology recs HTN hctz/aldactone held due to soft bp; now aldactone resumed norvasc switched to Cardizem Full Code DVT pptx, Lovenox dispo: hopefully home by tomorrow Quality Stroke Does the patient have a stroke diagnosis?: No VTE Prior VTE?: No VTE Risk Level:: Medical - moderate - high VTE Device Contraindication: Treatment Not Indicated VTE Drug Contraindication: N/A - Med Ordered
[2021-06-30] MEDS: Mineral Oil/Petrolatum,White 106 GM Tube 1 APPL TOPICAL ×2 (10:25→20:31)
[2021-06-30] MEDS: Betamethasone Dip Aug 0.05% Cr 15 GM TUBE 1 APPL TOPICAL (20:31)
[2021-06-30] MEDS: risperiDONE 0.5 MG TABLET PO (20:31)
[2021-07-01] MEDS: Linezolid/D5W 600 MG/300 ML PIGGYBACK 300 MG IV (02:27)
[2021-07-01] MEDS: Acetaminophen 325 MG TABLET 650 MG PO ×3 (02:30→14:16)
[2021-07-01 03:26] VITALS: BP 131/56; PULSE 76; RESP 16; TEMP 36.6; O2SAT 91
[2021-07-01] MEDS: Cholecalciferol (Vitamin D3) 25 MCG TABLET 50 MCG PO (07:37)
[2021-07-01] MEDS: Digoxin 0.125 MG TABLET PO (07:37)
[2021-07-01] MEDS: dilTIAZem HCL CD 120 MG CAP.ER.DEG PO (07:37)
[2021-07-01] MEDS: Spironolactone 25 MG TABLET 50 MG PO (07:38)
[2021-07-01] MEDS: oxyCODONE HCl Immed Release 5 MG TABLET PO ×2 (07:38→14:16)
[2021-07-01] MEDS: Enoxaparin Sodium 100 MG/ML SYRINGE 85 MG SUBCUT (07:39)
[2021-07-01] MEDS: 0.9 % Sodium Chloride Flush 3 ML SYRINGE IVFLUSH (07:39)
[2021-07-01] MEDS: Mineral Oil/Petrolatum,White 106 GM Tube 1 APPL TOPICAL (07:40)
[2021-07-01 08:41] VITALS: BP 137/57; PULSE 83; RESP 16; TEMP 36.8; O2SAT 94
--- NOTE | 2021-07-01 09:27 | PM.DS ---
DS: Providers Provider Date of Service: 07/01/21 Date of admission: 06/22/21 00:52 Primary care physician: Juana Moran MD Consults: 06/22/21 01:26 Consult to Hematology / Oncology Routine Consulting Provider: Daksha Suazo Reason for consultation: DVT,failed anticoagulation Has provider been notified: No 06/22/21 14:41 Consult to Cardiology Routine Consulting Provider: [facility] [place] [facility] Reason for consultation: Helene. nathen Loyolatined in sinus on amio, ablation next month 06/23/21 15:18 Consult to Vascular Surgery Routine Consulting Provider: Eliud Greer Reason for consultation: dvt ? thrombectomy Has provider been notified: No 06/27/21 08:12 Consult to Infectious Diseases Routine Consulting Provider: Cece Rizzo Reason for consultation: persistent cellulitis DS: Diagnosis Discharge Diagnosis (1) Cellulitis: Status: Acute DS: Medications Discharge Medications Home Medications: Home Medications Medication Instructions Recorded Confirmed celecoxib 200 mg capsule 200 mg PO DAILY 10/12/20 06/22/21 cholecalciferol (vitamin D3) 50 50 mcg PO DAILY 10/12/20 06/22/21 mcg (2,000 unit) tablet glucosamine sulfate 500 mg tablet 500 mg PO DAILY 10/12/20 06/22/21 (Glucosamine) risperidone 0.5 mg tablet 0.5 mg PO BEDTIME tab 04/05/21 06/22/21 diclofenac sodium 1 % topical gel 4 g TOPICAL QID PRN 06/25/21 06/25/21 Previous Rx's Medication Instructions Recorded spironolactone 50 mg tablet 50 mg PO DAILY #90 tab 01/11/21 chlorthalidone 50 mg tablet 50 mg PO QAM #90 tab 03/25/21 betamethasone, augmented 0.05 % 1 appl TOPICAL BID #50 g 07/01/21 topical cream digoxin 125 mcg (0.125 mg) tablet 0.125 mg PO DAILY #30 tab 07/01/21 diltiazem HCl 120 mg 120 mg PO DAILY #30 cap 07/01/21 capsule,extended release 24 hr (Cardizem CD) enoxaparin 100 mg/mL subcutaneous 85 mg SUBCUT Q12H 30 Days #51 ml 07/01/21 syringe (Lovenox) linezolid 600 mg tablet (Zyvox) 600 mg PO BID #6 tab 07/01/21 oxycodone 5 mg tablet 5 mg PO Q8H PRN #30 tab 07/01/21 DS: Summary Hospital Course Hospital Course: Final Discharge Diagnosis: 1. Sepsis 2. Cellulitis 3. Acute DVT 4. AFib with RVR 5. Prolonged QT 6. Hypokalemia 7. Hypertension HPI from admission H&P: 70-year-old female with past medical history of HTN, breast cancer 2 years ago status post radiation according to the daughter, paroxysmal AFib on Xarelto, and varicose veins who presents to the hospital with complaints of right lower extremity swelling, redness, and pain for the past 1 day.? Patient speaks [place] and therefore history is obtained with the help of her daughter at bedside According to the daughter is interpreting for the mother the pain is 9/10, burning, localized to the right lower part of the lower extremity, she had a fever at home of 39? C, she took Tylenol with improvement of her temperature, denies any shortness of breath, no chest pain, no cough, no abdominal pain nausea or vomiting, no diarrhea constipation, no urinary symptoms.? No numbness tingling or weakness. Review of systems otherwise negative except as mentioned above Hospital Course: Patient presented with right lower extremity pain, redness and swelling. She was diagnosed with the acute DVT while on Xarelto. She also met sepsis criteria and was initially started on IV vancomycin. Patient's cellulitis remained difficult to treat and ultimately she was evaluated by Infectious Disease who recommended IV Zyvox which she has completed for 4 days in the hospital with significant improvement in her right lower extremity swelling. She will be discharged on 3 more days of oral Zyvox. In regards to her acute DVT, she was evaluated by Hematology who recommended using heparin products. She was initially on IV heparin drip and has been transitioned to subcu Lovenox which she will be discharged on. She did have antiphospholipid antibody syndrome workup completed which was positive. She was also evaluated by vascular surgery and no surgical indication was recommended. She likely will need to be on Coumadin, however due to her upcoming procedures (Ablation and R Knee Surgery) this was not initiated. Finally, patient was noted to be in AFib with RVR as well in the hospital. She was typically maintained in sinus rhythm on amiodarone. Cardiology was consulted and recommended discontinuation of amiodarone and to instead use digoxin plus Cardizem which again she will be discharged on. Patient did have a repeat right lower extremity Doppler checked on the day before discharge which showed no blood clot. Time Spent with Patient Time attestation: Total time spent providing and/or coordinating discharge services: Discharge coordination time: Greater than 30 minutes Quality: Stroke Does the patient have a stroke diagnosis?: No Physical Exam Vital Signs: Vital Signs: Last Vital Signs Temp 98.2 F 07/01/21 08:41 Pulse 83 07/01/21 08:41 Resp 16 07/01/21 08:41 BP 137/57 L 07/01/21 08:41 Pulse Ox 94 07/01/21 08:41 Body Mass Index 33.1 Const: General: cooperative, comfortable, no acute distress, alert and awake Nutritional Appearance: well nourished Orientation/consciousness: patient oriented x3 HENMT: Head: Yes normocephalic and Yes atraumatic Eyes: General: appearance normal, both eyes and all related structures Sclerae: sclerae normal Pupils: Equal, round and reactive pupils present EOM: EOMs intact bilaterally Resp: Effort & Inspection: normal respiratory effort, able to speak in complete sentences and no respiratory distress Auscultation: clear to auscultation bilaterally Cardio: Rate: regular rate Rhythm: abnormal rhythm irregularly irregular GI: Palpation (GI): Soft to palpation and nontender Auscultation: normal bowel sounds Skin: Other: RLE erythema continues to improve Neuro: General: patient oriented x3 Cranial nerves: Yes CN's II-XII intact bilaterally, Yes Equal, round and reactive pupils present and Yes Bilaterally intact EOM present Cognition (Neuro): normal cognition Discharge Plan Discharge Patient Disposition: Home Health Service Discharge Diagnosis: Cellulitis / DVT Referrals: Juana Moran MD [Primary Care Provider] - 1 Week Discharge Medications: New diltiazem HCl [Cardizem CD] 120 mg Capsule,Extended Release 24hr 120 mg PO DAILY Qty: 30 RF: 0 digoxin 125 mcg (0.125 mg) Tablet 0.125 mg PO DAILY Qty: 30 RF: 0 oxycodone 5 mg Tablet 5 mg PO Q8H PRN (Reason: Pain, Severe (Pain Scale 7-10)) Qty: 30 RF: 0 betamethasone, augmented 0.05 % Cream 1 appl topical BID Qty: 50 RF: 0 enoxaparin [Lovenox] 100 mg/mL syringe 85 mg subcut Q12H 30 Days Qty: 51 RF: 1 linezolid [Zyvox] 600 mg tablet 600 mg PO BID Qty: 6 RF: 0 Continued spironolactone 50 mg tablet 50 mg PO DAILY Qty: 90 RF: 3 chlorthalidone 50 mg tablet 50 mg PO QAM Qty: 90 RF: 1 diclofenac sodium 1 % gel 4 g topical QID PRN (Reason: Pain) RF: 0 celecoxib 200 mg capsule 200 mg PO DAILY RF: 0 cholecalciferol (vitamin D3) 50 mcg (2,000 unit) tablet 50 mcg PO DAILY RF: 0 glucosamine sulfate [Glucosamine] 500 mg tablet 500 mg PO DAILY RF: 0 risperidone 0.5 mg tablet 0.5 mg PO BEDTIME RF: 0 Discontinued amlodipine 5 mg tablet 5 mg PO DAILY Qty: 30 RF: 3 amiodarone 100 mg tablet 100 mg PO DAILY Qty: 90 RF: 1 Xarelto 20 mg tablet 20 mg PO DAILY@1700 RF: 0 Discharge Orders: Discharge Order (Routine); Ordered 07/01/21 Ordered By: Itz Larios Diet: advance to usual diet Activity on Discharge: As tolerated Stand Alone Forms: Patient Portal Discharge page Care Plan Goals: To stay healthy and out of the hospital. Health Concerns: Cellulitis DVT Plan of Treatment: Cellulitis - Take Zyvox for 3 more days DVT - Take Lovenox twice daily and follow up with your Warehouse Receiver. Belkis Fib - Do not take Amiodarone, instead take Cardizem and Digoxin Assessment: 70 yo F admitted for DVT and cellulitis.
--- NOTE | 2021-07-01 09:39 | W.MHC.F2F ---
Service Date Service Date: 07/01/21 Encounter Date of encounter: 07/01/21 Reasons for Services Reason for senior care: administration of IV, SQ, or IM injection, medication management and teach disease management MD Overseeing Care: Juana Moran Homebound: Leaving the home is medically contraindicated at this time without the asist of a device and/or another person due th the listed conditions above and below. Reason homebound: leg weakness (R Leg) Certification: Based on the above findings, I certify that this patient is confined to the home and needs intermittent senior care care, physical therapy and/or speech therapy, or continues to need occupational therapy. The patient is under my care, and I have initiated the establishment of the plan of care. The patient will be followed by a physician who will periodically review the plan of care.
--- NOTE | 2021-07-01 09:50 | MHC.CM.PN ---
CM MET W/PT REGARDING D/C, IMM REVIEWED W/PT WHO REQUESTED CM CONTACT HER DTR MILAN, CM CONTACTED MILAN AT 9:45AM [phone] TO REVIEW IMM/APPEAL PROCESS, PER MILAN SHE FEELS PT IS READY FOR D/C. DTR DID REQUEST WE WAIT UNTIL SHE ARRIVES TO GO OVER D/C PAPERWORK, PT'S NURSE IS AWARE, DTR WILL BE HERE AFTER 12:30PM WHEN SHE GETS OUT OF WORK, NSG AWARE. D/C PLAN: HOME W/RESUMP OF [employer] AND [facility], DTR MILAN FOR TRANSPORT.
[2021-07-01 12:00] VITALS: BP 144/69; PULSE 68; RESP 18; TEMP 36.9; O2SAT 99
--- NOTE | 2021-07-01 12:32 | PM.IDPN ---
Subjective Subjective Date of Service: 07/01/21 Critical Care Time (minutes): 15 Comment: She has no complaints Leg better Objective Data Labs CBC & Chem 7: 06/29/21 06:47 06/29/21 06:47 Microbiology Microbiology Results: Microbiology 06/21/21 23:09 Blood - Venous Blood Culture - Final No growth after 5 days. 06/21/21 22:54 Blood - Venous Blood Culture - Final No growth after 5 days. Physical Exam Vital Signs: Vital Signs: Last Vital Signs Temp 98.2 F 07/01/21 08:41 Pulse 83 07/01/21 08:41 Resp 16 07/01/21 08:41 BP 137/57 L 07/01/21 08:41 Pulse Ox 94 07/01/21 08:41 Body Mass Index 33.1 Const: General: cooperative Resp: Effort & Inspection: normal respiratory effort Cardio: Rate: regular rate Rhythm: regular rhythm GI: Palpation (GI): Soft to palpation and nontender Extrem: Other: decreased erythema leg Assessment and Plan Assessment and plan (1) Cellulitis: Status: Acute Assessment and Plan: Improving cellulitis Would continue Linezolid for 10 days,change to po on discharge Time Spent With Patient Time: Total time spent is greater than 50% in coordination of care (as documented) at patient's floor/unit and/or counseling patient: Time with patient: 15 - 24 minutes
== END 2021-07-01 17:01 | disposition home health service (06) | DRG 872 ==
LOC: HO.ED 06-22 00:24 → HO.EDOVER 06-22 01:32 → HO.S3 06-22 07:36
PROVIDERS: Internal Medicine; Physician Assistant; Physician Assistant Medical; Admitting Provider Internal Medicine; Emergency Provider Student in an Organized Health Care Education/Training Program; PCP Internal Medicine; Visit Provider Family Medicine
DX: A41.9 Sepsis, unspecified organism (principal); L03.115 Cellulitis of right lower limb; I82.441 Acute embolism and thrombosis of right tibial vein; I10 Essential (primary) hypertension; E87.6 Hypokalemia; E66.9 Obesity, unspecified; Z68.33 Body mass index [BMI] 33.0-33.9, adult; I48.0 Paroxysmal atrial fibrillation; R94.31 Abnormal electrocardiogram [ECG] [EKG]; Z85.3 Personal history of malignant neoplasm of breast; Z20.822 Contact with and (suspected) exposure to COVID-19; Z79.01 Long term (current) use of anticoagulants; Z79.899 Other long term (current) drug therapy
CPT/HCPCS: 36415; 71275; 74176; 80048; 80076; 80202; 81001; 82550; 83605; 83735; 83880; 84484; 85025; 85027; 85597; 85610; 85613; 85652; 85730; 86140; 86146; 86147; 86300; 87040; 87635; 93005; 93971; 96365; 96367; 96375; 99285; J0690; J0696; J1650; J2020; J2543; J3370; Q9967

== ENCOUNTER 2021-07-28 13:06 | Outpatient (REF) | payer MEDICARE, MEDICAID, SELFPAY ==
[2021-07-28 14:59] LABS: Baso%MD 0.7 %; Eos%MD 0.9 %; Hematocrit 38.4 % (37-47); Hemoglobin 12.7 g/dl (12.0-16.0); IG%MD 0.3 %; Lymph%MD 37.8 %; Mean Corpuscular HGB Conc 33.1 g/dl (31.0-35.0); Mean Corpuscular Hemoglobin 31.7 pg (27.0-33.0); Mean Corpuscular Volume 95.8 fL (80-98); Mean Platelet Volume 11.3 fL (9.4-12.3); Mono%MD 11.8 %; Neut%MD 48.5 %; Platelet Count 350 X10*3/uL (160-400); Red Blood Count 4.01 X10*6/uL (4.20-5.50); White Blood Count 7.5 X10*3/uL (4.8-10.8)
[2021-07-28 15:27] LABS: Digoxin 0.7 ng/mL (0.8-2.0)
[2021-07-28 15:28] LABS: Alanine Aminotransferase 24 U/L (0-31); Aspartate Amino Transferase 15 U/L (5-31)
[2021-07-28 15:42] LABS: Eosinophils Absolute Manual 0.4 X10*3/UL (0.0-0.8); Eosinophils Percent Manual 5 % (0-4); Lymphocytes Absolute Manual 2.3 X10*3/uL (0.6-4.8); Lymphocytes Percent Manual 31 % (20-40); Monocytes Absolute Manual 0.9 X10*3/uL (0.0-1.2); Monocytes Percent Manual 12 % (2-11); Neutrophils Percent Manual 52 % (45-73); Platelet Estimate NORMAL (NORMAL); Platelet Morphology Comment NORMAL; RBC Morphology NORMAL
[2021-07-28 15:43] LABS: Neutrophils Absolute Manual 3.9 X10*3/uL (2.2-7.9)
[2021-07-28 15:48] LABS: TSH reflex Free T4 2.25 uIU/mL (0.32-4.0)
== END 2021-07-28 13:07 | disposition home or self-care (01) ==
LOC: HO.LAB 13:06
PROVIDERS: PCP Internal Medicine; Visit Provider Nurse Practitioner Family
DX: I48.0 Paroxysmal atrial fibrillation (principal); I82.441 Acute embolism and thrombosis of right tibial vein; I10 Essential (primary) hypertension; L03.90 Cellulitis, unspecified; Z79.899 Other long term (current) drug therapy
CPT/HCPCS: 36415; 80162; 84443; 84450; 84460; 85007; 85027; 93005; 99212

== ENCOUNTER → 2021-08-17 13:59 | Outpatient (BNVA) | payer MEDICARE, MEDICAID, SELFPAY | PROVIDERS: PCP Internal Medicine; Visit Provider Nurse Practitioner Family | DX: I48.0 Paroxysmal atrial fibrillation (principal); I82.441 Acute embolism and thrombosis of right tibial vein; I10 Essential (primary) hypertension | CPT/HCPCS: 93005; 99212 ==

== ENCOUNTER → 2021-10-04 08:20 | Outpatient (BNVA) | payer MEDICARE, MEDICAID, SELFPAY | PROVIDERS: PCP Internal Medicine; Visit Provider Internal Medicine Cardiovascular Disease | DX: I48.19 Other persistent atrial fibrillation (principal); L03.90 Cellulitis, unspecified | CPT/HCPCS: 93005; 99212 ==

== ENCOUNTER → 2021-10-05 11:07 | Outpatient (REF) | payer MEDICARE, MEDICAID, SELFPAY ==
--- NOTE | 2021-10-05 11:12 | CA_ITS ---
Transthoracic Echocardiogram Patient (Last, First, Middle): Angeles Pedersen, Gender: Female Date of : 1950 Age: 70 Procedure Date: 10/05/2021 Procedure Type: Transthoracic Echocardiogram Location: OP Height: 157.48 cm Weight: 84. kg BSA: 1.85 m2 Heart Rate: bpm BP: 126 / 66 mmHg Program Director/Traffic Director: Referring MD: Grzegorz Shepherd MD Symptoms: I48.19 - Other persistent atrial fibrillation Study Quality: Fair ECG Rhythm: Atrial Fibrillation Conclusions: - The left ventricular systolic function is normal. The calculated ejection fraction is 56% by biplane method. - There is mild calcification of the aortic valve. - There is mild tricuspid valve regurgitation. Findings Left Ventricle Normal left ventricular cavity size. There is mildly increased left ventricular wall thickness. The left ventricular systolic function is normal. The calculated ejection fraction is 56% by biplane method. There is no evidence of regional wall motion abnormalities. Diastolic function is normal for age. Right Ventricle Normal right ventricular cavity size and systolic function. Atria Both atria are normal in size. Aortic Valve There is a normal trileaflet aortic valve. There is mild calcification of the aortic valve. There is no aortic valve stenosis. There is no aortic valve regurgitation. Mitral Valve The mitral valve appears normal. There is trace mitral valve regurgitation. There is no mitral valve stenosis. Pulmonic Valve The pulmonic valve was not well visualized. Tricuspid Valve Normal tricuspid valve structure. There is mild tricuspid valve regurgitation. The pulmonary artery systolic pressure is normal. Great Vessels The aortic annulus and asc aorta are normal in size. Venous The inferior vena cava is normal in size and collapses greater than 50% with inspiration. Pericardium/Pleural There is no evidence of pericardial effusion. Prior Study Comparison Changes noted compared to prior study dated: 12/25/2019. Tricuspid regurgitation less prominent. RVSP lower. Measurements 2D Linear Measurements IVSd: 1.22 0.6-0.9/0.6-1.0 cm LVIDd: 3.29 3.9-5.3/4.2-5.9 cm LVIDd Index: 1.78 2.4-3.2/2.2-3.1 cm/m2 LVIDs: 2.02 2.0-3.6 cm LVPWd: 1.21 0.7-1.1 cm Ao Root: 2.80 2.1-3.5 cm LA Diam: 4.30 2.7-3.8/3.0-4.0 cm LAIDs Index: 2.32 1.5-2.3 cm/m2 LV Mass: 157.60 67-162/88-224 g LV Mass Index: 85.19 43-95/49-115 g/m2 LVOT Diam: 2.00 3.0+(-)1.3 cm 2D Systolic Function EF 4C: 56.10 >55% EF 2C: 55.40 >55% EF BiP: 55.80 >55% Mitral Valve MV Pk E: 0.92 MV Decel Time: 136.00 E'Lateral: 14.70 E'Medial: 10.00 E/E' Med: 9.20 E/E' Lat: 6.20 PHT: 40.00 MVA PHT: 5.50 Decel [place]: 6.74 Aortic Valve AoV Pk Alfred: 1.66 AoV Mn Alfred: 1.02 AoV VTI: 0.26 AoV Pk Grad: 11.00 Aov Mn Grad: 5.00 SUNIL Cont.VTI: 2.18 LVOT LVOT Pk Alfred: 0.85 LVOT Mn Alfred: 0.59 LVOT VTI: 0.18 LVOT Pk Grad: 3.00 LVOT Mn Grad: 2.00 LVOT Diam: 2.00 LVOT Area: 3.14 Diastolic Function MV Pk E: 0.92 E'Medial: 10.00 E/E' Med: 9.20 E' Laterial: 14.70 E/E' Lat: 6.20 Tricuspid Valve TR Pk Alfred: 2.25 TR Pk Grad: 20.00 Great Vessels Aorta Ao Root-2D: 2.80 2.0-3.7 cm Ao Asc: 3.20 2.1-3.4 cm Pulmonary Valve PV Pk Alfred: 1.02 Peak PV Grad: 4.00 Updated in Other Vendor System with Status of Final Chris Tejada MD electronically signed on 10/07/2021 11:17:00 AM with status of Final
== END ==
LOC: HO.CARD 11:07
PROVIDERS: Visit Provider Internal Medicine Cardiovascular Disease
DX: I48.19 Other persistent atrial fibrillation (principal)
CPT/HCPCS: 93306

== ENCOUNTER 2021-10-12 12:30 | Day surgery (SDC) | payer MEDICARE, MEDICAID, SELFPAY ==
--- NOTE | 2021-10-11 10:59 | P.CONAN_ITS ---
Documented by User: Emmie Avelar NP 10/11/21 11:01 HPI - Anesthesia Eval Consult details Narrative: 70yo F for Cardioversion Coumadin for afib PMFSH Active Problems Active Problems: All Active Problems (Updated 10/04/21 @ 09:05 by Grzegorz Shepherd MD) Persistent atrial fibrillation (Acute) SOB (shortness of breath) on exertion (Acute) Primary osteoarthritis of left knee (Acute) DVT (deep venous thrombosis) (Acute) Cellulitis (Acute) Paroxysmal atrial fibrillation (Acute) HTN (hypertension) (Acute) Past Medical History Medical History Atrial fibrillation with rapid ventricular response HTN (hypertension) Hx of breast cancer Paroxysmal atrial fibrillation Varicose veins of bilateral lower extremities with other complications Family History Family History Father No problems noted. Mother CVD (cardiovascular disease) HTN (hypertension) Stroke Surgical History Surgical History (Updated 10/12/21 @ 13:39 by Faiza Davidson RN) History of lumpectomy of left breast Hx of appendectomy Hx of breast biopsy Hx of spinal surgery Social History Social History Household Members: None Housing: House Do you presently have visiting nurse or other home services: Yes Alcohol intake: former Patient Tobacco Use Status: Never used Tobacco Use of substances other than those prescribed or required for medical reasons: No Are you DNR?: No Advance Directives: No Advance Directives Information Provided: Yes Recently lost weight without trying: No Nutrition Risks: No Nutritional Risk service: No Current occupational status: retired Meds Allergies Allergy/AdvReac Type Severity Reaction Status Date / Time No Known Allergies Allergy Verified 08/17/21 14:07 [No Known Allergies*] Home Medications Medication Instructions Recorded Confirmed Last Taken Type celecoxib 200 mg capsule 200 mg PO DAILY 10/12/20 10/04/21 06/21/21 History cholecalciferol (vitamin D3) 50 50 mcg PO DAILY 10/12/20 10/04/21 10/12/21 History mcg (2,000 unit) tablet glucosamine sulfate 750 mg tablet 750 mg PO DAILY 08/17/21 10/04/21 Unknown History omega-3 fatty acids 2,000 mg PO DAILY 08/17/21 10/04/21 Unknown History potassium chloride 20 mEq 2 tab PO DAILY 08/17/21 10/04/21 Unknown History tablet,extended release(part/cryst) (Klor-Con M) amiodarone 200 mg tablet 200 mg PO DAILY 08/18/21 10/04/21 10/12/21 History risperidone 0.5 mg tablet 0.5 mg PO BEDTIME tab 10/04/21 10/04/21 10/12/21 History Exam Exam Date and Time: October 11, 2021 1059 Pertinent Lab Results Pertinent Lab Results: Laboratory Tests 08/22/21 08/22/21 10:27 10:27 WBC 7.4 Hgb 12.7 Hct 38.3 Plt Count 317 Sodium 138 Potassium 3.9 Chloride 103 Carbon Dioxide 26 BUN 24 H D Creatinine 1.15 Narrative Narrative: EKG 09/2021 atrial fibrillation with poor R-wave progression anterior leads most likely due to lead placement ECHO 09/2021 Conclusions: - The left ventricular systolic function is normal.? The ? calculated ejection fraction is 56% by biplane method. ? - There is mild calcification of the aortic valve. ? - There is mild tricuspid valve regurgitation.? Assessment and Plan Assessment Anesthesia Assessment: Chart Reviewed Documented by User: Solange Plata MD 10/12/21 14:34 HPI - Anesthesia Eval Consult details Narrative: 70yo F for Cardioversion Coumadin for afib. Last dose 10/11/21 Cardioversion 01/21/20 PMFSH Active Problems Active Problems: All Active Problems (Updated 10/04/21 @ 09:05 by Grzegorz Shepherd MD) Persistent atrial fibrillation (Acute) SOB (shortness of breath) on exertion (Acute) Primary osteoarthritis of left knee (Acute) DVT (deep venous thrombosis) (Acute) Cellulitis (Acute) Paroxysmal atrial fibrillation (Acute) HTN (hypertension) (Acute) S/p cardioversion 01/21/20. Past Medical History Medical History Atrial fibrillation with rapid ventricular response HTN (hypertension) Hx of breast cancer Paroxysmal atrial fibrillation Varicose veins of bilateral lower extremities with other complications Family History Family History Father No problems noted. Mother CVD (cardiovascular disease) HTN (hypertension) Stroke Family history of problems with anesthesia: No Surgical History Surgical History (Updated 10/12/21 @ 13:39 by Faiza Davidson RN) History of lumpectomy of left breast Hx of appendectomy Hx of breast biopsy Hx of spinal surgery History of Problems with Anesthesia: No Social History Social History Household Members: None Housing: House Do you presently have visiting nurse or other home services: Yes Alcohol intake: former Patient Tobacco Use Status: Never used Tobacco Use of substances other than those prescribed or required for medical reasons: No Are you DNR?: No Advance Directives: No Advance Directives Information Provided: Yes Recently lost weight without trying: No Nutrition Risks: No Nutritional Risk service: No Current occupational status: retired [employer] Allergies Allergy/AdvReac Type Severity Reaction Status Date / Time No Known Allergies Allergy Verified 08/17/21 14:07 [No Known Allergies*] Home Medications Medication Instructions Recorded Confirmed Last Taken Type celecoxib 200 mg capsule 200 mg PO DAILY 10/12/20 10/04/21 06/21/21 History cholecalciferol (vitamin D3) 50 50 mcg PO DAILY 10/12/20 10/04/21 10/12/21 History mcg (2,000 unit) tablet glucosamine sulfate 750 mg tablet 750 mg PO DAILY 08/17/21 10/04/21 Unknown History omega-3 fatty acids 2,000 mg PO DAILY 08/17/21 10/04/21 Unknown History potassium chloride 20 mEq 2 tab PO DAILY 08/17/21 10/04/21 Unknown History tablet,extended release(part/cryst) (Klor-Con M) amiodarone 200 mg tablet 200 mg PO DAILY 08/18/21 10/04/21 10/12/21 History risperidone 0.5 mg tablet 0.5 mg PO BEDTIME tab 10/04/21 10/04/21 10/12/21 History Exam Height,Weight and Vital Signs: Height 5 ft 3 in Weight 84 kg Vital Signs Temp Pulse Resp BP Pulse Ox 97.7 F 75 16 134/77 98 10/12/21 13:33 10/12/21 13:33 10/12/21 13:33 10/12/21 13:33 10/12/21 13:33 Airway Mallampati Class: II TM Dist: >3cm Neck ROM: Full Loose/Missing/Broken Teeth: No Heart: RRR Lungs: CTAB Assessment and Plan Assessment Anesthesia Assessment: Anesthesia Plan Discussed Final Anesthetic Review Family History of Problems with Anesthesia: No History of Problems with Anesthesia: No NPO: Yes ASA Class: III Final Preanesthetic Review: No Changes in Pt Med Stat, Meds/Allgs Chart Reviewed, Consent Obtained/Reviewed and Anes Risks/Benef Reviewed Patient Risk: Intermediate Procedure Risk: Intermediate Assessment/Block/Sedation in SS: Assess/Block/Sedation-SS Anesthetic Plan Anesthetic Plan: GA Disposition: Standard PACU
--- NOTE | 2021-10-12 08:31 | MHC.SHP ---
Pre-Procedural Eval Section A Date of Service: 10/12/21 The patient is an INPATIENT: No Changes since office visit: Yes Patient answered all questions; No Cold of Flu in the past 2 weeks, No New Medical Problems and No Changes in Medication The History & Physical has been completed within 30 days and I have reviewed it.: Yes Section B Chief Complaint: a-fib Allergies: Allergies Allergy/AdvReac Type Severity Reaction Status Date / Time No Known Allergies Allergy Verified 08/17/21 14:07 [No Known Allergies*] Plan I have reviewed the history and physical and performed a pertinent physical examination on my patient. No changes have occurred unless specified.
[2021-10-12 12:58] VITALS: BMI 32.8
[2021-10-12 13:33] VITALS: BP 134/77; PULSE 75; RESP 16; TEMP 36.5; O2SAT 98
[2021-10-12 13:41] LABS: INTERNATIONAL NORM RATIO 2.2 (0.9-1.1); Prothrombin Time 25.7 SEC (9.9-13.0)
[2021-10-12] MEDS: Lactated Ringers 1,000 ML 50 ML IVCONT (14:07)
--- NOTE | 2021-10-12 14:40 | ECG_ITS ---
Test Reason : s/p cardioversion Blood Pressure : / mmHG Vent. Rate : 075 BPM Atrial Rate : 075 BPM P-R Int : 212 ms QRS Dur : 100 ms QT Int : 460 ms P-R-T Axes : 074 -30 046 degrees QTc Int : 513 ms Sinus rhythm with 1st degree A-V block with Premature atrial complexes Left anterior fascicular block Intra-ventricular conduction delay Nonspecific T wave abnormality Moderate voltage criteria for LVH, may be normal variant ( R in aVL , [place] product ) Prolonged QT Abnormal ECG When compared with ECG of 26-JUN-2021 12:35, Sinus rhythm has replaced Atrial fibrillation Referred By: Grzegorz Shepherd Electronically Signed By:MAURICIO LEIGH MD
--- NOTE | 2021-10-12 14:40 | HO.CARDIVERS ---
Cardioversion Procedure Note Cardioversion Date of Procedure: 10/12/2021 Ordering Provider: Myself Performing Provider: Myself Indication for Procedure: Persistent symptomatic rate control atrial fibrillation Pre-Op Diagnosis: Same Post-Op Diagnosis: Sinus rhythm Performed with Transesophageal Echo: No History: See my office note Consent: Verbal and Written consent was obtained from the patient before starting with help of the automobile salesman and confirming INR. The patient was made aware of the risk of synchronized cardioversion including risk, benefits, alternatives and 2nd opinion to procedure. Procedure: After consent obtained, cardioversion pads were attached in anteroposterior configuration and the patient was sedated by the anesthesia team. Once adequate sedation achieved, patient was delivered 200 joules of biphasic synchronized energy in anteroposterior configuration Complications: None Impression: Successful conversion to sinus rhythm Recommendations: Plan: 1. Twelve lead EKG 2. Continue full oral anticoagulation, check INR next week 3. Continue amiodarone therapy 4. Follow-up Holter monitor in office visit in 4 weeks 5. Follow-up with EPS for consideration for ablation
[2021-10-12 14:44] VITALS: BP 120/66; PULSE 78; RESP 16; TEMP 36.7; O2SAT 99
[2021-10-12 14:49] VITALS: BP 136/61; PULSE 86; RESP 18; O2SAT 99
[2021-10-12 14:54] VITALS: BP 132/66; PULSE 77; RESP 18; O2SAT 97
[2021-10-12 14:57] VITALS: BP 125/63; PULSE 76; RESP 18; O2SAT 98
[2021-10-12 15:12] VITALS: BP 128/62; PULSE 74; RESP 18; TEMP 36.7; O2SAT 97
== END 2021-10-12 15:39 | disposition home or self-care (01) ==
PROVIDERS: Nurse Practitioner; PCP Internal Medicine; Visit Provider Internal Medicine Cardiovascular Disease
PROC: 5A2204Z Restoration of Cardiac Rhythm, Single (ICD-10-PCS; principal; 2021-10-12 13:50)
DX: I48.19 Other persistent atrial fibrillation (principal); I10 Essential (primary) hypertension; I83.893 Varicose veins of bilateral lower extremities with other complications; Z85.3 Personal history of malignant neoplasm of breast; Z79.01 Long term (current) use of anticoagulants; Z79.899 Other long term (current) drug therapy
CPT/HCPCS: 36415; 85610; 92960; 93005

== ENCOUNTER → 2021-10-25 11:04 | Outpatient (REF) | payer MEDICARE, MEDICAID, SELFPAY ==
--- NOTE | 2021-10-25 11:08 | HM_ITS ---
Conclusion: 1. Patient was monitored for 1 day and 21 hours 2. Baseline rhythm is atrial fibrillation with average heart of 77 beats per minute 3. No significant pauses noted 4. Rare PVCs noted 5. No patient reported events MTDD
== END ==
LOC: HO.CARD 11:04
PROVIDERS: Visit Provider Internal Medicine Cardiovascular Disease
DX: I48.19 Other persistent atrial fibrillation (principal)
CPT/HCPCS: 93242

== ENCOUNTER → 2021-12-09 09:12 | Outpatient (BNVA) | payer MEDICARE, MEDICAID, SELFPAY | PROVIDERS: PCP Internal Medicine; Visit Provider Internal Medicine Cardiovascular Disease | DX: I48.19 Other persistent atrial fibrillation (principal) | CPT/HCPCS: 93005; 99212 ==

== ENCOUNTER → 2021-12-14 10:50 | Outpatient (REF) | payer MEDICARE, MEDICAID, SELFPAY ==
--- NOTE | 2021-12-14 10:53 | HM_ITS ---
Total monitoring time 3 days. Underlying rhythm is atrial fibrillation. Minimum heart rate 38/Min. Average 66/Min. Maximum 131/Min. 7 pauses noted, longest 2.9 seconds at 11:12pm. Very rare PVCs with minimal burden. No patient events. Overall, atrial fibrillation with optimal rate control. MTDD
== END ==
LOC: HO.CARD 10:50
PROVIDERS: Visit Provider Internal Medicine Cardiovascular Disease
DX: I48.19 Other persistent atrial fibrillation (principal)
CPT/HCPCS: 93242

== ENCOUNTER → 2022-02-02 09:56 | Outpatient (BNVA) | payer MEDICARE, MEDICAID, SELFPAY | PROVIDERS: PCP Internal Medicine; Visit Provider Orthopaedic Surgery | DX: M17.12 Unilateral primary osteoarthritis, left knee (principal); I82.441 Acute embolism and thrombosis of right tibial vein; I48.19 Other persistent atrial fibrillation | CPT/HCPCS: 99212 ==

== ENCOUNTER → 2022-02-17 09:08 | Outpatient (BNVA) | payer MEDICARE, MEDICAID, SELFPAY | PROVIDERS: PCP Internal Medicine; Visit Provider Internal Medicine Cardiovascular Disease | DX: I48.0 Paroxysmal atrial fibrillation (principal); I10 Essential (primary) hypertension; R06.02 Shortness of breath | CPT/HCPCS: 93005; 99212 ==

== ENCOUNTER → 2022-02-22 14:22 | Outpatient (REF) | payer MEDICARE, MEDICAID, SELFPAY ==
--- NOTE | 2022-02-22 14:26 | HM_ITS ---
* Total monitoring time 3 days. * Underlying rhythm is sinus. Average rate 69/Min. Range 53 to 129/Min. * No atrial fibrillation or flutter or AV blocks or pauses. * Rare supraventricular ectopy with minimal burden. * Rare ventricular ectopy with minimal burden. * No patient events. MTDD
--- NOTE | 2022-02-22 14:26 | CA_ITS ---
Transthoracic Echocardiogram Patient (Last, First, Middle): Angeles Pedersen, Gender: Female Date of : 1950 Age: 71 Procedure Date: 02/22/2022 Procedure Type: Transthoracic Echocardiogram Location: OP Height: 160.02 cm Weight: 88.45 kg BSA: 1.91 m2 Heart Rate: bpm BP: 142 / 70 mmHg Laundry Laborer: MICHAEL Referring MD: Grzegorz Shepherd MD Symptoms: R06.02 - Shortness of breath Study Quality: Fair Conclusions: - The left ventricular systolic function is normal. The calculated ejection fraction is 57% by biplane method. - Evidence suggests grade II (moderate) diastolic dysfunction. - Mildly increased right ventricular cavity size. - Aortic valve sclerosis but no significant stenosis. - There is mild mitral annular calcification. Findings Left Ventricle Normal left ventricular cavity size. There is mildly increased left ventricular wall thickness. The left ventricular systolic function is normal. The calculated ejection fraction is 57% by biplane method. There is no evidence of regional wall motion abnormalities. E/E prime ratio is between 8 and 15 consistent with indeterminate filling pressures. Evidence suggests grade II (moderate) diastolic dysfunction. Right Ventricle Mildly increased right ventricular cavity size. There is normal right ventricular systolic function. Atria Both atria are normal in size. Aortic Valve There is a normal trileaflet aortic valve. There is mild calcification of the aortic valve. The mean gradient is 10 mmHg. The aortic valve area is 1.73 cm2. There is no aortic valve regurgitation. Aortic valve sclerosis but no significant stenosis. Mitral Valve There is mild mitral annular calcification. There is trace mitral valve regurgitation. There is no mitral valve stenosis. Pulmonic Valve The pulmonic valve was not well visualized. Tricuspid Valve Normal tricuspid valve structure. There is mild tricuspid valve regurgitation. The pulmonary artery systolic pressure is normal. Great Vessels The asc aorta is normal in size. Venous The inferior vena cava is normal in size and collapses greater than 50% with inspiration. Pericardium/Pleural There is no evidence of pericardial effusion. Prior Study Comparison Changes noted compared to prior study dated: 10/05/2021. Rhythm change from atrial fibrillation to sinus. RV size is larger (3.7cm vs 4.6cm). Diastolic dysfunction. Measurements 2D Linear Measurements IVSd: 1.20 0.6-0.9/0.6-1.0 cm LVIDd: 4.46 3.9-5.3/4.2-5.9 cm LVIDd Index: 2.34 2.4-3.2/2.2-3.1 cm/m2 LVIDs: 2.68 2.0-3.6 cm LVPWd: 1.24 0.7-1.1 cm LA Diam: 4.00 2.7-3.8/3.0-4.0 cm LAIDs Index: 2.09 1.5-2.3 cm/m2 LV Mass: 249.38 67-162/88-224 g LV Mass Index: 130.57 43-95/49-115 g/m2 LVOT Diam: 2.00 3.0+(-)1.3 cm 2D Systolic Function EF 4C: 58.10 >55% EF 2C: 57.80 >55% EF BiP: 56.90 >55% Mitral Valve MV Pk E: 1.06 MV PK A: 0.55 MV Decel Time: 292.00 E/A: 1.90 E'Lateral: 8.27 E'Medial: 6.09 E/E' Med: 17.40 E/E' Lat: 12.80 PHT: 86.00 MVA PHT: 2.56 Decel [place]: 3.62 Aortic Valve AoV Pk Alfred: 2.22 AoV Mn Alfred: 1.54 AoV VTI: 0.56 AoV Pk Grad: 20.00 Aov Mn Grad: 10.00 SUNIL Cont.VTI: 1.73 LVOT LVOT Pk Alfred: 1.23 LVOT Mn Alfred: 0.83 LVOT VTI: 0.31 LVOT Pk Grad: 6.00 LVOT Mn Grad: 3.00 LVOT Diam: 2.00 LVOT Area: 3.14 Diastolic Function MV Pk E: 1.06 MV Pk A: 0.55 E/A: 1.90 E'Medial: 6.09 E/E' Med: 17.40 E' Laterial: 8.27 E/E' Lat: 12.80 Right Ventricle TAPSE (mm): 26.30 TVS' Alfred: 11.20 Tricuspid Valve TR Pk Alfred: 3.03 TR Pk Grad: 37.00 RA Press: 3.00 RVSP: 40.00 Great Vessels Aorta Sinus of Valsalva: 3.04 2.0-3.[address] [place]: 2.15 1.7-3.4 cm Ao Asc: 3.20 2.1-3.4 cm Pulmonary Valve PV Pk Alfred: 1.07 Peak PV Grad: 5.00 Updated in Other Vendor System with Status of Final Chris Tejada MD electronically signed on 02/24/2022 3:02:20 PM with status of Final
== END ==
LOC: HO.CARD 14:22
PROVIDERS: Visit Provider Internal Medicine Cardiovascular Disease
DX: I48.0 Paroxysmal atrial fibrillation (principal); R06.02 Shortness of breath
CPT/HCPCS: 93242; 93306

== ENCOUNTER → 2022-03-08 09:53 | Outpatient (BNVA) | payer MEDICARE, MEDICAID, SELFPAY | PROVIDERS: PCP Internal Medicine; Visit Provider Orthopaedic Surgery | DX: Z13.89 Encounter for screening for other disorder (principal) ==

== ENCOUNTER → 2022-03-21 10:06 | Outpatient (REF) | payer MEDICARE, MEDICAID, SELFPAY ==
--- NOTE | ~2022-03-21 | NM_ITS ---
Myocardial perfusion study Indication: Preprocedural cardiovascular exam with shortness of breath evaluate for myocardial anemia Technique: The patient was brought in for a Lexiscan perfusion study on 03/21/2022. Patient performed low-level exercise and was injected 0.4 mg of Lexiscan intravenously. Within a minute of injection, 30 mCi of sestamibi was given intravenously. Images were obtained using the SPECT gamma camera interlaced with the gating device. Images were obtained in supine position. Resting perfusion study was performed on 03/22/2022. Patient was administered 30 mCi of sestamibi intravenously at rest. Images were then obtained in supine position. Images obtained with and without CT attenuation. Total DLP 108 mGy-cm. Images were processed with the software and compared side to side in short axis, horizontal long axis and vertical long axis views. Findings: The stress perfusion study showed non attenuated images show mildly reduced uptake in the basal and mid anterior wall of the LV myocardium. Remainder of the LV myocardium is normally perfused. Attenuated corrected images uptake in the apex of the LV myocardium. The gated study shows normal LV systolic function with calculated LVEF of 60%. LV cavity is normal size. The gated study shows normal systolic wall thickening and contraction of segments. Resting study shows no change compared to stress perfusion study. Gating at rest reveals normal systolic wall motion with ejection fraction at 72%. The findings are consistent with normal myocardial perfusion. NM/NM mary perf SPECT rest & str Impression: 1. Myocardial perfusion imaging study shows normal myocardial perfusion 2. Gated LVEF is 60% 3. Transient ischemic dilatation not present EKG is nondiagnostic for ischemia
--- NOTE | 2022-03-21 10:09 | CA_ITS ---
Acquisition Time: 2022-03-21 10:23:19 Total Exercise Time: 00:02:00 Test Indications: I48.0 - Paroxysmal atrial fibri Medications: Protocol: LEXISCAN Max HR: 101 BPM 68% of Pred: 147 BPM Max BP: 148/078 mmHG Max Work Load: 1.0 METS Pharmacological stress test with Lexiscan injection, while sitting and kicking her legs, without anginal symptoms, without arrythmia, with normotensive response to injection, with nondiagnostic EKG for ischemia. In recovery she reported dizziness that was treated with Aminophylline 75 mg IVP to reverse Lexiscan with resolution of symptom. Nuclear images pending. Test reviewed with Dr Mahan. Referred By: Grzegorz Shepherd Overread By: LILLY FARFAN
== END ==
LOC: HO.CARD 10:06
PROVIDERS: Visit Provider Internal Medicine Cardiovascular Disease
DX: Z01.818 Encounter for other preprocedural examination (principal); I48.0 Paroxysmal atrial fibrillation; R06.02 Shortness of breath
CPT/HCPCS: 78452; 93017; A9500; J0280; J2785

== ENCOUNTER → 2022-04-04 13:10 | Outpatient (BNVA) | payer MEDICARE, MEDICAID, SELFPAY | PROVIDERS: PCP Internal Medicine; Visit Provider Internal Medicine Cardiovascular Disease | DX: Z01.810 Encounter for preprocedural cardiovascular examination (principal); I48.0 Paroxysmal atrial fibrillation; I10 Essential (primary) hypertension | CPT/HCPCS: 93005; 99212 ==

== ENCOUNTER → 2022-04-06 09:37 | Outpatient (BNVA) | payer MEDICARE, MEDICAID, SELFPAY | PROVIDERS: PCP Internal Medicine; Visit Provider Physician Assistant | DX: Z01.818 Encounter for other preprocedural examination (principal); M17.12 Unilateral primary osteoarthritis, left knee | CPT/HCPCS: 99212 ==

== ENCOUNTER 2022-04-11 10:15 | Inpatient (IN) | payer MEDICARE, MEDICAID, SELFPAY ==
[2022-04-04 12:01] VITALS: BP 125/57; PULSE 70; RESP 20; O2SAT 98; BMI 35.0
--- NOTE | 2022-04-04 12:24 | HO.ANESPROP2 ---
Documented by User: Emmie Avelar NP 04/10/22 08:37 HPI - Anesthesia Eval Consult details Narrative: 71yo F for Left Knee Replacement Total Eliquis for afib/hx DVT/lupus anticoag (s/p cardiac ablation 01/2022) (OK to hold 72 hours preop per heme) s/p cardiac ablation 01/[address] Shepherd preoperative cardiovascular risk stratification this elderly woman with limited exercise activity to undergo knee replacement surgery with recent myocardial perfusion imaging within normal limits.? Her echo shows normal LV systolic function but grade 2 diastolic dysfunction.? She is at risk for possibly developing heart failure in the perioperative.? Especially with rapid fluid change.? she is also at risk for developing atrial fibrillation.? Monitor closely in the perioperative time and transfuse as needed.? Her Eliquis can be held for 48 hours prior? To the surgery.? Consult us in the perioperative time if need be PMFSH Active Problems Active Problems: All Active Problems (Updated 04/03/22 @ 16:32 by Maren Portillo RN) SOB (shortness of breath) on exertion (Acute) Primary osteoarthritis of left knee (Acute) DVT (deep venous thrombosis) (Chronic) Cellulitis (Acute) Uncontrolled hypertension (Acute) Osteoarthritis of left knee (Acute) Paroxysmal atrial fibrillation (Acute) HTN (hypertension) (Acute) Past Medical History Medical History Allergic rhinitis Atrial fibrillation with rapid ventricular response Chronic dyspnea Generalized anxiety disorder History of cardioversion History of DVT (deep vein thrombosis) HTN (hypertension) Hx of breast cancer Lupus anticoagulant disorder On anticoagulant therapy On beta ayde at home Paroxysmal atrial fibrillation Persistent atrial fibrillation Post laminectomy syndrome Varicose veins of bilateral lower extremities with other complications Family History Family History Father No problems noted. Mother CVD (cardiovascular disease) HTN (hypertension) Stroke Family history of problems with anesthesia: No Surgical History Surgical History History of cardiac radiofrequency ablation (RFA) History of lumpectomy of left breast Hx of appendectomy Hx of breast biopsy Hx of spinal surgery History of Problems with Anesthesia: No Social History Social History Household Members: None Housing: House Are you a primary lawn caretaker to a significant other at home: No Do you presently have visiting nurse or other home services: Yes (Daily COMMUNITY OUTREACH COORDINATOR) Alcohol intake: former Patient Tobacco Use Status: Never used Tobacco Second Hand Smoke Exposure: No Use of substances other than those prescribed or required for medical reasons: No Have you been hit, kicked, punched, or otherwise hurt by someone within the past year? If so, by whom?: No Are you DNR?: No Advance Directives: No Advance Directives Information Provided: Yes (HCP- Daughter- Susan) Advance Directives on File: No Recently lost weight without trying: No Eating poorly because of decreased appetite: No Nutrition Risks: No Nutritional Risk Patient : No Poor oral hygiene: Yes (Intact) service: No Current occupational status: retired Narrative Narrative: No recent illness No CP/SOB with very minimal activity. Activity limited to knee pain. Meds Allergies Allergy/AdvReac Type Severity Reaction Status Date / Time No Known Allergies Allergy Verified 04/11/22 10:48 [No Known Allergies*] Home Medications Medication Instructions Recorded Confirmed Last Taken Type celecoxib 200 mg capsule 200 mg PO DAILY 10/12/20 04/04/22 06/21/21 History cholecalciferol (vitamin D3) 50 50 mcg PO DAILY 10/12/20 04/04/22 10/12/21 History mcg (2,000 unit) tablet glucosamine sulfate 750 mg tablet 750 mg PO DAILY 08/17/21 04/04/22 Unknown History omega-3 fatty acids 2,000 mg PO DAILY 08/17/21 04/04/22 Unknown History risperidone 0.5 mg tablet 0.5 mg PO BEDTIME tab 10/04/21 04/04/22 10/12/21 History apixaban 5 mg tablet (Eliquis) 5 mg PO BID 02/17/22 04/11/22 04/07/22 History Exam Exam Date and Time: April 04, 2022 1224 Height,Weight and Vital Signs: Height 5 ft 3 in Weight 89.811 kg Last Vital Signs Pulse 70 04/04/22 12:01 Resp 20 04/04/22 12:01 BP 125/57 L 04/04/22 12:01 Pulse Ox 98 04/04/22 12:01 Narrative Narrative: EKG 03/2022 normal sinus rhythm with poor R-wave progression most likely due to lead placement otherwise normal EKG ECHO 01/2022 Conclusions: - The left ventricular systolic function is normal.? The ? calculated ejection fraction is 57% by biplane method. ? - Evidence suggests grade II (moderate) diastolic dysfunction. ? - Mildly increased right ventricular cavity size.? - Aortic valve sclerosis but no significant stenosis.? - There is mild mitral annular calcification.? ? NM mary perf SPECT rest & str 02/2022 Impression: ? 1.? Myocardial perfusion imaging study shows normal myocardial perfusion 2.? Gated LVEF is 60% 3. Transient ischemic dilatation not present ? EKG is nondiagnostic for ischemia Airway Mallampati Class: III TM Dist: >3cm Neck ROM: Full Loose/Missing/Broken Teeth: Yes Heart: RRR Lungs: CTAB Assessment and Plan Assessment Anesthesia Assessment: Anesthesia Plan Discussed and PAT Visit Final Anesthetic Review Family History of Problems with Anesthesia: No History of Problems with Anesthesia: No Documented by User: Kain Vasquez MD 04/11/22 18:32 HPI - Anesthesia Eval Consult details Narrative: 71yo F for Left Knee Replacement Total Eliquis for afib/hx DVT/lupus anticoag (s/p cardiac ablation 01/2022) (OK to hold 72 hours preop per heme) s/p cardiac ablation 01/[address] Shepherd preoperative cardiovascular risk stratification this elderly woman with limited exercise activity to undergo knee replacement surgery with recent myocardial perfusion imaging within normal limits.? Her echo shows normal LV systolic function but grade 2 diastolic dysfunction.? She is at risk for possibly developing heart failure in the perioperative.? Especially with rapid fluid change.? she is also at risk for developing atrial fibrillation.? Monitor closely in the perioperative time and transfuse as needed.? Her Eliquis can be held for 48 hours prior? To the surgery.? Consult us in the perioperative time if need be Patient with PAF , in the past failed cardioversion and amiodrone therapy . As per cardiology as she failed these therapies she was at risk of developing A fib even after undergoing ablation . She underwent ablation recently . In pre op the patient was once again in A fib but rate controlled . I discussed the case with the surgeon . We decided to proceed with the procedure and requested to consult cardiology post operatively . I also had a discussion with the patient regarding increased risk of complications in the junior operative period . [facility] Past Medical History Medical History Allergic rhinitis Atrial fibrillation with rapid ventricular response Chronic dyspnea Generalized anxiety disorder History of cardioversion History of DVT (deep vein thrombosis) HTN (hypertension) Hx of breast cancer Lupus anticoagulant disorder On anticoagulant therapy On beta ayde at home Paroxysmal atrial fibrillation Persistent atrial fibrillation Post laminectomy syndrome Varicose veins of bilateral lower extremities with other complications Family History Family History Father No problems noted. Mother CVD (cardiovascular disease) HTN (hypertension) Stroke Surgical History Surgical History History of cardiac radiofrequency ablation (RFA) History of lumpectomy of left breast Hx of appendectomy Hx of breast biopsy Hx of spinal surgery Social History Social History Household Members: None Housing: House Are you a primary lawn caretaker to a significant other at home: No Do you presently have visiting nurse or other home services: Yes (Daily COMMUNITY OUTREACH COORDINATOR) Alcohol intake: former Patient Tobacco Use Status: Never used Tobacco Second Hand Smoke Exposure: No Use of substances other than those prescribed or required for medical reasons: No Have you been hit, kicked, punched, or otherwise hurt by someone within the past year? If so, by whom?: No Are you DNR?: No Advance Directives: No Advance Directives Information Provided: Yes (HCP- Daughter- Susan) Advance Directives on File: No Recently lost weight without trying: No Eating poorly because of decreased appetite: No Nutrition Risks: No Nutritional Risk Patient : No Poor oral hygiene: Yes (Intact) service: No Current occupational status: retired Meds Allergies Allergy/AdvReac Type Severity Reaction Status Date / Time No Known Allergies Allergy Verified 04/11/22 10:48 [No Known Allergies*] Home Medications Medication Instructions Recorded Confirmed Last Taken Type celecoxib 200 mg capsule 200 mg PO DAILY 10/12/20 04/04/22 06/21/21 History cholecalciferol (vitamin D3) 50 50 mcg PO DAILY 10/12/20 04/04/22 10/12/21 History mcg (2,000 unit) tablet glucosamine sulfate 750 mg tablet 750 mg PO DAILY 08/17/21 04/04/22 Unknown History omega-3 fatty acids 2,000 mg PO DAILY 08/17/21 04/04/22 Unknown History risperidone 0.5 mg tablet 0.5 mg PO BEDTIME tab 10/04/21 04/04/22 10/12/21 History apixaban 5 mg tablet (Eliquis) 5 mg PO BID 02/17/22 04/11/22 04/07/22 History Exam Airway Loose/Missing/Broken Teeth: Yes (Chipped , poor ) Heart: Irregular Assessment and Plan Assessment Anesthesia Assessment: Chart Reviewed Final Anesthetic Review NPO: Yes ASA Class: III Final Preanesthetic Review: Meds/Allgs Chart Reviewed, Consent Obtained/Reviewed and Anes Risks/Benef Reviewed Patient Risk: High Procedure Risk: Intermediate Anesthetic Plan Anesthetic Plan: GA and Regional Block Disposition: Inp. Admit - Standard Bed
[2022-04-04 16:28] LABS: MRSA Nasal PCR NEGATIVE (Negative); SA Nasal PCR NEGATIVE (Negative)
[2022-04-11] VITALS (13 sets, daily range): BP systolic 121–170; BP diastolic 53–79; PULSE 66–82; RESP 14–18; TEMP 36.2–36.6; O2SAT 92–100
--- NOTE | ~2022-04-11 | XR_ITS ---
EXAMINATION: XR KNEE, LEFT CLINICAL INFORMATION: Left total knee replacement COMPARISON: 05/16/2021 TECHNIQUE: Two views of the left knee. FINDINGS: Since the prior study there is been a total left knee replacement. Immediate postop imaging shows air in the subcutaneous tissues and surgical jodie. The prosthesis appears in good position XR/XR knee LT 2V IMPRESSION: Appropriate alignment of the left total knee arthroplasty.
[2022-04-11 11:17] LABS: COVID-19 Test Negative (Negative); IDNOW Serial# 16C4AD1C
[2022-04-11 11:28] LABS: Hematocrit 39.1 % (37.0-47.0); Hemoglobin 12.9 g/dl (12.0-16.0)
[2022-04-11] MEDS: Lactated Ringers 1,000 ML 50 ML IVCONT (11:43)
--- NOTE | 2022-04-11 12:00 | PC.NURSE ---
Patient arrived to [facility] for surgical prep. Heart rhythm showed Afib on monitor. Patient has history of this. Last EKG on 04/04/[address] Vasquez made aware and at bedside. No new orders at this time. Okay to proceed. Patient also arrived with redness on right lower leg. States this is normal for this leg, I have a history of a DVT in that leg, it is always more red than the other leg due to swelling . Dr. Vasquez made aware. Dr. Johnston at bedside and also aware. No new order at this time.
--- NOTE | 2022-04-11 12:50 | MHC.SHP ---
Pre-Procedural Eval Section A Date of Service: 04/11/22 The patient is an INPATIENT: No Changes since office visit: Yes Patient answered all questions; No Cold of Flu in the past 2 weeks, No New Medical Problems and No Changes in Medication The History & Physical has been completed within 30 days and I have reviewed it.: Yes Section B Chief Complaint: LT TKA Allergies: Allergies Allergy/AdvReac Type Severity Reaction Status Date / Time No Known Allergies Allergy Verified 04/11/22 10:48 [No Known Allergies*] Plan I have reviewed the history and physical and performed a pertinent physical examination on my patient. No changes have occurred unless specified.
--- NOTE | 2022-04-11 14:54 | P.BOP_ITS ---
Brief Operative Note Date of Service: 04/11/22 Pre-op diagnosis: Left TKA Post-op diagnosis: same Procedure: Left knee arthroplasty Implants: Lerona Triathalong press fir cruciate retaining Surgeon: Alexy Johnston MD Anesthesia: GETA and regional Was an Therapeutic Recreation Specialist used for this Procedure?: Yes Therapeutic Recreation Specialist: Tere Najera Estimated blood loss (mL): 200 IV fluids (mL): 150 Pathology: other Condition: stable Disposition: PACU
[2022-04-11] MEDS: ceFAZolin Sodium/Dextrose,Iso 2 GM/50 ML PIGGYBACK IV (19:38)
--- NOTE | 2022-04-11 20:05 | PHA.MEDREC ---
MED REC COMPLETE, NO ISSUES Pharmacy Consult ? Medication Reconciliation Pharmacy has completed the medication reconciliation.
[2022-04-11] MEDS: risperiDONE 0.5 MG TABLET PO (22:33)
[2022-04-11] MEDS: oxyCODONE HCl ER 10 MG TAB.ER.12H PO (22:33)
[2022-04-11] MEDS: Celecoxib 200 MG CAPSULE PO (22:33)
[2022-04-11] MEDS: Docusate Sodium 100 MG CAPSULE PO (22:33)
[2022-04-12] VITALS (9 sets, daily range): BP systolic 122–153; BP diastolic 57–65; PULSE 72–86; RESP 16–18; TEMP 36.4–36.8; O2SAT 94–98
[2022-04-12 07:09] LABS: MANUAL DIFF FLAG NO
[2022-04-12 07:14] LABS: Basophils Percent Auto 0.3 % (0-2); Eosinophils Percent Auto 0.1 % (0-4); Hematocrit 31.7 % (37.0-47.0); Hemoglobin 10.3 g/dl (12.0-16.0); Imm Gran Abs Auto 0.03 X10*3/uL (0.00-0.03); Imm Gran Pct Auto 0.4 % (0.0-0.4); Lymphocytes Absolute Auto 1.2 X10*3/uL (1.2-4.9); Lymphocytes Percent Auto 15.9 % (20-40); Mean Corpuscular HGB Conc 32.5 g/dl (31.0-35.0); Mean Corpuscular Hemoglobin 30.3 pg (27.0-33.0); Mean Corpuscular Volume 93.2 fL (80.0-98.0); Monocytes Absolute Auto 1.3 X10*3/uL (0.1-1.2); Monocytes Percent Auto 16.4 % (2-11); Neutrophils Absolute Auto 5.1 x10*3/uL (2.0-8.3); Neutrophils Percent Auto 66.9 % (45-73); Platelet Count 195 X10*3/uL (160-400); Red Cell Distribution Width 15.3 % (11.0-16.0); White Blood Count 7.7 X10*3/uL (4.8-10.8)
[2022-04-12] MEDS: oxyCODONE HCl Immed Release 5 MG TABLET PO ×2 (07:31→19:59)
--- NOTE | 2022-04-12 07:31 | P.PNOP_ITS ---
Subjective Subjective Date of Service: 04/12/22 Interval history: POD 1 s/p LT TKA No overnight events, she is resting in bed tolerating pain She has been out of bed using bathroom. keith cp, sob, palpitations. Physical Exam Vital Signs: Vital Signs: Last Vital Signs Temp 98.3 F 04/12/22 04:00 Pulse 81 04/12/22 04:00 Resp 16 04/12/22 04:00 BP 153/57 H 04/12/22 04:00 Pulse Ox 94 04/12/22 04:00 BMI result Body Mass Index 35.0 Const: General: cooperative, healthy appearing and no acute distress Resp: Effort & Inspection: normal respiratory effort and able to speak in complete sentences Cardio: Rate: regular rate Peripheral pulses: Peripheral pulses 2+ throughout GI: Palpation (GI): Soft to palpation Skin: General skin exam: no rashes or lesions noted Extrem: Other: incision clean dry and intact. Quincy intact. No erythema or joint effusion. Calf supple nontender. Neurovascularly intact. Procedures Date of Service Date of Service: 04/12/22 Progress Note: A&P Assessment and plan (1) Status post total left knee replacement: Status: Acute Assessment and Plan: * Continue pain mgmnt * Begin Lovenox for dvt ppx-->resume eliquis 48 hrs post op * begin PT for LT TKA * Dispo planning-Pending PT eval, pain mgmnt Time Spent With Patient Time: Total time spent is greater than 50% in coordination of care (as documented) at patient's floor/unit and/or counseling patient: Quality Stroke Does the patient have a stroke diagnosis?: No VTE Prior VTE?: Yes VTE Risk Level:: Surgical - high VTE Device Contraindication: N/A - Device Ordered VTE Drug Contraindication: N/A - Med Ordered
[2022-04-12 07:52] LABS: Anion Gap 9 (12-20); Blood Urea Nitrogen 21 mg/dL (9-16); Calcium 8.7 mg/dL (8.4-10.2); Carbon Dioxide 25 mmol/L (22-29); Chloride 99 mmol/L (96-108); Creatinine Clr Calc Pharmacy 59.8; Estimated Glomerular Filt Rate > 60; Glucose Fasting 116 mg/dL (60-99); Potassium 3.8 mmol/L (3.3-5.1); Sodium 129 mmol/L (135-145)
[2022-04-12 07:53] LABS: Creatinine Clr Calc Pharmacy 59.2; Estimated Glomerular Filt Rate > 60
--- NOTE | 2022-04-12 08:03 | P.CDIC_ITS ---
CDI Concurrent Query Documentation Clarification: PHYSICIAN'S DOCUMENTATION REQUEST Date of Query: 04/12/22 0803 Patient Name: Angeles Pedersen Admit Date: 04/11/22 Dear Doctor, A review of the medical record indicates additional documentation may be needed. Please review below and update the documentation accordingly. Risk Factors/Clinical Indicators/Treatments Body mass index: 35.0 5' 3 in height. If possible, please provide an associated diagnosis related to the abnormal BMI, such as: For a BMI >= 30: * Overweight * Obesity * Due to excess calories * Drug induced * Due to other cause Or: * BMI is not significant * Other (please specify) * Unable to determine Use of terms such as suspected, likely, concern for, or probable (associated with a specific diagnosis that is being evaluated, monitored, or treated as if it exists) are acceptable and can be coded in the inpatient setting, when documented at the time of discharge. Thank you, Ellie Abdalla [facility], CDIS Extension: [phone] Please use your independent medical judgment in providing your response. THIS QUERY IS PART OF THE PERMANENT MEDICAL RECORD Provider Response: Obesity
--- NOTE | 2022-04-12 09:06 | MHC.CM.PN ---
PATIENT ASKS THIS CATERING DIRECTOR TO CONTACT DAUGHTER MILAN @ [phone] FOR ASSESSMENT QUESTIONS AND CHOICES FOR REHAB (PATIENT WANTS TO GO TO REHAB UPON DISCHARGE) SHE DOES GIVE PERMISSION TO LEAVE MEDICARE RIGHTS (IMM) FOR DAUGHTER TO [facility]. CONTACT CARD LEFT IN THE EVENT THAT THERE ARE ANY RELATED QUESTIONS. MILAN ASKS FOR A REFERRAL TO [facility] SHE STATES THAT PATIENT LIVES ALONE AND BATHROOM IS ON THE SECOND FLOOR. IF [facility] IS UNABLE TO OFFER, SHE ASKS FOR ANY FACILITY THAT IS CLEAN PER DAUGHTER, PATIENT IS FULLY (X3) VACCINATED IMM 04/12 IN CHART
[2022-04-12] MEDS: oxyCODONE HCl ER 10 MG TAB.ER.12H PO ×2 (09:09→19:59)
[2022-04-12] MEDS: Docusate Sodium 100 MG CAPSULE PO ×2 (09:09→19:59)
[2022-04-12] MEDS: Metoprolol Succinate ER 50 MG TAB.ER.24H PO (09:10)
[2022-04-12] MEDS: Celecoxib 200 MG CAPSULE PO ×2 (09:10→19:59)
[2022-04-12] MEDS: Lactated Ringers 1,000 ML 50 ML IVCONT (09:12)
--- NOTE | 2022-04-12 09:24 | HO.PM.IMCN ---
History of Present Illness Data of Consult Service Date: 04/12/22 Requesting physician: Alexy Johnston Primary Care Provider: Unknown Physician HPI 71-year-old woman with history of DVT, hypertension, paroxysmal atrial fibrillation was admitted by Orthopedic surgery and is status post left total knee arthroplasty. Patient has a moderate amount of pain at this time however she is sitting up eating her breakfast without any nausea or vomiting. She has been hemodynamically stable. Review of Systems Review of Systems: Denies any recent fever chills or decrease in appetite respiratory denies any shortness of breath coverage production cardiovascular Denies chest pain gastrointestinal denies any dysphagia abdominal pain nausea vomiting or diarrhea genitourinary denies any dysuria frequency or hematuria musculoskeletal see HPI neuropsych denies any weakness or seizures all other systems reviewed are negative [facility] Medical History Allergic rhinitis Atrial fibrillation with rapid ventricular response Chronic dyspnea Generalized anxiety disorder History of cardioversion History of DVT (deep vein thrombosis) HTN (hypertension) Hx of breast cancer Lupus anticoagulant disorder On anticoagulant therapy On beta ayde at home Paroxysmal atrial fibrillation Persistent atrial fibrillation Post laminectomy syndrome Varicose veins of bilateral lower extremities with other complications Family History Father No problems noted. Mother CVD (cardiovascular disease) HTN (hypertension) Stroke Surgical History History of cardiac radiofrequency ablation (RFA) History of lumpectomy of left breast Hx of appendectomy Hx of breast biopsy Hx of spinal surgery Social History Household Members: None Housing: Apartment Are you a primary hospice care transitions coordinator to a significant other at home: No Do you presently have visiting nurse or other home services: Yes Alcohol intake: former Patient Tobacco Use Status: Never used Tobacco Second Hand Smoke Exposure: No Use of substances other than those prescribed or required for medical reasons: No Have you been hit, kicked, punched, or otherwise hurt by someone within the past year? If so, by whom?: No Do you feel safe in your current relationship?: No Current Relationship Is there a partner from a previous relationship who is making you feel unsafe now?: No Are you made to feel afraid or neglected: No Are you DNR?: No Advance Directives: No Advance Directives Information Provided: Yes (HCP- Daughter- Susan) Advance Directives on File: No Do you have thoughts of harming others: None Do you have a plan to hurt others: No Plan Recently lost weight without trying: No Eating poorly because of decreased appetite: No Nutrition Risks: No Nutritional Risk Patient : No : No Poor oral hygiene: No service: No Current occupational status: retired Meds Allergies Allergy/AdvReac Type Severity Reaction Status Date / Time No Known Allergies Allergy Verified 04/11/22 10:48 [No Known Allergies*] Active Medications: Current Medications Acetaminophen (Acetaminophen 325 Mg Tablet) 650 mg PO Q6H PRN PRN Reason: Pain, Mild (Pain Scale 1-3) Celecoxib (Celecoxib 200 Mg Capsule) 200 mg PO BID COUNTS INCLUDE 234 BEDS AT THE [facility] Last Admin: 04/12/22 09:10 Dose: 200 mg Documented by: Docusate Sodium (Docusate Sodium 100 Mg Capsule) 100 mg PO BID COUNTS INCLUDE 234 BEDS AT THE [facility] Last Admin: 04/12/22 09:09 Dose: 100 mg Documented by: Enoxaparin Sodium (Enoxaparin Sodium 40 Mg/0.4 Ml Syringe) 40 mg SUBCUT Q24H COUNTS INCLUDE 234 BEDS AT THE [facility] Hydromorphone HCl (Hydromorphone Hcl 0.5 Mg/0.5 Ml Syringe) 0.25 mg IVPUSH Q4H PRN; Protocol PRN Reason: Pain, Severe (Pain Scale 7-10) Lactated Ringer's (Lr) 1,000 mls @ 50 mls/hr IVCONT .Q20H COUNTS INCLUDE 234 BEDS AT THE [facility] Last Admin: 04/12/22 09:12 Dose: 50 mls/hr Documented by: Metoprolol Succinate (Metoprolol Succinate Er 50 Mg Tab.Er.24h) 50 mg PO DAILY COUNTS INCLUDE 234 BEDS AT THE [facility]; Protocol Last Admin: 04/12/22 09:10 Dose: 50 mg Documented by: Ondansetron HCl (Ondansetron Hcl 4 Mg/2 Ml Vial) 4 mg IVPUSH Q8H PRN PRN Reason: Nausea and Vomiting Oxycodone HCl (Oxycodone Hcl Immed Release 5 Mg Tablet) 5 mg PO Q4H PRN PRN Reason: Pain, Moderate (Pain Scale 4-6 Last Admin: 04/12/22 07:31 Dose: 5 mg Documented by: Oxycodone HCl (Oxycodone Hcl Er 10 Mg Tab.Er.12h) 10 mg PO BID COUNTS INCLUDE 234 BEDS AT THE [facility] Last Admin: 04/12/22 09:09 Dose: 10 mg Documented by: Risperidone (Risperidone 0.5 Mg Tablet) 0.5 mg PO BEDTIME COUNTS INCLUDE 234 BEDS AT THE [facility] Last Admin: 04/11/22 22:33 Dose: 0.5 mg Documented by: Sodium Chloride (0.9 % Sodium Chloride Flush 3 Ml Syringe) 3 ml IVFLUSH QSHIFT COUNTS INCLUDE 234 BEDS AT THE [facility] Last Admin: 04/12/22 07:33 Dose: Not Given Documented by: Home Medications Medication Instructions Recorded Confirmed Last Taken Type celecoxib 200 mg capsule 200 mg PO DAILY 10/12/20 04/04/22 06/21/21 History cholecalciferol (vitamin D3) 50 50 mcg PO DAILY 10/12/20 04/04/22 10/12/21 History mcg (2,000 unit) tablet glucosamine sulfate 750 mg tablet 750 mg PO DAILY 08/17/21 04/04/22 Unknown History omega-3 fatty acids 2,000 mg PO DAILY 08/17/21 04/04/22 Unknown History risperidone 0.5 mg tablet 0.5 mg PO DAILY tab 10/04/21 04/11/22 10/12/21 History apixaban 5 mg tablet (Eliquis) 5 mg PO BID 02/17/22 04/11/22 04/07/22 History Physical Exam Vital Signs and Narrative: Vital Signs: Last Vital Signs Temp 98.1 F 04/12/22 07:57 Pulse 84 04/12/22 07:57 Resp 18 04/12/22 07:57 BP 129/59 L 04/12/22 07:57 Pulse Ox 96 04/12/22 07:57 BMI result Body Mass Index 35.0 Appearing in no acute distress head is normocephalic atraumatic eyes pupils are PERRLA sclera is anicteric mouth throat mucous membranes are intact and moist neck is supple no lymphadenopathy, no JVD noted lung sounds are clear to auscultation heart regular rate rhythm, clear S1, S2 positive bowel sounds, abdomen is soft, nontender neuro patient is alert x3, no focal deficits Surgical dressing to left knee intact, surgical incision wound not visualized Results Labs CBC and Chem 7: 04/12/22 07:04 04/12/22 07:04 Labs: Laboratory Results - last 24 hr 05/09/1604/11/22 04/12/22 13:00 10:25 07:04 MCV MCH MCHC RDW Plt Count MPV Immature Gran % (Auto) Neut % (Auto) Lymph % (Auto) [place] % (Auto) Eos % (Auto) Baso % (Auto) Lymph # (Auto) [place] # (Auto) Eos # (Auto) Baso # (Auto) Abs Immat Gran (auto) Absolute Neuts (auto) Absolute Nucleated RBC Nucleated RBC % (auto) Anion Gap Estim Creat Clear Calc 59.2 Estimated GFR > 60 Fasting Glucose Calcium COVID-19 ([facility]) Negative COVID-19 Clin Com See Note Crossmatch ([facility]) See Detail 04/12/22 04/12/22 07:04 07:04 MCV 93.2 MCH 30.3 MCHC 32.5 RDW 15.3 Plt Count 195 MPV 12.0 Immature Gran % (Auto) 0.4 Neut % (Auto) 66.9 Lymph % (Auto) 15.9 L [place] % (Auto) 16.4 H Eos % (Auto) 0.1 Baso % (Auto) 0.3 Lymph # (Auto) 1.2 [place] # (Auto) 1.3 H Eos # (Auto) 0.0 Baso # (Auto) 0.0 Abs Immat Gran (auto) 0.03 Absolute Neuts (auto) 5.1 Absolute Nucleated RBC 0.000 Nucleated RBC % (auto) 0.0 Anion Gap 9 L Estim Creat Clear Calc 59.8 Estimated GFR > 60 Fasting Glucose 116 H Calcium 8.7 D COVID-19 ([facility]) COVID-19 Clin Com Crossmatch ([facility]) Imaging Radiologist's Impressions: Impressions Knee X-Ray 04/11/22 17:00 IMPRESSION: Appropriate alignment of the left total knee arthroplasty. Assessment and Plan (1) Status post total left knee replacement: Status: Acute Plan 71-year-old woman admitted by Orthopedic surgery and is status post left total knee arthroplasty Left total knee arthroplasty Management as per surgical team Pain management Hyponatremia. Mild. Stop IV fluids Check sodium this afternoon Paroxysmal atrial fibrillation Heart rate stable Continue metoprolol Eliquis is on hold as patient is postop Hypertension. Hold blood pressure medications patient is postoperative, restart when blood pressure allows Mental health Continue medications DVT prophylaxis per surgical team Attending Dr. Larios
--- NOTE | 2022-04-12 09:27 | ECG_ITS ---
Test Reason : afib Blood Pressure : / mmHG Vent. Rate : 113 BPM Atrial Rate : 000 BPM P-R Int : 000 ms QRS Dur : 092 ms QT Int : 350 ms P-R-T Axes : 000 -18 065 degrees QTc Int : 480 ms Atrial fibrillation with rapid ventricular response Abnormal ECG When compared with ECG of 12-OCT-2021 14:50, Atrial fibrillation has replaced Sinus rhythm Vent. rate has increased BY 38 BPM Referred By: Esau Lloyd Electronically Signed By:ESAU LLOYD
--- NOTE | 2022-04-12 10:18 | P.CONCA_ITS ---
History of Present Illness History of Present Illness Date of Service: 04/12/22 Chief complaint: LT TKA Narrative: This is a cardiology consultation regarding atrial fibrillation. Generally for by Dr. Shepherd in our office. She was in fact just seen by him for preoperative evaluation few days back. At that time, it seems she was in sinus rhythm by EKG. She had the total knee replacement yesterday. From a cardiac standpoint, she does not have any symptoms like angina or shortness of breath or in fact anything cardiac related. However, auscultation she seems to have atrial fibrillation with rapid rate. When I questioned her about this, she states that she does not feel anything. Based on Dr. Shepherd consult from few days ago, patient has paroxysmal atrial fibrillation for which she underwent ablation last year. She was on amiodarone but that has apparently been stopped. She is maintained only on beta-blockers. She is on Eliquis but that has been held briefly for the knee surgery. Otherwise, there is also history of hypertension. Review of Systems Review of Systems: Yes all other systems are reviewed and are negative Constitutional: Constitutional: Reports as per HPI Eyes: Eyes: Reports as per HPI ENT: Reports as per HPI Cardiovascular: Cardiovascular: Reports as per HPI, Denies acrocyanosis, Denies cool extremities, Denies chest pain, Denies leg edema, Denies lightheadedness, Denies palpitations and Denies dyspnea Respiratory: Respiratory: Reports as per HPI, Reports no additional respiratory complaints and Denies dyspnea Gastrointestinal: Gastrointestinal: Reports as per HPI and Reports no additional gastrointestinal complaints Genitourinary: Genitourinary: Reports as per HPI Musculoskeletal: Musculoskeletal: Reports no additional musculoskeletal complaints and Reports as per HPI Integumentary/Breasts: Skin/Breast: Reports system reviewed and no additional complaints, except as docu Neurologic: Reports system reviewed and no additional complaints, except as documented and Reports as per HPI Psychiatric: Psychiatric: Reports no additional psychiatric complaints and Reports as per HPI Endocrine: Endocrine: Reports no additional endocrine complaints, Reports as per HPI and Denies palpitations Hematologic/Lymphatic: Hematologic/Lymphatic: Reports no additional hematologic/lymphatic complaints and Reports as per HPI Allergic/Immunologic: Allergic/Immunologic: Reports no additional allergic/immunologic complaints and Reports as per HPI [facility] Past Medical History Medical History (Updated 04/12/22 @ 10:23 by Chris Tejada MD) Allergic rhinitis Atrial fibrillation with rapid ventricular response Chronic dyspnea Generalized anxiety disorder History of cardioversion History of DVT (deep vein thrombosis) HTN (hypertension) Hx of breast cancer Lupus anticoagulant disorder On anticoagulant therapy On beta ayde at home Paroxysmal atrial fibrillation Persistent atrial fibrillation Post laminectomy syndrome Varicose veins of bilateral lower extremities with other complications Family History Family History Father No problems noted. Mother CVD (cardiovascular disease) HTN (hypertension) Stroke Surgical History Surgical History History of cardiac radiofrequency ablation (RFA) History of lumpectomy of left breast Hx of appendectomy Hx of breast biopsy Hx of spinal surgery Social History Social History Household Members: None Housing: Apartment Are you a primary healthcare prof to a significant other at home: No Do you presently have visiting nurse or other home services: Yes Alcohol intake: former Patient Tobacco Use Status: Never used Tobacco Second Hand Smoke Exposure: No service: No Current occupational status: retired [employer] Allergies Allergy/AdvReac Type Severity Reaction Status Date / Time No Known Allergies Allergy Verified 04/11/22 10:48 [No Known Allergies*] Active Medications: Current Medications Acetaminophen (Acetaminophen 325 Mg Tablet) 650 mg PO Q6H PRN PRN Reason: Pain, Mild (Pain Scale 1-3) Celecoxib (Celecoxib 200 Mg Capsule) 200 mg PO BID [facility] Last Admin: 04/12/22 09:10 Dose: 200 mg Documented by: Docusate Sodium (Docusate Sodium 100 Mg Capsule) 100 mg PO BID [facility] Last Admin: 04/12/22 09:09 Dose: 100 mg Documented by: Enoxaparin Sodium (Enoxaparin Sodium 40 Mg/0.4 Ml Syringe) 40 mg SUBCUT Q24H [facility] Hydromorphone HCl (Hydromorphone Hcl 0.5 Mg/0.5 Ml Syringe) 0.25 mg IVPUSH Q4H PRN; Protocol PRN Reason: Pain, Severe (Pain Scale 7-10) Metoprolol Succinate (Metoprolol Succinate Er 50 Mg Tab.Er.24h) 50 mg PO DAILY [facility]; Protocol Last Admin: 04/12/22 09:10 Dose: 50 mg Documented by: Ondansetron HCl (Ondansetron Hcl 4 Mg/2 Ml Vial) 4 mg IVPUSH Q8H PRN PRN Reason: Nausea and Vomiting Oxycodone HCl (Oxycodone Hcl Immed Release 5 Mg Tablet) 5 mg PO Q4H PRN PRN Reason: Pain, Moderate (Pain Scale 4-6 Last Admin: 04/12/22 07:31 Dose: 5 mg Documented by: Oxycodone HCl (Oxycodone Hcl Er 10 Mg Tab.Er.12h) 10 mg PO BID [facility] Last Admin: 04/12/22 09:09 Dose: 10 mg Documented by: Risperidone (Risperidone 0.5 Mg Tablet) 0.5 mg PO BEDTIME [facility] Last Admin: 04/11/22 22:33 Dose: 0.5 mg Documented by: Sodium Chloride (0.9 % Sodium Chloride Flush 3 Ml Syringe) 3 ml IVFLUSH QSHIFT [facility] Last Admin: 04/12/22 07:33 Dose: Not Given Documented by: Home Medications Medication Instructions Recorded Confirmed Last Taken Type celecoxib 200 mg capsule 200 mg PO DAILY 10/12/20 04/04/22 06/21/21 History cholecalciferol (vitamin D3) 50 50 mcg PO DAILY 10/12/20 04/04/22 10/12/21 History mcg (2,000 unit) tablet glucosamine sulfate 750 mg tablet 750 mg PO DAILY 08/17/21 04/04/22 Unknown History omega-3 fatty acids 2,000 mg PO DAILY 08/17/21 04/04/22 Unknown History risperidone 0.5 mg tablet 0.5 mg PO DAILY tab 10/04/21 04/11/22 10/12/21 History apixaban 5 mg tablet (Eliquis) 5 mg PO BID 02/17/22 04/11/22 04/07/22 History Physical Exam Vital Signs: Vital Signs: Last Vital Signs Temp 98.1 F 04/12/22 07:57 Pulse 84 04/12/22 09:36 Resp 18 04/12/22 07:57 BP 129/59 L 04/12/22 09:36 Pulse Ox 96 04/12/22 09:36 BMI result Body Mass Index 35.0 Const: General: comfortable and no acute distress Orientation/consciousness: patient oriented x3 HEENT: Other: Unremarkable Head: Yes normal to inspection Neck: Neck: Yes normal visual inspection Chest: Chest palpation & inspection: normal inspection of the chest Resp: Auscultation: clear to auscultation bilaterally Cardio: Palpation: normal PMI Heart sounds: S1 normal heart sound present, S2 normal heart sound present, no gallops, no murmurs and no rubs GI: Palpation (GI): Soft to palpation Back/Spine/Pelvis: Other: unremarkable Skin: General skin exam: no rashes or lesions noted Neuro: General: patient oriented x3 Extrem: Other: Pneumatic compression stockings present. Psych: Mental Status: mental status grossly normal Objective Labs and Meds Result diagrams: 04/12/22 07:04 04/12/22 07:04 Lab results: Laboratory Results - last 24 hr 04/04/22 04/11/22 04/11/22 13:00 10:25 11:22 WBC RBC Hgb 12.9 Hct 39.1 MCV MCH MCHC RDW Plt Count MPV Immature Gran % (Auto) Neut % (Auto) Lymph % (Auto) [place] % (Auto) Eos % (Auto) Baso % (Auto) Lymph # (Auto) [place] # (Auto) Eos # (Auto) Baso # (Auto) Abs Immat Gran (auto) Absolute Neuts (auto) Absolute Nucleated RBC Nucleated RBC % (auto) Sodium Potassium Chloride Carbon Dioxide Anion Gap BUN Creatinine Estim Creat Clear Calc Estimated GFR Fasting Glucose Calcium COVID-19 ([facility]) Negative COVID-19 Clin Com See Note Crossmatch ([facility]) See Detail 04/12/22 04/12/22 04/12/22 07:04 07:04 07:04 WBC 7.7 RBC 3.40 L Hgb 10.3 L D Hct 31.7 L MCV 93.2 MCH 30.3 MCHC 32.5 RDW 15.3 Plt Count 195 MPV 12.0 Immature Gran % (Auto) 0.4 Neut % (Auto) 66.9 Lymph % (Auto) 15.9 L [place] % (Auto) 16.4 H Eos % (Auto) 0.1 Baso % (Auto) 0.3 Lymph # (Auto) 1.2 [place] # (Auto) 1.3 H Eos # (Auto) 0.0 Baso # (Auto) 0.0 Abs Immat Gran (auto) 0.03 Absolute Neuts (auto) 5.1 Absolute Nucleated RBC 0.000 Nucleated RBC % (auto) 0.0 Sodium 129 L Potassium 3.8 Chloride 99 Carbon Dioxide 25 Anion Gap 9 L BUN 21 H Creatinine 0.90 0.89 Estim Creat Clear Calc 59.2 59.8 Estimated GFR > 60 > 60 Fasting Glucose 116 H Calcium 8.7 D COVID-19 ([facility]) COVID-19 Clin Com Crossmatch ([facility]) ECG Interpretation: EKG from few minutes ago, shows atrial fibrillation with rapid rate at 113/min. In the recent EKG from last week, she was in sinus rhythm at 64/Min. Imaging Radiologist's impression: Impressions Knee X-Ray 04/11/22 17:00 IMPRESSION: Appropriate alignment of the left total knee arthroplasty. Assessment and Plan (1) Atrial fibrillation with rapid ventricular response: Status: Acute (2) Status post total left knee replacement: Status: Acute (3) Essential hypertension: Status: Acute Plan On examination as well as by EKG, she is in atrial fibrillation with slightly rapid rate. Clinically she does not have any symptoms. However, if she continues to be rapid she will probably get symptoms. Hence we will need to get her on telemetry as well as possible. With regard to medications, she used to be on amiodarone but that was stopped as she had ablation for the same. She is only on metoprolol succinate ER 50 mg daily. At this time, we can increase the dose from metoprolol 50 mg to 100 mg in divided doses. We will hold off on amlodipine to avoid lowering blood pressure too much. Otherwise, anticoagulation with Eliquis to be resumed when cleared by surgeon. With regard to definitive planning, may need another cardioversion once she is back on anticoagulation for at least 4 weeks time but to be decided as an outpatient. Will follow up with you. Discussed with Amrita Adams. Procedures Date of Service Date of Service: 04/12/22
--- NOTE | 2022-04-12 13:07 | MHC.CM.PN ---
Addendum entered by Poornima Hernandez 04/13/22 15:43: [facility] CANNOT ARRIVE UNTIL [phone] RN AND HORACIO ASH MADE AWARE Original Note: PATIENT AND DAUGHTER MILAN ([phone]) ACCEPT HORACIO ASH BED OFFER. PLAN IS DC SUNDAY
--- NOTE | 2022-04-12 14:14 | HO.POSTANES ---
Post Anesthesia Evaluation Post Anesthesia Evaluation Vital Signs: Vital Signs Temp Pulse Resp BP Pulse Ox 04/12/22 12:07 84 129/59 L 96 04/12/22 12:00 98.2 F 72 18 149/65 H 96 04/12/22 09:36 84 129/59 L 96 04/12/22 07:57 98.1 F 84 18 129/59 L 96 04/12/22 04:00 98.3 F 81 16 153/57 H 94 Anesthesia: Nerve Block and General Mental Status: Awake Pain Control: Satisfactory Nausea/Vomiting: None Hydration: Adequate Anesthesia-Related Issues: No Anes. Related Issues
[2022-04-12] MEDS: 0.9 % Sodium Chloride Flush 3 ML SYRINGE IVFLUSH ×2 (15:01→20:00)
[2022-04-12] MEDS: Enoxaparin Sodium 40 MG/0.4 ML SYRINGE SUBCUT (15:01)
[2022-04-12] MEDS: Metoprolol Tartrate 50 MG TABLET PO (19:59)
[2022-04-12] MEDS: risperiDONE 0.5 MG TABLET PO (19:59)
[2022-04-13] VITALS: BP 137/57; PULSE 65; RESP 18; TEMP 36.4; O2SAT 95
[2022-04-13 03:44] VITALS: PULSE 64; RESP 16
[2022-04-13 06:25] LABS: MANUAL DIFF FLAG NO
[2022-04-13 06:38] LABS: Basophils Absolute Auto 0.1 X10*3/uL (0.0-0.2); Basophils Percent Auto 0.6 % (0-2); Eosinophils Absolute Auto 0.3 X10*3/uL (0.0-0.4); Eosinophils Percent Auto 3.7 % (0-4); Hematocrit 30.8 % (37.0-47.0); Hemoglobin 10.3 g/dl (12.0-16.0); Imm Gran Abs Auto 0.04 X10*3/uL (0.00-0.03); Imm Gran Pct Auto 0.5 % (0.0-0.4); Lymphocytes Percent Auto 23.9 % (20-40); Mean Corpuscular HGB Conc 33.4 g/dl (31.0-35.0); Mean Corpuscular Hemoglobin 30.8 pg (27.0-33.0); Mean Corpuscular Volume 92.2 fL (80.0-98.0); Mean Platelet Volume 12.1 fL (9.4-12.3); Monocytes Absolute Auto 1.2 X10*3/uL (0.1-1.2); Monocytes Percent Auto 14.6 % (2-11); Neutrophils Absolute Auto 4.8 x10*3/uL (2.0-8.3); Neutrophils Percent Auto 56.7 % (45-73); Platelet Count 192 X10*3/uL (160-400); Red Blood Count 3.34 X10*6/uL (4.20-5.50); Red Cell Distribution Width 15.5 % (11.0-16.0); White Blood Count 8.4 X10*3/uL (4.8-10.8)
[2022-04-13 07:23] LABS: Anion Gap 13 (12-20); Blood Urea Nitrogen 19 mg/dL (9-16); Calcium 9.3 mg/dL (8.4-10.2); Carbon Dioxide 26 mmol/L (22-29); Chloride 104 mmol/L (96-108); Creatinine Clr Calc Pharmacy 55.4; Estimated Glomerular Filt Rate 57; Glucose Fasting 127 mg/dL (60-99); Potassium 4.5 mmol/L (3.3-5.1); Sodium 138 mmol/L (135-145)
[2022-04-13 07:53] VITALS: BP 139/65; PULSE 73; RESP 18; TEMP 36.7; O2SAT 92
[2022-04-13] MEDS: Metoprolol Tartrate 50 MG TABLET PO (08:39)
[2022-04-13] MEDS: Celecoxib 200 MG CAPSULE PO (08:39)
[2022-04-13] MEDS: Docusate Sodium 100 MG CAPSULE PO (08:39)
[2022-04-13] MEDS: 0.9 % Sodium Chloride Flush 3 ML SYRINGE IVFLUSH (08:39)
[2022-04-13] MEDS: oxyCODONE HCl ER 10 MG TAB.ER.12H PO (08:39)
[2022-04-13] MEDS: oxyCODONE HCl Immed Release 5 MG TABLET PO (08:42)
[2022-04-13 09:18] LABS: COVID-19 Test Negative (Negative)
--- NOTE | 2022-04-13 10:30 | HO.PM.IMPN ---
Subjective Subjective Date of Service: 04/13/22 Interval History: seen and examined this morning follow up for consultation no chest pain, shortness of breath no specific complaints at this time Review of Systems Review of Systems: Yes all other systems are reviewed and are negative Constitutional Constitutional: Denies chills and Denies fever(s) Cardiovascular Cardiovascular: Denies chest pain, Denies palpitations and Denies dyspnea Respiratory Respiratory: Denies cough and Denies dyspnea Gastrointestinal Gastrointestinal: Denies abdominal pain, Denies nausea and Denies vomiting Endocrine Endocrine: Denies palpitations Physical Exam Vital Signs: Vital Signs: Last Vital Signs Temp 98.0 F 04/13/22 07:53 Pulse 73 04/13/22 07:53 Resp 18 04/13/22 07:53 BP 139/65 04/13/22 07:53 Pulse Ox 92 04/13/22 07:53 BMI result Body Mass Index 35.0 Const: General: cooperative, comfortable, well developed and alert Nutritional Appearance: average body habitus Orientation/consciousness: patient oriented x3 Resp: Effort & Inspection: normal respiratory effort and able to speak in complete sentences Cardio: Rate: regular rate Heart sounds: S1 normal heart sound present and S2 normal heart sound present Neuro: General: patient oriented x3 Extrem: Other: left knee wrapped in jose bandage Objective Data Active Medications Acetaminophen (Acetaminophen 325 Mg Tablet) 650 mg PO Q6H PRN PRN Reason: Pain, Mild (Pain Scale 1-3) Celecoxib (Celecoxib 200 Mg Capsule) 200 mg PO BID [facility] Last Admin: 04/13/22 08:39 Dose: 200 mg Documented by: SARAH Docusate Sodium (Docusate Sodium 100 Mg Capsule) 100 mg PO BID [facility] Last Admin: 04/13/22 08:39 Dose: 100 mg Documented by: SARAH Enoxaparin Sodium (Enoxaparin Sodium 40 Mg/0.4 Ml Syringe) 40 mg SUBCUT Q24H [facility] Last Admin: 04/12/22 15:01 Dose: 40 mg Documented by: LARFÁTIMA Hydromorphone HCl (Hydromorphone Hcl 0.5 Mg/0.5 Ml Syringe) 0.25 mg IVPUSH Q4H PRN; Protocol PRN Reason: Pain, Severe (Pain Scale 7-10) Metoprolol Tartrate (Metoprolol Tartrate 50 Mg Tablet) 50 mg PO BID [facility]; Protocol Last Admin: 04/13/22 08:39 Dose: 50 mg Documented by: SARAH Ondansetron HCl (Ondansetron Hcl 4 Mg/2 Ml Vial) 4 mg IVPUSH Q8H PRN PRN Reason: Nausea and Vomiting Oxycodone HCl (Oxycodone Hcl Immed Release 5 Mg Tablet) 5 mg PO Q4H PRN PRN Reason: Pain, Moderate (Pain Scale 4-6 Last Admin: 04/13/22 08:42 Dose: 5 mg Documented by: SARAH Oxycodone HCl (Oxycodone Hcl Er 10 Mg Tab.Er.12h) 10 mg PO BID [facility] Last Admin: 04/13/22 08:39 Dose: 10 mg Documented by: SARAH Risperidone (Risperidone 0.5 Mg Tablet) 0.5 mg PO BEDTIME [facility] Last Admin: 04/12/22 19:59 Dose: 0.5 mg Documented by: MONICA Sodium Chloride (0.9 % Sodium Chloride Flush 3 Ml Syringe) 3 ml IVFLUSH QSHIFT [facility] Last Admin: 04/13/22 08:39 Dose: 3 ml Documented by: SARAH Labs CBC & Chem 7: 04/13/22 06:18 04/13/22 06:18 Labs: Laboratory Results - last 24 hr 04/13/22 04/13/22 04/13/22 06:18 06:18 08:48 MCV 92.2 MCH 30.8 MCHC 33.4 RDW 15.5 Plt Count 192 MPV 12.1 Immature Gran % (Auto) 0.5 H Neut % (Auto) 56.7 Lymph % (Auto) 23.9 [place] % (Auto) 14.6 H Eos % (Auto) 3.7 Baso % (Auto) 0.6 Lymph # (Auto) 2.0 [place] # (Auto) 1.2 Eos # (Auto) 0.3 Baso # (Auto) 0.1 Abs Immat Gran (auto) 0.04 H Absolute Neuts (auto) 4.8 Absolute Nucleated RBC 0.000 Nucleated RBC % (auto) 0.0 Anion Gap 13 Estim Creat Clear Calc 55.4 Estimated GFR 57 Fasting Glucose 127 H Calcium 9.3 D COVID-19 ([facility]) Negative COVID-19 Clin Com See Note Assessment and Plan (1) Essential hypertension: Status: Acute Plan 71-year-old woman admitted by Orthopedic surgery and is status post left total knee arthroplasty Left total knee arthroplasty Management as per surgical team Pain management Hyponatremia. Resolved Paroxysmal atrial fibrillation Seen by cardiology, heart rate not at goal, recommended to increase metoprolol to 50 b.i.d. Resume Eliquis once safe from a from surgical perspective. Possible need outpatient cardioversion after 4 weeks of continuous anticoagulation. Should follow up with Cardiology as outpatient. Hypertension. Dose of metoprolol increased as per cardiology recommendation Follow blood pressure closely, can follow-up with PCP to determine need to continue Norvasc Mood Continue medications DVT prophylaxis per surgical team Attending Dr. Ric Cantor Stroke Does the patient have a stroke diagnosis?: No VTE Prior VTE?: Yes VTE Risk Level:: Surgical - high VTE Device Contraindication: N/A - Device Ordered VTE Drug Contraindication: N/A - Med Ordered
[2022-04-13 11:19] VITALS: BP 100/52; PULSE 74; RESP 18; TEMP 36.5; O2SAT 94
--- NOTE | 2022-04-13 11:53 | PM.PNCARD ---
Subjective Subjective Date of Service: 04/13/22 Interval history: She states that she feels okay. No specific complaints. Review of Systems Review of Systems Yes all other systems are reviewed and are negative Constitutional: Reports as per HPI Eyes: Reports as per HPI Reports as per HPI Cardiovascular: Reports as per HPI, Denies acrocyanosis, Denies cool extremities, Denies chest pain, Denies leg edema, Denies lightheadedness, Denies palpitations and Denies dyspnea Respiratory: Reports as per HPI, Reports no additional respiratory complaints and Denies dyspnea Gastrointestinal: Reports as per HPI and Reports no additional gastrointestinal complaints Genitourinary: Reports as per HPI Musculoskeletal: Reports no additional musculoskeletal complaints and Reports as per HPI Skin/Breast: Reports system reviewed and no additional complaints, except as docu Reports system reviewed and no additional complaints, except as documented and Reports as per HPI Psychiatric: Reports no additional psychiatric complaints and Reports as per HPI Endocrine: Reports no additional endocrine complaints, Reports as per HPI and Denies palpitations Hematologic/Lymphatic: Reports no additional hematologic/lymphatic complaints and Reports as per HPI Allergic/Immunologic: Reports no additional allergic/immunologic complaints and Reports as per HPI Physical Exam Vital Signs: Last Vital Signs Temp 97.7 F 04/13/22 11:19 Pulse 74 04/13/22 11:19 Resp 18 04/13/22 11:19 BP 100/52 L 04/13/22 11:19 Pulse Ox 94 04/13/22 11:19 BMI result Body Mass Index 35.0 Const General: comfortable and no acute distress Orientation/consciousness: patient oriented x3 HEENT Other: Unremarkable Head: Yes normal to inspection Neck Neck: Yes normal visual inspection Chest Chest palpation & inspection: normal inspection of the chest Resp Auscultation: clear to auscultation bilaterally Cardio Palpation: normal PMI Heart sounds: S1 normal heart sound present, S2 normal heart sound present, no gallops, no murmurs and no rubs GI Palpation (GI): Soft to palpation Back/Spine/Pelvis Other: unremarkable Skin General skin exam: no rashes or lesions noted Neuro General: patient oriented x3 Extrem General: Yes normal to inspection Psych Mental Status: mental status grossly normal Objective Labs and Meds Result diagrams: 04/13/22 06:18 04/13/22 06:18 Lab results: Laboratory Results - last 24 hr 04/13/22 04/13/22 04/13/22 06:18 06:18 08:48 WBC 8.4 RBC 3.34 L Hgb 10.3 L Hct 30.8 L MCV 92.2 MCH 30.8 MCHC 33.4 RDW 15.5 Plt Count 192 MPV 12.1 Immature Gran % (Auto) 0.5 H Neut % (Auto) 56.7 Lymph % (Auto) 23.9 [place] % (Auto) 14.6 H Eos % (Auto) 3.7 Baso % (Auto) 0.6 Lymph # (Auto) 2.0 [place] # (Auto) 1.2 Eos # (Auto) 0.3 Baso # (Auto) 0.1 Abs Immat Gran (auto) 0.04 H Absolute Neuts (auto) 4.8 Absolute Nucleated RBC 0.000 Nucleated RBC % (auto) 0.0 Sodium 138 Potassium 4.5 Chloride 104 Carbon Dioxide 26 Anion Gap 13 BUN 19 H Creatinine 0.96 Estim Creat Clear Calc 55.4 Estimated GFR 57 Fasting Glucose 127 H Calcium 9.3 D COVID-19 ([facility]) Negative COVID-19 Clin Com See Note Progress Note: A&P Assessment and plan (1) Atrial fibrillation with rapid ventricular response: Status: Acute (2) Status post total left knee replacement: Status: Acute (3) Essential hypertension: Status: Acute Plan Based on telemetry, she was in sinus rhythm for the last several hours but just a couple minutes ago, converted back to atrial fibrillation but with controlled rate. Clinically, she does not have any specific symptoms from this. Beta-ayde dose was increased as today. We can keep her on that. Hold off on amlodipine. Resume anticoagulation when cleared by Orthopedics. With regard to definitive planning, may need another cardioversion once she is back on anticoagulation for at least 4 weeks time but to be decided as an outpatient. Follow-up will be arranged with Dr. Shepherd. Time Spent With Patient Time: Total time spent is greater than 50% in coordination of care (as documented) at patient's floor/unit and/or counseling patient: 30min. Progress Note: Quality Stroke Does the patient have a stroke diagnosis?: No Procedures Date of Service Date of Service: 04/13/22
[2022-04-13] MEDS: Enoxaparin Sodium 40 MG/0.4 ML SYRINGE SUBCUT (13:32)
--- NOTE | 2022-04-13 13:54 | P.DS_ITS ---
DS: Providers Provider Date of Service: 04/13/22 Date of admission: 04/11/22 10:15 Primary care physician: Unknown Physician Consults: 04/11/22 20:09 Consult to Cardiology Routine Consulting Provider: [facility] Cardiovascular Services Reason for consultation: a fib on eliquis Consult to Hospitalist Routine Consulting Provider: Hospitalist Reason For Exam: a fib on eliquis DS: Diagnosis Discharge Diagnosis (1) Status post total left knee replacement: Status: Acute DS: Summary Hospital Course Hospital Course: The patient underwent a successful Left total knee arthroplasty, was transferred to PACU and then to the floor to recover. During their stay, their vitals were stable, afebrile at 97.7 . Labs were unremarkable, H/H 10.3/30.8 . POD 1 she was started on Lovenox for dvt ppx x 48 hours then resume home dose Eliquis for DVT ppx, they also received services twice a day. Prior to discharge, their dressing was change, incision clean dry and intact, new Aquacel dressing applied and the plan was to be discharged to [facility]. Time Spent with Patient Time attestation: Total time spent providing and/or coordinating discharge services: Discharge coordination time: Less than 30 minutes Quality: Safe Use of Opioids Does Pt have an Active Cancer Diagnosis on the Problem List?: No Quality: Stroke Does the patient have a stroke diagnosis?: No Physical Exam Vital Signs: Vital Signs: Last Vital Signs Temp 97.7 F 04/13/22 11:19 Pulse 74 04/13/22 11:19 Resp 18 04/13/22 11:19 BP 100/52 L 04/13/22 11:19 Pulse Ox 94 04/13/22 11:19 BMI result Body Mass Index 35.0 Const: General: cooperative, healthy appearing and no acute distress Resp: Effort & Inspection: normal respiratory effort and able to speak in complete sentences Cardio: Rate: regular rate Peripheral pulses: Peripheral pulses 2+ throughout GI: Palpation (GI): Soft to palpation Skin: General skin exam: no rashes or lesions noted Extrem: Other: incision clean dry and intact. Butler intact. No erythema or joint effusion. Calf supple nontender. Neurovascularly intact. DS: Data Data Completed and Pending Pending studies at discharge: Pending at discharge 04/11/22 14:20 Surgical [PTH] Routine Labs on day of discharge: Laboratory Results - last 24 hr 04/13/22 04/13/22 04/13/22 06:18 06:18 08:48 WBC 8.4 RBC 3.34 L Hgb 10.3 L Hct 30.8 L MCV 92.2 MCH 30.8 MCHC 33.4 RDW 15.5 Plt Count 192 MPV 12.1 Immature Gran % (Auto) 0.5 H Neut % (Auto) 56.7 Lymph % (Auto) 23.9 [place] % (Auto) 14.6 H Eos % (Auto) 3.7 Baso % (Auto) 0.6 Lymph # (Auto) 2.0 [place] # (Auto) 1.2 Eos # (Auto) 0.3 Baso # (Auto) 0.1 Abs Immat Gran (auto) 0.04 H Absolute Neuts (auto) 4.8 Absolute Nucleated RBC 0.000 Nucleated RBC % (auto) 0.0 Sodium 138 Potassium 4.5 Chloride 104 Carbon Dioxide 26 Anion Gap 13 BUN 19 H Creatinine 0.96 Estim Creat Clear Calc 55.4 Estimated GFR 57 Fasting Glucose 127 H Calcium 9.3 D COVID-19 (RAQUEL) Negative COVID-19 Clin Com See Note Discharge Plan Discharge Patient Disposition: Xfer SNF Discharge Diagnosis: LT TKA Referrals: Tere Najera PA-C [Physician Sign Painter Apprentice] - 2 Weeks (04/27/22 2:15 [facility] Orthopedic Surgeons Tere Najera PA-C) Discharge Medications: New oxycodone 5 mg Tablet 5 mg PO Q4H PRN (Reason: Pain, Moderate (Pain Scale 4-6) 7 Days Qty: 42 0RF acetaminophen 325 mg Tablet 650 mg PO Q6H PRN (Reason: Pain, Mild (Pain Scale 1-3)) 30 Days Qty: 20 0RF metoprolol tartrate 50 mg Tablet 50 mg PO BID 30 Days Qty: 60 0RF Protocol: Hold for SBP/HR < HOLD for SBP < : 90 HOLD for HR < : 60 docusate sodium 100 mg Capsule 100 mg PO BID 14 Days Qty: 28 0RF Continued spironolactone 50 mg tablet 50 mg PO DAILY Qty: 90 3RF (AYAN) prakash [facility] [place] See Rx Instructions .MEDSUPPLY Qty: 1 0RF Rx Instructions: Folding Front wheeled walker omega-3 fatty acids Capsule 2,000 mg PO DAILY 0RF glucosamine sulfate 750 mg Tablet 750 mg PO DAILY 0RF celecoxib 200 mg capsule 200 mg PO DAILY 0RF cholecalciferol (vitamin D3) 50 mcg (2,000 unit) tablet 50 mcg PO DAILY 0RF risperidone 0.5 mg tablet 0.5 mg PO DAILY 0RF Eliquis 5 mg tablet 5 mg PO BID 0RF amlodipine 5 mg tablet 5 mg PO BID Qty: 60 2RF Discontinued metoprolol succinate [Toprol XL] 50 mg tablet extended release 24 hr 50 mg PO DAILY Qty: 30 5RF Discharge Orders: Discharge Order (Routine); Ordered 04/13/22 Ordered By: Tere Najera Diet: regular diet Activity on Discharge: Use cane or walker Stand Alone Forms: Patient Portal Discharge page Care Plan Goals: Restore function of joint Health Concerns: none Plan of Treatment: Physical Therapy Pain management DVT prophylaxis Assessment: Physical Therapy for Total knee arthroplasty: WBAT, gait training, ROM 0-12, quad strength * Limit stair climbing * No showering, no tub bath-keep dressing clean, dry and intact * No driving x6 weeks * Resume Eliquis * Follow up with [facility] Orthopedics in 2 weeks: * --you will also have your first out patient PT lyudmila on the day of your post op appt-so please plan on being in the office that day for an extended period of time.
[2022-04-13 16:00] VITALS: BP 137/65; PULSE 86; RESP 18; TEMP 36.6; O2SAT 99
--- NOTE | 2022-04-18 10:22 | P.OP_ITS ---
Operative Note Operative Note Date of Service: 04/11/22 Narrative: Date of Service: 04/11/22 Pre-op diagnosis: Left TKA Post-op diagnosis: same Procedure: Left knee arthroplasty Implants: [employer] Triathalong press fit cruciate retaining Surgeon: Alexy Johnston MD Anesthesia: GETA and regional Was an Stone Setter Apprentice used for this Procedure?: Yes Stone Setter Apprentice: Tere Najera Estimated blood loss (mL): 200 IV fluids (mL): 150 Pathology: other Condition: stable Disposition: PACU Procedure in detail: The patient was brought to the operating room and prepped and draped in standard sterile fashion. A time-out was called to identify proper site proper procedure proper surgeon and IV antibiotics were administered. 1 g of IV tranexamic acid was administered. I began by making a midline incision to the retinaculum and performed a medial parapatellar arthrotomy. The patella was translated laterally and the knee was flexed up. The medial comaprtment was eburnated. I performed a small medial peel and resected the infrapatellar fat pad. Itzel's line was then used to drill my intramedullary femoral guide and my distal femur cut of 10 mm was made in 5 degrees of valgus while protecting the soft tissues. I then measured a # 3 femur and placed my cutting guide and made my anterior posterior and chamfer cuts protecting the soft tissues at all times. Once I was satisfied with my cuts I turned my attention to the tibia. I removed the meniscus medially and laterally and , using an external cutting guide, in line with the tibial crest and the third ray, I made my distal tibial cut in 3 deg slope of while protecting the PCL the posterior soft tissues at all times. An extension block was used to confirm appropriate amount of bony resection. I then sized a #4 tibia and once I was satisfied that there was complete tibial coverage I placed my trial and with the trial femur in place took the knee through range of motion. I was satisfied with the extension and flexion as well as the stability and balance at 0, 30 and 90 degrees. I then turned my attention to the patella where I removed 1 cm from the undersurface of the patella and then trialed a 32a patellar button. Again the knee was taken through range of motion I was satisfied with the tracking. I then returned to the femur and drilled my femoral lug holes and prepared the tibia. A femoral bone plug was placed and the knee was irrigated copiously. I then press fit the patella, tibia and femur in standard fashion. I trialed different inserts until I selected a #9 insert. The final insert was placed and a 3 minutes iodine soak with local TXA was performed. The knee was then closed with a running Quill suture, a 3 0 Vicryl and jodie on the skin. Patient was then placed in sterile dressing and brought to recovery room in stable condition there were no known complications.
== END 2022-04-13 17:00 | disposition skilled nursing facility (03) | DRG 470 ==
LOC: HO.SSSA 10:35 → HO.S3 17:58
PROVIDERS: Admitting Provider Physician Assistant; PCP Internal Medicine; Visit Provider Orthopaedic Surgery
PROC: 0SRD0JA Replacement of Left Knee Joint with Synthetic Substitute, Uncemented, Open Approach (ICD-10-PCS; CPT 27447; principal; 2022-04-11 12:10)
DX: M17.12 Unilateral primary osteoarthritis, left knee (principal); D68.62 Lupus anticoagulant syndrome; E87.1 Hypo-osmolality and hyponatremia; I48.0 Paroxysmal atrial fibrillation; E66.9 Obesity, unspecified; Z68.35 Body mass index [BMI] 35.0-35.9, adult; Z86.718 Personal history of other venous thrombosis and embolism; Z20.822 Contact with and (suspected) exposure to COVID-19; Z79.01 Long term (current) use of anticoagulants; Z79.899 Other long term (current) drug therapy
CPT/HCPCS: 36415; 73560; 80048; 82565; 85014; 85018; 85025; 86850; 86870; 86885; 86900; 86901; 86920; 86922; 87635; 87640; 87641; 88304; 88311; 93005; 97110; 97116; 97162; C1776; J0690; J1170; J1650; J2250; J2370; J2405; J2795; J3010

== ENCOUNTER → 2022-04-27 14:08 | Outpatient (BNVA) | payer MEDICARE, MEDICAID, SELFPAY | PROVIDERS: Visit Provider Physician Assistant | DX: Z47.89 Encounter for other orthopedic aftercare (principal); M17.12 Unilateral primary osteoarthritis, left knee | CPT/HCPCS: 99212 ==

== ENCOUNTER → 2022-05-25 14:22 | Outpatient (BNVA) | payer MEDICARE, MEDICAID, SELFPAY | PROVIDERS: Visit Provider Internal Medicine Cardiovascular Disease | DX: I48.0 Paroxysmal atrial fibrillation (principal); I10 Essential (primary) hypertension | CPT/HCPCS: 93005; 99212 ==

== ENCOUNTER 2022-05-26 07:13 | Outpatient (REF) | payer MEDICARE, MEDICAID, SELFPAY ==
--- NOTE | ~2022-05-26 | XR_ITS ---
EXAMINATION: XR KNEE, STANDING AP, BILATERAL XR KNEE, LEFT CLINICAL INFORMATION: Knee pain. COMPARISON: Standing AP knees 05/16/2021, left knee radiographs 04/11/2022. TECHNIQUE: Standing AP view of both knees is performed along with lateral and axial patella views of the left knee. FINDINGS: Right: Prominent osteoarthritic changes medial and lateral compartments, greater on lateral side with joint narrowing and mild subchondral sclerosis and osteophytes. No visible erosion or definite chondrocalcinosis. No destructive process. Left: There has been prior total knee arthroplasty. The hardware is intact. There is no destructive process or osteolysis. The patella shows lateral tilting and lateralization on the axial view. There is probable small suprapatellar effusion. Lateral view shows a 6 x 9 mm ossification just superior to the patella, possibly loose body in the suprapatellar bursa. XR/XR knee LT 2V IMPRESSION: RIGHT: -Prominent osteoarthritis, greater lateral compartment. LEFT: -Status post total knee arthroplasty. Hardware intact. No destructive process or osteolysis. -Lateral tilting and lateralization patella. Probable suprapatellar effusion. -A 6 x 9 mm ossification on lateral view overlying suprapatellar bursa, possibly loose body.
--- NOTE | ~2022-05-26 | XR_ITS ---
EXAMINATION: XR KNEE, STANDING AP, BILATERAL XR KNEE, LEFT CLINICAL INFORMATION: Knee pain. COMPARISON: Standing AP knees 05/16/2021, left knee radiographs 04/11/2022. TECHNIQUE: Standing AP view of both knees is performed along with lateral and axial patella views of the left knee. FINDINGS: Right: Prominent osteoarthritic changes medial and lateral compartments, greater on lateral side with joint narrowing and mild subchondral sclerosis and osteophytes. No visible erosion or definite chondrocalcinosis. No destructive process. Left: There has been prior total knee arthroplasty. The hardware is intact. There is no destructive process or osteolysis. The patella shows lateral tilting and lateralization on the axial view. There is probable small suprapatellar effusion. Lateral view shows a 6 x 9 mm ossification just superior to the patella, possibly loose body in the suprapatellar bursa. XR/XR knee standing BI IMPRESSION: RIGHT: -Prominent osteoarthritis, greater lateral compartment. LEFT: -Status post total knee arthroplasty. Hardware intact. No destructive process or osteolysis. -Lateral tilting and lateralization patella. Probable suprapatellar effusion. -A 6 x 9 mm ossification on lateral view overlying suprapatellar bursa, possibly loose body.
== END 2022-05-26 07:14 | disposition home or self-care (01) ==
LOC: HO.HOSX 07:13
PROVIDERS: Visit Provider Physician Assistant
DX: M25.562 Pain in left knee (principal)
CPT/HCPCS: 73560; 73565

== ENCOUNTER → 2022-07-06 08:39 | Outpatient (BNVA) | payer MEDICARE, MEDICAID, SELFPAY | PROVIDERS: Visit Provider Orthopaedic Surgery | DX: M79.662 Pain in left lower leg (principal); R60.0 Localized edema; Z96.652 Presence of left artificial knee joint | CPT/HCPCS: 99212 ==

== ENCOUNTER 2022-07-10 15:14 | Outpatient (REF) | payer MEDICARE, MEDICAID, SELFPAY ==
--- NOTE | ~2022-07-10 | US_ITS ---
EXAMINATION: US VENOUS ULTRASOUND WITH DOPPLER LOWER EXTREMITY, LEFT CLINICAL INFORMATION: Left lower extremity swelling/edema. COMPARISON: None TECHNIQUE: Ultrasound of the deep veins is performed from the hip to the calf with compression sonography and color and pulse Doppler assessment. Spectral analysis with color-flow imaging is performed. FINDINGS: There is normal venous compression and respiratory variation and augmented flow. The visualized common femoral vein, superficial femoral vein, profunda femoral vein, popliteal vein, and the trifurcation region shows no evidence of deep venous thrombosis. There is no significant popliteal fossa cyst. If the patient's symptoms persist, followup ultrasound in 5 days 7 days might be of value to exclude proximal propagation from a non-visualized calf vein. Incidental note is made of morphologically normal-appearing left groin lymph nodes showing normal corticomedullary differentiation and normal hilar fat and normal-appearing cortex. Note is also made of multiple varicose vein throughout the left leg. US/US venous duplex LE LT IMPRESSION: No DVT demonstrated in the left lower extremity.
== END 2022-07-10 15:15 | disposition home or self-care (01) ==
LOC: HO.US 15:14
PROVIDERS: Visit Provider Orthopaedic Surgery
DX: R60.0 Localized edema (principal); Z96.652 Presence of left artificial knee joint
CPT/HCPCS: 93971

== ENCOUNTER 2022-09-07 08:23 | Outpatient (REF) | payer MEDICARE, MEDICAID, SELFPAY | END 2022-09-07 08:24 | disposition home or self-care (01) | LOC: CF 08:23 | PROVIDERS: Visit Provider Orthopaedic Surgery | DX: Z47.1 Aftercare following joint replacement surgery (principal); M79.662 Pain in left lower leg; M17.11 Unilateral primary osteoarthritis, right knee; Z96.652 Presence of left artificial knee joint | CPT/HCPCS: 99212 ==

== ENCOUNTER → 2022-11-09 08:39 | Outpatient (BNVA) | payer MEDICARE, MEDICAID, SELFPAY | PROVIDERS: PCP Internal Medicine; Visit Provider Internal Medicine Cardiovascular Disease | DX: Z01.810 Encounter for preprocedural cardiovascular examination (principal); I48.0 Paroxysmal atrial fibrillation; I10 Essential (primary) hypertension | CPT/HCPCS: 93005; 99212 ==

== ENCOUNTER → 2022-11-23 09:30 | Outpatient (BNVA) | payer MEDICARE, MEDICAID, SELFPAY | PROVIDERS: PCP Internal Medicine; Visit Provider Physician Assistant | DX: Z13.89 Encounter for screening for other disorder (principal) | CPT/HCPCS: 99212 ==

== ENCOUNTER 2022-11-29 07:47 | Inpatient (IN) | payer MEDICARE, MEDICAID, SELFPAY ==
[2022-11-15 12:13] VITALS: BP 151/72; PULSE 70; RESP 20; O2SAT 97; BMI 33.6
--- NOTE | 2022-11-15 12:25 | HO.ANESPROP2 ---
Documented by User: Emmie Avelar NP 11/28/22 09:39 HPI - Anesthesia Eval Consult details Narrative: 71yo F for Right Knee Replacement Total Eliquis for afib s/p left TKA 03/2022 with GA-LMA 4, block (rapid afib postop, resolved on own) Cardiac cleared Preoperative cardiovascular risk stratification this elderly woman with limited exercise capacity but negative myocardial perfusion imaging last spring.? She is doing very well from cardiac perspective no new cardiac symptoms at this point time.? She recently underwent left knee replacement surgery.? As long as her hematocrit is normalized prior to surgery I think she is optimized to undergo surgery with low to intermediate risk for perioperative cardiovascular morbidity mortality.? Can hold Eliquis 4 days prior to surgery and resume as soon as possible after surgery.? Continue all her antihypertensive medications in the perioperativ time.? If there are any issues during surgery please consult us. [facility] Active Problems Active Problems: All Active Problems (Updated 09/07/22 @ 08:49 by Adebayo Pham) SOB (shortness of breath) on exertion (Acute) Primary osteoarthritis of left knee (Acute) DVT (deep venous thrombosis) (Chronic) Cellulitis (Acute) Uncontrolled hypertension (Acute) Osteoarthritis of left knee (Acute) Status post total left knee replacement (Acute) Pain of left calf (Acute) Osteoarthritis of right knee (Acute) Paroxysmal atrial fibrillation (Acute) HTN (hypertension) (Acute) Past Medical History Medical History Allergic rhinitis Atrial fibrillation with rapid ventricular response Chronic dyspnea Essential hypertension Generalized anxiety disorder History of cardioversion History of DVT (deep vein thrombosis) HTN (hypertension) Hx of breast cancer Lupus anticoagulant disorder On anticoagulant therapy On beta ayde at home Paroxysmal atrial fibrillation Persistent atrial fibrillation Post laminectomy syndrome Varicose veins of bilateral lower extremities with other complications Family History Family History Father No problems noted. 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 If so, by whom?: No Are you DNR?: No Advance Directives: Yes Advance Directives Information Provided: No Advance Directives on File: Yes Advance Directives Date on File: 04/14/22 Recently lost weight without trying: No Eating poorly because of decreased appetite: No Nutrition Risks: No Nutritional Risk Poor oral hygiene: No (Intact) service: No Current occupational status: retired Narrative Narrative: No recent illness No CP/SOB within limits of pain Meds Allergies Allergy/AdvReac Type Severity Reaction Status Date / Time No Known Allergies Allergy Verified 11/23/22 09:41 [No Known Allergies*] Home Medications Medication Instructions Recorded Confirmed Last Taken Type cholecalciferol (vitamin D3) 50 50 mcg PO DAILY 10/12/20 11/14/22 10/12/21 History mcg (2,000 unit) tablet glucosamine sulfate 750 mg tablet 750 mg PO DAILY 08/17/21 11/14/22 Unknown History omega-3 fatty acids 2,000 mg PO DAILY 08/17/21 11/14/22 Unknown History risperidone 0.5 mg tablet 0.5 mg PO DAILY 10/04/21 11/29/22 10/12/21 History Exam Exam Date and Time: November 15, 2022 1225 Height,Weight and Vital Signs: Height 5 ft 3 in Weight 86.183 kg Last Vital Signs Pulse 70 11/15/22 12:13 Resp 20 11/15/22 12:13 BP 151/72 H 11/15/22 12:13 Pulse Ox 97 11/15/22 12:13 Pertinent Lab Results Pertinent Lab Results: Laboratory Tests 11/15/22 11/15/22 12:48 12:48 WBC 6.2 Hgb 13.3 D Hct 41.4 D Plt Count 234 Sodium 139 Potassium 4.6 Chloride 105 Carbon Dioxide 25 BUN 18 H Creatinine 0.88 Narrative Narrative: EKG 03/2022 normal sinus rhythm with poor R-wave progressions with no acute ST T wave changes ECHO 01/2022 Conclusions: - The left ventricular systolic function is normal.? The ? calculated ejection fraction is 57% by biplane method. ? - Evidence suggests grade II (moderate) diastolic dysfunction. ? - Mildly increased right ventricular cavity size.? - Aortic valve sclerosis but no significant stenosis.? - There is mild mitral annular calcification.? ? NM mary perf SPECT rest & str 02/2022 Impression: ? 1.? Myocardial perfusion imaging study shows normal myocardial perfusion 2.? Gated LVEF is 60% 3. Transient ischemic dilatation not present ? EKG is nondiagnostic for ischemia Airway Mallampati Class: III TM Dist: >3cm Neck ROM: Full Loose/Missing/Broken Teeth: Yes (Chipped) Heart: Irregular Lungs: CTAB Assessment and Plan Assessment Anesthesia Assessment: Anesthesia Plan Discussed and PAT Visit Final Anesthetic Review Family History of Problems with Anesthesia: No History of Problems with Anesthesia: No Documented by User: Janny Guerrier MD 11/29/22 09:01 [facility] Past Medical History Medical History Allergic rhinitis Atrial fibrillation with rapid ventricular response Chronic dyspnea Essential hypertension Generalized anxiety disorder History of cardioversion History of DVT (deep vein thrombosis) HTN (hypertension) Hx of breast cancer Lupus anticoagulant disorder On anticoagulant therapy On beta ayde at home Paroxysmal atrial fibrillation Persistent atrial fibrillation Post laminectomy syndrome Varicose veins of bilateral lower extremities with other complications Family History Family History Father No problems noted. 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 If so, by whom?: No Are you DNR?: No Advance Directives: Yes Advance Directives Information Provided: No Advance Directives on File: Yes Advance Directives Date on File: 04/14/22 Recently lost weight without trying: No Eating poorly because of decreased appetite: No Nutrition Risks: No Nutritional Risk Poor oral hygiene: No (Intact) service: No Current occupational status: retired [employer] Allergies Allergy/AdvReac Type Severity Reaction Status Date / Time No Known Allergies Allergy Verified 11/23/22 09:41 [No Known Allergies*] Home Medications Medication Instructions Recorded Confirmed Last Taken Type cholecalciferol (vitamin D3) 50 50 mcg PO DAILY 10/12/20 11/14/22 10/12/21 History mcg (2,000 unit) tablet glucosamine sulfate 750 mg tablet 750 mg PO DAILY 08/17/21 11/14/22 Unknown History omega-3 fatty acids 2,000 mg PO DAILY 08/17/21 11/14/22 Unknown History risperidone 0.5 mg tablet 0.5 mg PO DAILY 10/04/21 11/29/22 10/12/21 History Exam Narrative Narrative: EKG 03/2022 normal sinus rhythm with poor R-wave progressions with no acute ST T wave changes ECHO 01/2022 Conclusions: - The left ventricular systolic function is normal.? The ? calculated ejection fraction is 57% by biplane method. ? - Evidence suggests grade II (moderate) diastolic dysfunction. ? - Mildly increased right ventricular cavity size.? - Aortic valve sclerosis but no significant stenosis.? - There is mild mitral annular calcification.? ? NM mary perf SPECT rest & str 02/2022 Impression: ? 1.? Myocardial perfusion imaging study shows normal myocardial perfusion 2.? Gated LVEF is 60% 3. Transient ischemic dilatation not present ? EKG is nondiagnostic for ischemia Airway Heart: rrr Assessment and Plan Final Anesthetic Review NPO: Yes ASA Class: III Final Preanesthetic Review: No Changes in Pt Med Stat, Meds/Allgs Chart Reviewed and Consent Obtained/Reviewed Patient Risk: Intermediate Procedure Risk: Intermediate Anesthetic Plan Anesthetic Plan: GA and Regional Block (Right adductor cannal) Disposition: Standard PACU
[2022-11-15 12:52] LABS: MANUAL DIFF FLAG NO
[2022-11-15 13:30] LABS: Basophils Percent Auto 0.6 % (0-2); Eosinophils Absolute Auto 0.1 X10*3/uL (0.0-0.4); Eosinophils Percent Auto 1.1 % (0-4); Hematocrit 41.4 % (37.0-47.0); Hemoglobin 13.3 g/dl (12.0-16.0); Imm Gran Abs Auto 0.01 X10*3/uL (0.00-0.03); Imm Gran Pct Auto 0.2 % (0.0-0.4); Lymphocytes Percent Auto 32.7 % (20-40); Mean Corpuscular HGB Conc 32.1 g/dl (31.0-35.0); Mean Corpuscular Hemoglobin 30.2 pg (27.0-33.0); Mean Corpuscular Volume 94.1 fL (80.0-98.0); Mean Platelet Volume 12.2 fL (9.4-12.3); Monocytes Absolute Auto 0.9 X10*3/uL (0.1-1.2); Neutrophils Absolute Auto 3.1 x10*3/uL (2.0-8.3); Neutrophils Percent Auto 50.4 % (45-73); Platelet Count 234 X10*3/uL (160-400); Red Cell Distribution Width 14.6 % (11.0-16.0); White Blood Count 6.2 X10*3/uL (4.8-10.8)
[2022-11-15 13:42] LABS: Anion Gap 14 (12-20); Blood Urea Nitrogen 18 mg/dL (9-16); Carbon Dioxide 25 mmol/L (22-29); Chloride 105 mmol/L (96-108); Creatinine Clr Calc Pharmacy 59.2; Estimated Glomerular Filt Rate > 60; Potassium 4.6 mmol/L (3.3-5.1); Sodium 139 mmol/L (135-145)
[2022-11-15 15:09] LABS: MRSA Nasal PCR NEGATIVE (Negative); SA Nasal PCR POSITIVE (Negative)
[2022-11-29] VITALS (17 sets, daily range): BP systolic 123–185; BP diastolic 56–82; PULSE 66–96; RESP 12–20; TEMP 36.1–37.1; O2SAT 93–100
--- NOTE | ~2022-11-29 | XR_ITS ---
EXAMINATION: XR KNEE, RIGHT CLINICAL INFORMATION: Postop. COMPARISON: 05/26/2022 and 04/11/2022. TECHNIQUE: AP and lateral views of the right knee. FINDINGS: AP and lateral postoperative views of the right knee performed. Prosthetic components appear in good position. No acute fracture or dislocation is evident. Some gas is seen about the surgical sites. There appears to be a small right knee effusion. Anterior staple line noted. XR/XR knee RT 2V IMPRESSION: Satisfactory postoperative appearance of the right knee status post arthroplasty.
--- NOTE | 2022-11-29 07:50 | PHA.MEDREC ---
Pharmacy Consult ? Medication Reconciliation Pharmacy has completed the medication reconciliation. Reviewed med rec done by nursing
[2022-11-29 08:04] LABS: COVID-19 Test Negative (Negative); IDNOW Serial# 16C4AD1C
[2022-11-29 08:08] LABS: Hematocrit 41.2 % (37.0-47.0); Hemoglobin 13.4 g/dl (12.0-16.0)
[2022-11-29] MEDS: Lactated Ringers 1,000 ML 100 ML IVCONT ×3 (10:04→23:30)
--- NOTE | 2022-11-29 10:12 | PC.NURSE ---
MD DAMON AWARE OF THE BILATERAL LOWER LEG REDNESS. OKAY TO PROCEED.
--- NOTE | 2022-11-29 10:32 | MHC.SHP ---
Pre-Procedural Eval Section A Date of Service: 11/29/22 The patient is an INPATIENT: No Changes since office visit: Yes Patient answered all questions; No Cold of Flu in the past 2 weeks, No New Medical Problems and No Changes in Medication The History & Physical has been completed within 30 days and I have reviewed it.: Yes Section B Chief Complaint: Unilateral primary osteoarthritis, right knee Allergies: Allergies Allergy/AdvReac Type Severity Reaction Status Date / Time No Known Allergies Allergy Verified 11/23/22 09:41 [No Known Allergies*] Plan I have reviewed the history and physical and performed a pertinent physical examination on my patient. No changes have occurred unless specified. Time Spent With Patient Time: Total time managing care of this patient today ____ minutes.
--- NOTE | 2022-11-29 11:49 | P.BOP_ITS ---
Brief Operative Note Date of Service: 11/29/22 Pre-op diagnosis: Right knee OA Post-op diagnosis: same Procedure: Right TKA Implants: Cristóbal Triathlon press fit cruciate retaining Surgeon: Alexy Johnston MD Anesthesia: GETA, regional and local Was an Principal Associate used for this Procedure?: No Estimated blood loss (mL): 200 IV fluids (mL): 1,000 Pathology: other Condition: stable Disposition: PACU
--- NOTE | 2022-11-29 11:52 | P.OP_ITS ---
Operative Note Operative Note Date of Service: 11/29/22 Narrative: Date of Service: 11/29/22 Pre-op diagnosis: Right knee OA Post-op diagnosis: same Procedure: Right TKA Implants: [place] Triathlon press fit cruciate retaining Surgeon: Alexy Johnston MD Anesthesia: GETA, regional and local Was an Pumper Gauger Apprentice used for this Procedure?: No Estimated blood loss (mL): 200 IV fluids (mL): 1,000 Pathology: other Condition: stable Disposition: PACU Procedure in detail: The patient was brought to the operating room and prepped and draped in standard sterile fashion. A time-out was called to identify proper site proper procedure proper surgeon and IV antibiotics were administered. 1 g of IV tranexamic acid was administered. I began by making a midline incision to the retinaculum and performed a medial parapatellar arthrotomy. The patella was translated laterally and the knee was flexed up. The lateral comprtment was eburnated ewspecially the tibial plateau and the medial as well but less so.in the tibia and more in the MFC. I performed a small medial peel and resected the infrapatellar fat pad. Itzel's line was then used to drill my intramedullary femoral guide and my distal femur cut of 12 mm (10deg flexion contracture) was made in 5 degrees of valgus while protecting the soft tissues. I then measured a # 3 femur and placed my cutting guide and made my anterior posterior and chamfer cuts protecting the soft tissues at all times in 3 deg or rotation. Once I was satisfied with my cuts I turned my attention to the tibia. I removed the meniscus medially and laterally and , using an external cutting guide, in line with the tibial crest and the third ray, I made my distal tibial cut in 3 deg slope of while protecting the PCL the posterior soft tissues at all times. An extension block was used to confirm appropriate amount of bony resection. I then sized a #4 tibia and once I was satisfied that there was complete tibial coverage I placed my trial and with the trial femur in place took the knee through range of motion. I was satisfied with the extension and flexion as well as the stability and balance at 0, 30 and 90 degrees. I then turned my attention to the patella where I removed 1 cm from the undersurface of the patella and then trialed a 32a patellar button. Again the knee was taken through range of motion I was satisfied with the tracking. I then returned to the femur and drilled my femoral lug holes and prepared the tibia. A femoral bone plug was placed and the knee was irrigated copiously. I then press fit the patella, tibia and femur in standard fashion. I trialed different inserts until I selected a #9 insert. The final insert was placed and a 3 minutes iodine soak with local TXA was performed. A Werewolf cautery wand was used to maintain hemostasis over the capsule and meniscal beds, the gutters and peripatellar soft tissues. The knee was then closed with a running Quill suture, a 3 0 Vicryl and jodie on the skin. Patient was then placed in sterile dressing and brought to recovery room in stable condition there were no known complications.
[2022-11-29] MEDS: fentaNYL citrate/PF 100 MCG/2 ML VIAL 50 MCG IVPUSH ×2 (12:20→13:39)
[2022-11-29] MEDS: oxyCODONE HCl Immed Release 5 MG TABLET PO (12:54)
[2022-11-29] MEDS: Acetaminophen 1,000 MG/100 ML PIGGYBACK 400 MG IV (12:54)
--- NOTE | 2022-11-29 15:24 | HO.PM.IMCN ---
History of Present Illness Data of Consult Service Date: 11/29/22 Requesting physician: Alexy Johnston Primary Care Provider: Juana Moran MD HPI 71 year old women with history of hypertension, atrial fibrillation admitted to Orthopedic surgery and is status post right total knee arthroplasty. Surgery was unremarkable. Patient denies any pain. She has been able to eat and drink without any trouble. Her vital signs are stable. Consultation was placed. Review of Systems Review of Systems: Denies any recent fever chills or decrease in appetite respiratory denies any shortness of breath coverage production cardiovascular denied chest pain gastrointestinal denies any dysphagia abdominal pain nausea vomiting or diarrhea genitourinary denies any dysuria frequency or hematuria musculoskeletal denies any joint pain or swelling neuropsych denies any weakness or seizures all other systems reviewed are negative [facility] Medical History (Updated 11/29/22 @ 16:02 by Amrita Adams NP) Allergic rhinitis Chronic dyspnea Essential hypertension Generalized anxiety disorder History of cardioversion History of DVT (deep vein thrombosis) HTN (hypertension) Hx of breast cancer Lupus anticoagulant disorder Paroxysmal atrial fibrillation Post laminectomy syndrome Varicose veins of bilateral lower extremities with other complications Family History Father No problems noted. 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 If so, by whom?: No Are you DNR?: No Advance Directives: Yes Advance Directives Information Provided: No Advance Directives on File: Yes Advance Directives Date on File: 04/14/22 Recently lost weight without trying: No Eating poorly because of decreased appetite: No Nutrition Risks: No Nutritional Risk Poor oral hygiene: No (Intact) service: No Current occupational status: retired Meds Allergies Allergy/AdvReac Type Severity Reaction Status Date / Time No Known Allergies Allergy Verified 11/23/22 09:41 [No Known Allergies*] Active Medications: Current Medications Acetaminophen (Acetaminophen 325 Mg Tablet) 650 mg PO ONCE PRN PRN Reason: Pain, Mild (Pain Scale 1-3) Acetaminophen (Acetaminophen 325 Mg Tablet) 650 mg PO ONCE PRN PRN Reason: Pain, Mild (Pain Scale 1-3) Acetaminophen (Acetaminophen 325 Mg Tablet) 650 mg PO Q6H PRN PRN Reason: Pain, Mild (Pain Scale 1-3) Al Hydroxide/Mg Hydroxide (Magnesium Hydrox/Alum Hydrox 30 Ml Oral.Susp) 30 ml PO Q4H PRN PRN Reason: Heartburn/Nausea Apixaban (Apixaban 5 Mg Tablet) 5 mg PO BID [facility] Celecoxib (Celecoxib 200 Mg Capsule) 200 mg PO BID [facility] Fentanyl (Fentanyl Citrate/Pf 100 Mcg/2 Ml Vial) 50 mcg IVPUSH Q5M PRN; Protocol PRN Reason: Pain, Severe (Pain Scale 7-10) Last Admin: 11/29/22 13:39 Dose: 50 mcg Fentanyl (Fentanyl Citrate/Pf 100 Mcg/2 Ml Vial) 50 mcg IVPUSH Q5M PRN; Protocol PRN Reason: Pain, Severe (Pain Scale 7-10) Hydromorphone HCl (Hydromorphone Hcl 0.5 Mg/0.5 Ml Syringe) 0.25 mg IVPUSH Q5M PRN; Protocol PRN Reason: Pain, Severe (Pain Scale 7-10) Hydromorphone HCl (Hydromorphone Hcl 0.5 Mg/0.5 Ml Syringe) 0.25 mg IVPUSH Q5M PRN; Protocol PRN Reason: Pain, Severe (Pain Scale 7-10) Hydromorphone HCl (Hydromorphone Hcl 0.5 Mg/0.5 Ml Syringe) 0.25 mg IVPUSH Q4H PRN; Protocol PRN Reason: Pain, Severe (Pain Scale 7-10) Lactated Ringer's (Lr) 1,000 mls @ 100 mls/hr IVCONT .Q10H [facility] Last Infusion: 11/29/22 14:10 Dose: Infused Promethazine HCl 12.5 mg/ (Sodium Chloride) 50.5 mls @ 202 mls/hr IV ONCE PRN PRN Reason: Nausea and Vomiting Promethazine HCl 12.5 mg/ (Sodium Chloride) 50.5 mls @ 202 mls/hr IV ONCE PRN PRN Reason: Nausea and Vomiting Lactated Ringer's (Lr) 1,000 mls @ 100 mls/hr IVCONT .Q10H [facility] Last Admin: 11/29/22 14:10 Dose: 100 mls/hr Cefazolin Sodium/Dextrose (Ancef) 2 gm in 50 mls @ 100 mls/hr IV POSTOP ONE Stop: 11/29/22 17:29 Magnesium Hydroxide (Milk Of Magnesia 30 Ml Oral.Susp) 30 ml PO DAILY PRN PRN Reason: Constipation Ondansetron HCl (Ondansetron Hcl 4 Mg/2 Ml Vial) 4 mg IVPUSH Q8H PRN PRN Reason: Nausea and Vomiting Oxycodone HCl (Oxycodone Hcl Immed Release 5 Mg Tablet) 10 mg PO Q4H PRN PRN Reason: Pain, Moderate (Pain Scale 4-6 Oxycodone HCl (Oxycodone Hcl Er 10 Mg Tab.Er.12h) 10 mg PO BID [facility] Senna (Sennosides 8.6 Mg Tablet) 17.2 mg PO BEDTIME PRN PRN Reason: Constipation Sodium Chloride (0.9 % Sodium Chloride Flush 3 Ml Syringe) 3 ml IVFLUSH QSHIFT [facility] Home Medications Medication Instructions Recorded Confirmed Last Taken Type cholecalciferol (vitamin D3) 50 50 mcg PO DAILY 10/12/20 11/14/22 10/12/21 History mcg (2,000 unit) tablet glucosamine sulfate 750 mg tablet 750 mg PO DAILY 08/17/21 11/14/22 Unknown History omega-3 fatty acids 2,000 mg PO DAILY 08/17/21 11/14/22 11/22/22 History risperidone 0.5 mg tablet 0.5 mg PO DAILY 10/04/21 11/29/22 10/12/21 History Physical Exam Vital Signs and Narrative: Vital Signs: Last Vital Signs Temp 97 F 11/29/22 14:15 Pulse 81 11/29/22 14:15 Resp 12 11/29/22 14:15 BP 144/56 H 11/29/22 14:15 Pulse Ox 98 11/29/22 14:15 O2 Del Method 11/29/22 14:15 O2 Flow Rate 2 11/29/22 14:15 BMI result Body Mass Index 33.6 Appearing in no acute distress head is normocephalic atraumatic eyes pupils are PERRLA sclera is anicteric mouth throat mucous membranes are intact and moist neck is supple no lymphadenopathy, no JVD noted lung sounds are clear to auscultation heart regular rate rhythm, clear S1, S2 positive bowel sounds, abdomen is soft, nontender neuro patient is alert x3, no focal deficits Right knee surgical dressing intact, surgical incision not visualized Results Labs CBC and Chem 7: 11/29/22 07:58 11/15/22 12:48 Labs: Laboratory Results - last 24 hr 11/29/22 07:43 COVID-19 ([facility]) Negative COVID-19 Clin Com See Note Assessment and Plan (1) Primary osteoarthritis of left knee: Status: Acute Plan 71 year old women s/p right knee TKA Right total knee arthroplasty Management as per surgical team pain management HTN stable BP continue home medications Persistent atrial fibrillation, no RVR Hold Apixaban for now continue BB Attending Dr. Issa DVT prophylaxis as per admitting team Full code Time Spent With Patient Time: Total time managing care of this patient today ____ minutes.
[2022-11-29] MEDS: HYDROmorphone HCl 0.5 MG/0.5 ML SYRINGE 0.25 MG IVPUSH (15:40)
[2022-11-29] MEDS: 0.9 % Sodium Chloride Flush 3 ML SYRINGE IVFLUSH ×2 (15:42→19:57)
[2022-11-29] MEDS: ondansetron HCL 4 MG/2 ML VIAL IVPUSH (18:11)
[2022-11-29] MEDS: ceFAZolin Sodium/Dextrose,Iso 2 GM/50 ML PIGGYBACK IV (18:11)
[2022-11-29] MEDS: amLODIPine Besylate 5 MG TABLET PO (19:56)
[2022-11-29] MEDS: oxyCODONE HCl ER 10 MG TAB.ER.12H PO (19:56)
[2022-11-29] MEDS: Metoprolol Tartrate 50 MG TABLET PO (19:57)
[2022-11-29] MEDS: Celecoxib 200 MG CAPSULE PO (19:57)
[2022-11-30] VITALS (8 sets, daily range): BP systolic 100–143; BP diastolic 49–68; PULSE 64–74; RESP 12–18; TEMP 36.3–37.2; O2SAT 92–97
[2022-11-30] MEDS: HYDROmorphone HCl 0.5 MG/0.5 ML SYRINGE 0.25 MG IVPUSH (02:50)
[2022-11-30] MEDS: Lactated Ringers 1,000 ML 100 ML IVCONT ×4 (04:12→18:19)
[2022-11-30 06:23] LABS: Basophils Percent Auto 0.1 % (0-2); Hematocrit 31.7 % (37.0-47.0); Hemoglobin 10.4 g/dl (12.0-16.0); Imm Gran Abs Auto 0.05 X10*3/uL (0.00-0.03); Imm Gran Pct Auto 0.5 % (0.0-0.4); Lymphocytes Absolute Auto 1.5 X10*3/uL (1.2-4.9); Lymphocytes Percent Auto 13.5 % (20-40); MANUAL DIFF FLAG SCAN; Mean Corpuscular HGB Conc 32.8 g/dl (31.0-35.0); Mean Corpuscular Hemoglobin 30.3 pg (27.0-33.0); Mean Corpuscular Volume 92.4 fL (80.0-98.0); Monocytes Absolute Auto 1.6 X10*3/uL (0.1-1.2); Monocytes Percent Auto 14.7 % (2-11); Neutrophils Absolute Auto 7.9 x10*3/uL (2.0-8.3); Neutrophils Percent Auto 71.2 % (45-73); Platelet Count 246 X10*3/uL (160-400); Red Blood Count 3.43 X10*6/uL (4.20-5.50); Red Cell Distribution Width 14.1 % (11.0-16.0); SCAN SMEAR FLAG 1
[2022-11-30 06:48] LABS: SLIDE REVIEW VERIFIED
[2022-11-30 07:20] LABS: Anion Gap 13 (12-20); Blood Urea Nitrogen 17 mg/dL (9-16); Calcium 8.5 mg/dL (8.4-10.2); Carbon Dioxide 24 mmol/L (22-29); Chloride 107 mmol/L (96-108); Creatinine Clr Calc Pharmacy 75.5; Estimated Glomerular Filt Rate > 60; Glucose Fasting 117 mg/dL (60-99); Potassium 5.1 mmol/L (3.3-5.1); Sodium 139 mmol/L (135-145)
[2022-11-30] MEDS: oxyCODONE HCl Immed Release 5 MG TABLET 10 MG PO ×4 (07:39→21:52)
[2022-11-30] MEDS: Cholecalciferol (Vitamin D3) 25 MCG TABLET 50 MCG PO (07:40)
[2022-11-30] MEDS: amLODIPine Besylate 5 MG TABLET PO ×2 (07:40→21:00)
[2022-11-30] MEDS: risperiDONE 0.5 MG TABLET PO (07:40)
[2022-11-30] MEDS: Celecoxib 200 MG CAPSULE PO ×2 (07:40→21:01)
[2022-11-30] MEDS: Spironolactone 25 MG TABLET 50 MG PO (07:41)
[2022-11-30] MEDS: Apixaban 5 MG TABLET PO (07:41)
[2022-11-30] MEDS: 0.9 % Sodium Chloride Flush 3 ML SYRINGE IVFLUSH (07:41)
[2022-11-30] MEDS: Metoprolol Tartrate 50 MG TABLET PO ×2 (07:41→21:00)
--- NOTE | 2022-11-30 08:31 | P.PNOP_ITS ---
Subjective Subjective Date of Service: 11/30/22 Interval history: Pod 1 s/p LT TKA no overnight events resting comfortably in chair, worked with PT no concerns, denies cp,palpitations, sob Physical Exam Vital Signs: Vital Signs: Last Vital Signs Temp 97.3 F 11/30/22 03:00 Pulse 69 11/30/22 03:00 Resp 16 11/30/22 03:00 BP 134/60 11/30/22 03:00 Pulse Ox 93 11/30/22 03:00 O2 Del Method 11/30/22 03:00 O2 Flow Rate 2 11/29/22 14:15 BMI result Body Mass Index 33.6 Const: General: cooperative, healthy appearing and no acute distress Resp: Effort & Inspection: normal respiratory effort and able to speak in complete sentences Cardio: Rate: regular rate Peripheral pulses: Peripheral pulses 2+ throughout GI: Palpation (GI): Soft to palpation Skin: General skin exam: no rashes or lesions noted Extrem: Other: bandage clean dry and intact. Kelly intact. No erythema or joint effusion. ROM 5-90 Calf supple nontender. Neurovascularly intact. Procedures Date of Service Date of Service: 11/30/22 Progress Note: A&P Assessment and plan (1) Status post total right knee replacement: Status: Acute Assessment and Plan: * Continue pain mgmnt * Begin Eliquis once a day and resume bid tomorrow * Dispo planning-Pending PT eval, pain mgmnt Time Spent With Patient Time: Total time managing care of this patient today ____ minutes. Quality Stroke Does the patient have a stroke diagnosis?: No VTE Prior VTE?: Yes VTE Risk Level:: Surgical - very high VTE Device Contraindication: N/A - Device Ordered VTE Drug Contraindication: N/A - Med Ordered
[2022-11-30] MEDS: oxyCODONE HCl ER 10 MG TAB.ER.12H PO ×2 (09:38→20:58)
[2022-11-30] MEDS: Acetaminophen 325 MG TABLET 650 MG PO ×2 (09:38→21:05)
--- NOTE | 2022-11-30 09:44 | HO.PM.IMPN ---
Subjective Subjective Date of Service: 11/30/22 Interval History: seen and examined this morning follow up for consultation no chest pain, shortness of breath no specific complaints at this time Review of Systems Review of Systems: Yes all other systems are reviewed and are negative Constitutional Constitutional: Denies chills and Denies fever(s) Cardiovascular Cardiovascular: Denies chest pain, Denies palpitations and Denies dyspnea Respiratory Respiratory: Denies cough and Denies dyspnea Gastrointestinal Gastrointestinal: Denies abdominal pain, Denies nausea and Denies vomiting Endocrine Endocrine: Denies palpitations Physical Exam Vital Signs: Vital Signs: Last Vital Signs Temp 97.8 F 11/30/22 08:00 Pulse 74 11/30/22 08:00 Resp 18 11/30/22 08:00 BP 127/58 L 11/30/22 08:00 Pulse Ox 97 11/30/22 08:00 O2 Del Method 11/30/22 08:00 O2 Flow Rate 2 11/29/22 14:15 BMI result Body Mass Index 33.6 Appearing in no acute distress lung sounds are clear to auscultation heart regular rate rhythm, clear S1, S2 positive bowel sounds, abdomen is soft, nontender neuro patient is alert x3, no focal deficits right knee surgical dressing intact, wound not visualized Objective Data Active Medications Acetaminophen (Acetaminophen 325 Mg Tablet) 650 mg PO ONCE PRN PRN Reason: Pain, Mild (Pain Scale 1-3) Acetaminophen (Acetaminophen 325 Mg Tablet) 650 mg PO ONCE PRN PRN Reason: Pain, Mild (Pain Scale 1-3) Acetaminophen (Acetaminophen 325 Mg Tablet) 650 mg PO Q6H PRN PRN Reason: Pain, Mild (Pain Scale 1-3) Last Admin: 11/30/22 09:38 Dose: 650 mg Documented By: DANIELE Al Hydroxide/Mg Hydroxide (Magnesium Hydrox/Alum Hydrox 30 Ml Oral.Susp) 30 ml PO Q4H PRN PRN Reason: Heartburn/Nausea Amlodipine Besylate (Amlodipine Besylate 5 Mg Tablet) 5 mg PO BID [facility]; Protocol Last Admin: 11/30/22 07:40 Dose: 5 mg Documented By: DANIELE Apixaban (Apixaban 5 Mg Tablet) 5 mg PO BID [facility] Last Admin: 11/30/22 07:41 Dose: 5 mg Documented By: DANIELE Celecoxib (Celecoxib 200 Mg Capsule) 200 mg PO BID [facility] Last Admin: 11/30/22 07:40 Dose: 200 mg Documented By: DANIELE Enoxaparin Sodium (Enoxaparin Sodium 40 Mg/0.4 Ml Syringe) 40 mg SUBCUT Q24H [facility] Last Admin: 11/30/22 09:40 Dose: Not Given Documented By: DANIELE Non-Admin Reason: Patient Refused Fentanyl (Fentanyl Citrate/Pf 100 Mcg/2 Ml Vial) 50 mcg IVPUSH Q5M PRN; Protocol PRN Reason: Pain, Severe (Pain Scale 7-10) Last Admin: 11/29/22 13:39 Dose: 50 mcg Documented By: DANIELLE Fentanyl (Fentanyl Citrate/Pf 100 Mcg/2 Ml Vial) 50 mcg IVPUSH Q5M PRN; Protocol PRN Reason: Pain, Severe (Pain Scale 7-10) Hydromorphone HCl (Hydromorphone Hcl 0.5 Mg/0.5 Ml Syringe) 0.25 mg IVPUSH Q5M PRN; Protocol PRN Reason: Pain, Severe (Pain Scale 7-10) Hydromorphone HCl (Hydromorphone Hcl 0.5 Mg/0.5 Ml Syringe) 0.25 mg IVPUSH Q5M PRN; Protocol PRN Reason: Pain, Severe (Pain Scale 7-10) Hydromorphone HCl (Hydromorphone Hcl 0.5 Mg/0.5 Ml Syringe) 0.25 mg IVPUSH Q4H PRN; Protocol PRN Reason: Pain, Severe (Pain Scale 7-10) Last Admin: 11/30/22 02:50 Dose: 0.25 mg Documented By: TRAE Lactated Ringer's (Lr) 1,000 mls @ 100 mls/hr IVCONT .Q10H [facility] Last Infusion: 11/30/22 09:35 Dose: 100 mls/hr Documented By: DANIELE Promethazine HCl 12.5 mg/ (Sodium Chloride) 50.5 mls @ 202 mls/hr IV ONCE PRN PRN Reason: Nausea and Vomiting Promethazine HCl 12.5 mg/ (Sodium Chloride) 50.5 mls @ 202 mls/hr IV ONCE PRN PRN Reason: Nausea and Vomiting Lactated Ringer's (Lr) 1,000 mls @ 100 mls/hr IVCONT .Q10H [facility] Last Infusion: 11/30/22 09:34 Dose: 100 mls/hr Documented By: DANIELE Magnesium Hydroxide (Milk Of Magnesia 30 Ml Oral.Susp) 30 ml PO DAILY PRN PRN Reason: Constipation Metoprolol Tartrate (Metoprolol Tartrate 50 Mg Tablet) 50 mg PO BID [facility]; Protocol Last Admin: 11/30/22 07:41 Dose: 50 mg Documented By: DANIELE Ondansetron HCl (Ondansetron Hcl 4 Mg/2 Ml Vial) 4 mg IVPUSH Q8H PRN PRN Reason: Nausea and Vomiting Last Admin: 11/29/22 18:11 Dose: 4 mg Documented By: KIRSTEN Oxycodone HCl (Oxycodone Hcl Immed Release 5 Mg Tablet) 10 mg PO Q4H PRN PRN Reason: Pain, Moderate (Pain Scale 4-6 Last Admin: 11/30/22 07:39 Dose: 10 mg Documented By: DANIELE Oxycodone HCl (Oxycodone Hcl Er 10 Mg Tab.Er.12h) 10 mg PO BID [facility] Last Admin: 11/29/22 19:56 Dose: 10 mg Documented By: SERGEORALDeny Risperidone (Risperidone 0.5 Mg Tablet) 0.5 mg PO DAILY [facility] Last Admin: 11/30/22 07:40 Dose: 0.5 mg Documented By: DANIELE Senna (Sennosides 8.6 Mg Tablet) 17.2 mg PO BEDTIME PRN PRN Reason: Constipation Sodium Chloride (0.9 % Sodium Chloride Flush 3 Ml Syringe) 3 ml IVFLUSH QSHIFT [facility] Last Admin: 11/30/22 07:41 Dose: 3 ml Documented By: DANIELE Spironolactone (Spironolactone 25 Mg Tablet) 50 mg PO DAILY [facility]; Protocol Last Admin: 11/30/22 07:41 Dose: 50 mg Documented By: DANIELE Vitamin D (Cholecalciferol (Vitamin D3) 25 Mcg Tablet) 50 mcg PO DAILY [facility] Last Admin: 11/30/22 07:40 Dose: 50 mcg Documented By: DANIELE Labs CBC & Chem 7: 11/30/22 05:24 11/30/22 05:24 Labs: Laboratory Results - last 24 hr 11/30/22 11/30/22 05:24 05:24 MCV 92.4 MCH 30.3 MCHC 32.8 RDW 14.1 Plt Count 246 MPV 12.0 Immature Gran % (Auto) 0.5 H Neut % (Auto) 71.2 Lymph % (Auto) 13.5 L [place] % (Auto) 14.7 H Eos % (Auto) 0.0 Baso % (Auto) 0.1 Lymph # (Auto) 1.5 [place] # (Auto) 1.6 H Eos # (Auto) 0.0 Baso # (Auto) 0.0 Abs Immat Gran (auto) 0.05 H Absolute Neuts (auto) 7.9 Absolute Nucleated RBC 0.000 Nucleated RBC % (auto) 0.0 Smear Tech's Comments VERIFIED Anion Gap 13 Estim Creat Clear Calc 75.5 Estimated GFR > 60 Fasting Glucose 117 H Calcium 8.5 Assessment and Plan (1) Status post total right knee replacement: Status: Acute Plan 71 year old women s/p right knee TKA Right total knee arthroplasty Management as per surgical team pain management HTN stable BP continue home medications Persistent atrial fibrillation, no RVR continue apixaban continue BB Normocytic anemia Chronic Minimal blood loss during surgery Attending Dr. Larios DVT prophylaxis with apixaban Full code MEDICAL CONSULTATION COMPLETE. WILL SIGN OFF Time Spent With Patient Time: Total time managing care of this patient today ____ minutes. Quality Stroke Does the patient have a stroke diagnosis?: No VTE Prior VTE?: No VTE Risk Level:: Medical - moderate - high VTE Device Contraindication: Treatment Not Indicated VTE Drug Contraindication: N/A - Med Ordered
--- NOTE | 2022-11-30 11:29 | MHC.CM.PN ---
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
--- NOTE | 2022-11-30 13:37 | HO.POSTANES ---
Post Anesthesia Evaluation Post Anesthesia Evaluation Vital Signs: Vital Signs Temp Pulse Resp BP Pulse Ox O2 Del Method 11/30/22 12:47 93 Room Air 11/30/22 12:21 93 Room Air 11/30/22 11:00 97.5 F 69 16 100/49 L 97 Room Air 11/30/22 08:00 97.8 F 74 18 127/58 L 97 Room Air 11/30/22 03:00 97.3 F 69 16 134/60 93 Room Air Anesthesia: Nerve Block and General Mental Status: Awake Pain Control: Satisfactory Nausea/Vomiting: None Hydration: Adequate Anesthesia-Related Issues: No Anes. Related Issues
--- NOTE | 2022-11-30 15:13 | PC.NURSE ---
Pt refused lovenox today. she was educated on what it is used for. also stated only taking Eliqis once a day. Tere Najera made aware
[2022-12-01 02:50] VITALS: BP 124/58; PULSE 64; RESP 16; TEMP 36.3; O2SAT 93
[2022-12-01] MEDS: Lactated Ringers 1,000 ML 100 ML IVCONT (04:07)
[2022-12-01] MEDS: oxyCODONE HCl Immed Release 5 MG TABLET 10 MG PO (06:38)
[2022-12-01 07:50] LABS: MANUAL DIFF FLAG NO
[2022-12-01 07:52] LABS: Basophils Percent Auto 0.4 % (0-2); Eosinophils Absolute Auto 0.3 X10*3/uL (0.0-0.4); Hematocrit 27.7 % (37.0-47.0); Imm Gran Abs Auto 0.03 X10*3/uL (0.00-0.03); Imm Gran Pct Auto 0.3 % (0.0-0.4); Lymphocytes Percent Auto 22.3 % (20-40); Mean Corpuscular HGB Conc 32.5 g/dl (31.0-35.0); Mean Corpuscular Hemoglobin 30.4 pg (27.0-33.0); Mean Corpuscular Volume 93.6 fL (80.0-98.0); Mean Platelet Volume 11.3 fL (9.4-12.3); Monocytes Absolute Auto 1.4 X10*3/uL (0.1-1.2); Monocytes Percent Auto 15.4 % (2-11); Neutrophils Absolute Auto 5.3 x10*3/uL (2.0-8.3); Neutrophils Percent Auto 58.6 % (45-73); Platelet Count 205 X10*3/uL (160-400); Red Blood Count 2.96 X10*6/uL (4.20-5.50); Red Cell Distribution Width 14.5 % (11.0-16.0)
[2022-12-01 08:00] VITALS: BP 124/60; PULSE 78; RESP 16; TEMP 37.2; O2SAT 97
[2022-12-01 08:59] VITALS: BP 124/60; PULSE 78; O2SAT 97
--- NOTE | 2022-12-01 09:33 | MHC.CM.PN ---
Addendum entered by Yolanda Everett 12/01/22 11:34: TRANSPORT TIME MOVED TO 1200 HOURS DUE TO PENDING COVID RESULTS Original Note: [facility] REQUESTING PT BE DC'D AT 1100 HOURS CM LEFT MESSAGE FOR DAUGHTER, MILAN [phone] INFORMING HER AND PROVIDING CONTACT INFO FOR HER TO CALL WITH [facility]SPORT BOOKED FOR 1100 HOURS WITH SARAH MUNROE
[2022-12-01] MEDS: oxyCODONE HCl ER 10 MG TAB.ER.12H PO (09:57)
[2022-12-01] MEDS: Metoprolol Tartrate 50 MG TABLET PO (09:57)
[2022-12-01] MEDS: Celecoxib 200 MG CAPSULE PO (09:58)
[2022-12-01] MEDS: risperiDONE 0.5 MG TABLET PO (09:58)
[2022-12-01] MEDS: amLODIPine Besylate 5 MG TABLET PO (09:58)
[2022-12-01] MEDS: Spironolactone 25 MG TABLET 50 MG PO (09:58)
[2022-12-01] MEDS: Cholecalciferol (Vitamin D3) 25 MCG TABLET 50 MCG PO (09:59)
[2022-12-01] MEDS: Apixaban 5 MG TABLET PO (09:59)
[2022-12-01] MEDS: Acetaminophen 325 MG TABLET 650 MG PO (11:27)
--- NOTE | 2022-12-01 11:35 | P.DS_ITS ---
DS: Providers Provider Date of Service: 12/01/22 Date of admission: 11/29/22 07:47 Primary care physician: Juana Moran MD Consults: 11/29/22 15:11 Consult to Hospitalist Routine Consulting Provider: Hospitalist Reason For Exam: post op TKA with h/o afib and DVT DS: Diagnosis Discharge Diagnosis (1) Status post total right knee replacement: Status: Acute DS: Summary Hospital Course Hospital Course: The patient underwent a successful right total knee arthroplasty, was transferred to PACU and then to the floor to recover. During their stay, their vitals were stableafebrile at 98.9. Labs were unremarkable, H/H 9.0/27.7. POD 1 she was started her Eliquis and on DC resumed her home dose Eliquis bid., She also received PT/Ot services twice a day. Prior to discharge, their dressing was change, incision clean dry and intact, new Aquacel dressing applied and the plan was to be discharged to [facility]. Time Spent with Patient Time attestation: Total time managing care of this patient today ____ minutes. Discharge coordination time: Less than 30 minutes Quality: Safe Use of Opioids Does Pt have an Active Cancer Diagnosis on the Problem List?: No Quality: Stroke Does the patient have a stroke diagnosis?: No Physical Exam Vital Signs: Vital Signs: Last Vital Signs Temp 98.9 F 12/01/22 08:00 Pulse 78 12/01/22 08:59 Resp 16 12/01/22 08:00 BP 124/60 12/01/22 08:59 Pulse Ox 97 12/01/22 08:59 O2 Del Method 12/01/22 08:00 O2 Flow Rate 2 11/29/22 14:15 BMI result Body Mass Index 33.6 Const: General: cooperative, healthy appearing and no acute distress Resp: Effort & Inspection: normal respiratory effort and able to speak in complete sentences Cardio: Rate: regular rate Peripheral pulses: Peripheral pulses 2+ throughout GI: Palpation (GI): Soft to palpation Skin: General skin exam: no rashes or lesions noted Extrem: Other: incision clean dry and intact. Kelly intact. No erythema or joint effusion. Calf supple nontender. Neurovascularly intact. DS: Data Data Completed and Pending Completed studies during hospitalization [Text1]: Procedures Replacement of Left Knee Joint with Synthetic Substitute, Uncemented, Open Approach (04/11/22) Pending studies at discharge: Pending at discharge 11/29/22 11:37 Surgical [PTH] Routine Labs on day of discharge: Laboratory Results - last 24 hr 12/01/22 07:45 WBC 9.0 RBC 2.96 L Hgb 9.0 L Hct 27.7 L MCV 93.6 MCH 30.4 MCHC 32.5 RDW 14.5 Plt Count 205 MPV 11.3 Immature Gran % (Auto) 0.3 Neut % (Auto) 58.6 Lymph % (Auto) 22.3 [place] % (Auto) 15.4 H Eos % (Auto) 3.0 Baso % (Auto) 0.4 Lymph # (Auto) 2.0 [place] # (Auto) 1.4 H Eos # (Auto) 0.3 Baso # (Auto) 0.0 Abs Immat Gran (auto) 0.03 Absolute Neuts (auto) 5.3 Absolute Nucleated RBC 0.000 Nucleated RBC % (auto) 0.0 Discharge Plan Discharge Anticipated Discharge Date/Time: 12/01/22 10:26 Patient Disposition: Xfer SNF Discharge Diagnosis: RT TKA Referrals: [facility] [Outside] - 1 Week Tere Najera PA-C [Physician Ship/Rec/Doc Control] - 2 Weeks (12/14/22 12:30 [facility] Tere Najera PA-C) Discharge Medications: New sennosides [Senna Lax] 8.6 mg Tablet 17.2 mg PO BEDTIME PRN (Reason: Constipation) 14 Days Qty: 14 0RF acetaminophen 325 mg Tablet 650 mg PO Q6H PRN (Reason: Pain, Mild (Pain Scale 1-3)) 30 Days Qty: 240 0RF oxycodone 5 mg Tablet 5 mg PO Q4H PRN (Reason: Pain, Moderate (Pain Scale 4-6) 7 Days Qty: 42 0RF Rx Instructions: Partial Fill upon patient request. oxycodone 5 mg tablet 5 mg PO Q4H PRN (Reason: pain (scale score 4-6)) Qty: 20 0RF Rx Instructions: Partial Fill upon patient request. Continued spironolactone 50 mg tablet 50 mg PO DAILY Qty: 90 3RF (AYAN) prakash Mata See Rx Instructions .MEDSUPPLY Qty: 1 0RF Rx Instructions: Folding Front wheeled walker metoprolol tartrate 50 mg tablet 50 mg PO BID 90 Days Qty: 180 1RF Protocol: Hold for SBP/HR < HOLD for SBP < : 90 HOLD for HR < : 60 amlodipine 5 mg tablet 5 mg PO BID 90 Days Qty: 180 3RF Eliquis 5 mg tablet 5 mg PO BID Qty: 60 5RF omega-3 fatty acids Capsule 2,000 mg PO DAILY glucosamine sulfate 750 mg Tablet 750 mg PO DAILY cholecalciferol (vitamin D3) 50 mcg (2,000 unit) tablet 50 mcg PO DAILY risperidone 0.5 mg tablet 0.5 mg PO DAILY Discharge Orders: Discharge Order (Routine); Ordered 12/01/22 Ordered By: Tere Najera Diet: Regular diet Activity on Discharge: Use cane or walker Stand Alone Forms: Patient Portal Discharge page Care Plan Goals: Restore function of joint Health Concerns: none Plan of Treatment: Physical Therapy Pain management DVT prophylaxis Assessment: Physical Therapy for Total knee arthroplasty: WBAT, gait training, ROM 0-12, quad strength * Limit stair climbing * No showering, no tub bath-keep dressing clean, dry and intact * No driving x6 weeks * Resume Eliquis bid * Follow up with [facility] in 2 weeks: 12/14/2313:30[facility] [place] [facility] * --you will also have your first out patient PT eval on the day of your post op appt-so please plan on being in the office that day for an extended period of time.
[2022-12-01 11:50] LABS: IDNOW Serial# 16C4AD1C
[2022-12-01 11:51] LABS: COVID-19 Test Negative (Negative)
== END 2022-12-01 12:08 | disposition skilled nursing facility (03) | DRG 470 ==
LOC: HO.SSSA 07:48 → HO.S3 13:57
PROVIDERS: Physician Assistant; Admitting Provider Orthopaedic Surgery; PCP Internal Medicine; Visit Provider Orthopaedic Surgery
PROC: 0SRC0JA Replacement of Right Knee Joint with Synthetic Substitute, Uncemented, Open Approach (ICD-10-PCS; CPT 27447; principal; 2022-11-29 09:50)
DX: M17.11 Unilateral primary osteoarthritis, right knee (principal); D68.62 Lupus anticoagulant syndrome; I48.19 Other persistent atrial fibrillation; D64.9 Anemia, unspecified; I10 Essential (primary) hypertension; F41.1 Generalized anxiety disorder; Z20.822 Contact with and (suspected) exposure to COVID-19; Z85.3 Personal history of malignant neoplasm of breast; Z86.718 Personal history of other venous thrombosis and embolism; Z79.01 Long term (current) use of anticoagulants; Z79.899 Other long term (current) drug therapy
CPT/HCPCS: 36415; 73560; 80048; 80051; 82565; 84520; 85014; 85018; 85025; 86850; 86870; 86885; 86900; 86901; 86920; 86922; 87635; 87640; 87641; 88305; 88311; 97110; 97116; 97162; 97165; 97530; 97535; C1776; J0131; J0690; J1100; J1170; J2250; J2405; J2795; J3010

== ENCOUNTER → 2022-12-14 14:26 | Outpatient (BNVA) | payer MEDICARE, MEDICAID, SELFPAY | PROVIDERS: PCP Internal Medicine; Visit Provider Physician Assistant | DX: Z13.89 Encounter for screening for other disorder (principal) | CPT/HCPCS: 99212 ==

== ENCOUNTER → 2023-01-11 11:21 | Outpatient (BNVA) | payer MEDICARE, MEDICAID, SELFPAY | PROVIDERS: PCP Internal Medicine; Visit Provider Physician Assistant | DX: Z13.89 Encounter for screening for other disorder (principal) | CPT/HCPCS: 99212 ==

== ENCOUNTER 2023-02-22 07:03 | Outpatient (REF) | payer MEDICARE, MEDICAID, SELFPAY ==
--- NOTE | ~2023-02-22 | XR_ITS ---
EXAMINATION: XR BOTH KNEES XR KNEE, RIGHT CLINICAL INFORMATION: Pain COMPARISON: 11/29/2022 and 05/26/2022. TECHNIQUE: AP standing view of both knees and lateral and sunrise views of the right knee. FINDINGS: Patient is status post bilateral knee arthroplasty. No acute fracture is identified. No prosthetic loosening is seen. No significant effusion is identified. There is some asymmetry of the patellofemoral joint however, this is likely projectional in nature due to positioning. XR/XR knee RT 2V IMPRESSION: Status post bilateral knee arthroplasty without significant abnormality appreciated.
--- NOTE | ~2023-02-22 | XR_ITS ---
EXAMINATION: XR BOTH KNEES XR KNEE, RIGHT CLINICAL INFORMATION: Pain COMPARISON: 11/29/2022 and 05/26/2022. TECHNIQUE: AP standing view of both knees and lateral and sunrise views of the right knee. FINDINGS: Patient is status post bilateral knee arthroplasty. No acute fracture is identified. No prosthetic loosening is seen. No significant effusion is identified. There is some asymmetry of the patellofemoral joint however, this is likely projectional in nature due to positioning. XR/XR knee standing BI IMPRESSION: Status post bilateral knee arthroplasty without significant abnormality appreciated.
== END 2023-02-22 07:04 ==
LOC: HO.HOSX 07:03
PROVIDERS: Visit Provider Orthopaedic Surgery
DX: Z47.1 Aftercare following joint replacement surgery (principal); Z96.651 Presence of right artificial knee joint
CPT/HCPCS: 73560; 73565; 99212

== ENCOUNTER 2023-05-21 08:54 | Outpatient (REF) | payer MEDICARE, MEDICAID, SELFPAY ==
[2023-05-21 09:58] LABS: Hematocrit 39.9 % (37.0-47.0); Hemoglobin 13.3 g/dl (12.0-16.0); Mean Corpuscular HGB Conc 33.3 g/dl (31.0-35.0); Mean Platelet Volume 11.7 fL (9.4-12.3); Platelet Count 280 X10*3/uL (160-400); Red Blood Count 4.29 X10*6/uL (4.20-5.50); Red Cell Distribution Width 14.6 % (11.0-16.0); White Blood Count 7.9 X10*3/uL (4.8-10.8)
== END 2023-05-21 08:55 | disposition home or self-care (01) ==
LOC: HO.LAB 08:54
PROVIDERS: PCP Internal Medicine; Visit Provider Internal Medicine Cardiovascular Disease
DX: I48.0 Paroxysmal atrial fibrillation (principal); I10 Essential (primary) hypertension
CPT/HCPCS: 36415; 85027; 99212

== ENCOUNTER 2023-11-27 08:31 | Outpatient (AMB) | payer MEDICARE, MEDICAID, SELFPAY ==
--- NOTE | 2023-11-27 08:32 | MHC.OFFVIS ---
Intake Vital Signs 11/27/23 08:33 Height 5 ft 3 in Weight 187 lb 6.287 oz BMI 33.2 BP 120/70 Blood Pressure Location Rt brachial Position Sitting Pulse 67 Intake Visit Reasons: 6 months followup after labs Intake Note: 6 month follow-up with ekg feeling good Flying Ii Instructor: Flying Ii Instructor Present Accompanied by: Daughter Allergies No Known Allergies [No Known Allergies*] Allergy (Verified 01/11/23 11:27) Medication List - Last Reconciled 11/27/23 by Grzegorz Shepherd MD acetaminophen 650 mg (2 x 325 mg) PO Q6H PRN 30 days amlodipine 5 mg PO BID 90 days amoxicillin 2,000 mg (4 x 500 mg) PO ONCE 1 day apixaban (Eliquis) 5 mg PO BID cholecalciferol (vitamin D3) 50 mcg PO DAILY glucosamine sulfate 750 mg PO DAILY metoprolol tartrate 50 mg See Protocol PO BID 90 days omega-3 fatty acids 2,000 mg PO DAILY risperidone 0.5 mg PO DAILY sennosides (Senna Lax) 17.2 mg (2 x 8.6 mg) PO BEDTIME PRN 14 days spironolactone 50 mg PO DAILY walker Folding Front wheeled walker HPI HPI Comments History of Present Illness Details Angeles comes for follow-up. She has not been able to exercise much due to back issues since her knee surgery. She denies any worsening shortness of breath, orthopnea, PND. Blood pressures been generally well control with systolic blood pressure up to 120-130 mmHg. She denies any leg edema. Denies any prolonged palpitation irregular heartbeat. Denies any lightheadedness, syncope. Denies any exertional chest pain. No bleeding issues or neurologic events. [facility] Medical History Essential hypertension History of DVT (deep vein thrombosis) Lupus anticoagulant disorder Generalized anxiety disorder Post laminectomy syndrome Chronic dyspnea Allergic rhinitis History of cardioversion Hx of breast cancer Primary osteoarthritis of left knee Paroxysmal atrial fibrillation HTN (hypertension) Varicose veins of bilateral lower extremities with other complications Surgical History History of total left knee replacement (TKR) History of cardiac radiofrequency ablation (RFA) History of lumpectomy of left breast Hx of spinal surgery Hx of appendectomy Hx of breast biopsy Family History Father No problems noted. Mother CVD (cardiovascular disease) HTN (hypertension) Stroke Social History Household Members: None Housing: House Are you a primary palliative care coordinator to a significant other at home: No Do you presently have visiting nurse or other home services: No Alcohol intake: former Comment: sit Patient Tobacco Use Status: Never used Tobacco Second Hand Smoke Exposure: No Advance Directives Date on File: 04/14/22 service: No Current occupational status: retired Review of Systems Const Denies chills, Denies fatigue, Denies fever(s), Denies frequent falls, Denies weakness, Denies weight gain and Denies weight loss ENT Denies dizziness Card Denies chest pain, Denies leg edema, Denies lightheadedness, Denies palpitations, Denies dyspnea, Denies dyspnea on exertion, Denies orthopnea and Denies other (loss of consciousness) Resp Denies cough, Denies dyspnea and Denies dyspnea on exertion GI Denies hematochezia and Denies change in stool character Musc Denies abnormal gait, Denies muscle weakness, Denies numbness, Denies radiating pain into limb and Denies tingling Neuro Denies abnormal gait, Denies dizziness, Denies frequent falls, Denies numbness, Denies tingling and Denies weakness Endo Denies fatigue and Denies palpitations Physical Exam Vital Signs: Last Vital Signs Pulse 67 11/27/23 08:33 BP 120/70 11/27/23 08:33 BMI result Body Mass Index 33.2 Const General: cooperative, comfortable and no acute distress Orientation/consciousness: patient oriented x3 HEENT Head: Yes normal to inspection Resp Effort & Inspection: normal respiratory effort Auscultation: clear to auscultation bilaterally, no rales, no rhonchi and wheezes scattered wheezes Cardio Jugular venous distension: no JVD Rate: regular rate Rhythm: abnormal rhythm (irregularly irregular) Heart sounds: S1 normal heart sound present, S2 normal heart sound present, no gallops, no murmurs and no rubs Peripheral pulses: Peripheral pulses 2+ throughout GI Inspection: Yes normal to inspection Neuro General: patient oriented x3 Extrem Other: right lower leg with redness, swelling, no skin breaks seen. Overall appearance is improved compared to when I assessed it 3 weeks ago. Right lower extremity: lower leg (A wound on the anterior aspect with eschar with some oozing) Office Procedures EKG Details: EKG shows normal sinus rhythm with poor R-wave progression due to lead placement. [id number], Complete Assessment & Plan Assessment & Plan (1) Paroxysmal atrial fibrillation: Comment: status post cardioversion on 06/24/2020 for persistent atrial fibrillation. Maintain on amiodarone Code(s): I48.0 - Paroxysmal atrial fibrillation Plan: Paroxysmal atrial fibrillation which has remained suppressed post cardioversion has done extremely well with rhythm management. Continue to pursue rhythm control approach. Currently not on antiarrhythmic drug. Will follow with echocardiogram near future to assess left atrial chamber size as well as LV systolic and diastolic function pulmonary hypertension. Continue rhythm control approach will continue full oral anticoagulation, currently on Eliquis 5 mg b.i.d.. Semi annual renal function test should be pursued. CHADSVASc score of at least 3. (2) HTN (hypertension): Code(s): I10 - Essential (primary) hypertension Plan: Hypertension with evidence of hypertensive heart disease diastolic dysfunction. No clinical signs or symptoms of heart failure. Difficult control blood pressure in the past currently doing well on current regimen. Importance of good blood pressure control was discussed continue current therapy. Low-salt diet was discussed. Signs symptoms of heart failure were discussed. Encouraged to increase activity level to improve aerobic capacity. Will follow up in the clinic in 6 months time, sooner p.r.n.. Thank you for allowing me to partake in her care Orders: Orders Basic Metabolic Panel Today I48.0 - Paroxysmal atrial fibrillation Complete Blood Count no Diff Today I48.0 - Paroxysmal atrial fibrillation CA echo transthoracic complete 2 Months I48.0 - Paroxysmal atrial fibrillation Coding Level of Care Code Est Pt Level 4 (31997) Diagnoses Paroxysmal atrial fibrillation I48.0 HTN (hypertension) I10 CPT Codes EKG - CPT: 02431-[id number], Complete ([id number])
[2023-11-27 08:33] VITALS: BP 120/70; PULSE 67; BMI 33.2
== END 2023-11-27 08:58 | disposition home or self-care (01) ==
PROVIDERS: PCP Internal Medicine; Visit Provider Internal Medicine Cardiovascular Disease
DX: I48.0 Paroxysmal atrial fibrillation (principal); I10 Essential (primary) hypertension
CPT/HCPCS: 93010; 99214

== ENCOUNTER → 2023-11-27 08:31 | Outpatient (BNVA) | payer MEDICARE, MEDICAID, SELFPAY | PROVIDERS: PCP Internal Medicine; Visit Provider Internal Medicine Cardiovascular Disease | DX: I48.0 Paroxysmal atrial fibrillation (principal); I10 Essential (primary) hypertension; Z79.01 Long term (current) use of anticoagulants | CPT/HCPCS: 93005; 99212 ==

== ENCOUNTER → 2024-01-28 08:54 | Outpatient (REF) | payer MEDICARE, MEDICAID, SELFPAY ==
--- NOTE | 2024-01-28 08:59 | CA_ITS ---
Transthoracic Echocardiogram Patient (Last, First, Middle): Angeles Pedersen, Gender: Female Date of : 1950 Age: 73 Procedure Date: 01/28/2024 Procedure Type: Transthoracic Echocardiogram Location: OP Height: 160. cm Weight: 86.18 kg BSA: 1.89 m2 Heart Rate: 58 bpm BP: 145 / 65 mmHg Drywall Applicator: BUD Referring MD: Grzegorz Shepherd MD Symptoms: I48.0 - Paroxysmal atrial fibrillation Study Quality: Fair ECG Rhythm: Bradycardia Conclusions: - The left ventricular systolic function is normal. The visually estimated ejection fraction is between 65-70%. - There is mild calcification of the aortic valve. - No obvious valvular pathology seen on this study. Findings Left Ventricle Normal left ventricular cavity size. The left ventricular systolic function is normal. The visually estimated ejection fraction is between 65-70%. There is no evidence of regional wall motion abnormalities. Diastolic function is normal for age. There is mild septal and mild basal asymmetric hypertrophy. LV peak GLS -18.5%. Right Ventricle Normal right ventricular cavity size and systolic function. Atria Both atria are normal in size. Aortic Valve There is a normal trileaflet aortic valve. There is mild calcification of the aortic valve. There is no aortic valve stenosis. There is no aortic valve regurgitation. Mitral Valve The mitral valve appears normal. There is mild mitral valve regurgitation. There is no mitral valve stenosis. Pulmonic Valve The pulmonic valve is likely normal. Tricuspid Valve There is trace tricuspid valve regurgitation. There is no evidence of pulmonary hypertension. Great Vessels The asc aorta is normal in size. Venous The inferior vena cava is normal in size and collapses greater than 50% with inspiration. Pericardium/Pleural There is no evidence of pericardial effusion. Prior Study Comparison No significant change compared to prior study dated: 02/22/2022. Recommendations, Care & Conclusions No obvious valvular pathology seen on this study. Measurements 2D Linear Measurements IVSd: 1.10 0.6-0.9/0.6-1.0 cm LVIDd: 4.39 3.9-5.3/4.2-5.9 cm LVIDd Index: 2.32 2.4-3.2/2.2-3.1 cm/m2 LVIDs: 2.02 2.0-3.6 cm LVPWd: 1.02 0.7-1.1 cm LA Diam: 3.80 2.7-3.8/3.0-4.0 cm LAIDs Index: 2.01 1.5-2.3 cm/m2 LV Mass: 198.94 67-162/88-224 g LV Mass Index: 105.26 43-95/49-115 g/m2 LVOT Diam: 1.90 3.0+(-)1.3 cm 2D Systolic Function EF 4C: 72.50 >55% EF 2C: 70.80 >55% EF BiP: 72.50 >55% Mitral Valve MV Pk E: 1.07 MV PK A: 0.55 MV Decel Time: 335.00 E/A: 1.90 E'Lateral: 7.62 E'Medial: 7.36 E/E' Med: 14.50 E/E' Lat: 14.00 PHT: 98.00 MVA PHT: 2.24 Decel [place]: 3.19 Aortic Valve AoV Pk Alfred: 1.78 AoV Mn Alfred: 1.20 AoV VTI: 0.48 AoV Pk Grad: 13.00 Aov Mn Grad: 7.00 SUNIL Cont.VTI: 1.58 LVOT LVOT Pk Alfred: 1.02 LVOT Mn Alfred: 0.68 LVOT VTI: 0.27 LVOT Pk Grad: 4.00 LVOT Mn Grad: 2.00 LVOT Diam: 1.90 LVOT Area: 2.84 Diastolic Function MV Pk E: 1.07 MV Pk A: 0.55 E/A: 1.90 E'Medial: 7.36 E/E' Med: 14.50 E' Laterial: 7.62 E/E' Lat: 14.00 Right Ventricle TAPSE (mm): 25.80 TVS' Alfred: 10.80 Tricuspid Valve TR Pk Alfred: 2.32 TR Pk Grad: 22.00 RA Press: 3.00 RVSP: 25.00 Great Vessels Aorta Sinus of Valsalva: 3.40 2.0-3.5 cm Ao Asc: 3.30 2.1-3.4 cm Pulmonary Valve PV Pk Alfred: 0.97 Peak PV Grad: 4.00 Updated in Other Vendor System with Status of Final Chris Tejada MD electronically signed on 01/29/2024 8:32:19 AM with status of Final
== END ==
LOC: HO.CARD 08:54
PROVIDERS: PCP Internal Medicine; Visit Provider Internal Medicine Cardiovascular Disease
DX: I48.0 Paroxysmal atrial fibrillation (principal)
CPT/HCPCS: 93306; 93356

== ENCOUNTER → 2024-01-28 08:59 | Outpatient (BNV) | payer MEDICARE, MEDICAID, SELFPAY | PROVIDERS: PCP Internal Medicine; Visit Provider Internal Medicine | DX: I34.0 Nonrheumatic mitral (valve) insufficiency (principal) | CPT/HCPCS: 93306 ==

== ENCOUNTER 2024-06-02 08:38 | Outpatient (AMB) | payer MEDICARE, MEDICAID, SELFPAY ==
[2024-06-02 08:43] VITALS: BP 130/68; PULSE 65; BMI 32.8
--- NOTE | 2024-06-02 08:43 | MHC.OFFVIS ---
Vital Signs 06/02/24 08:43 Height 5 ft 3 in Weight 185 lb 3.013 oz BMI 32.8 BP 130/68 Blood Pressure Location Lt brachial Position Sitting Pulse 65 Pulse Source Pulse Oximeter Intake Visit Reasons: 6 mth f/up echo Intake Note: pt is doing good no concerns Health Safety Specialist Required: Yes Health Safety Specialist Name: daughter Accompanied by: Daughter Allergies No Known Allergies [No Known Allergies*] Allergy (Verified 01/11/23 11:27) Medication List - Last Reconciled 06/02/24 by Grzegorz Shepherd MD acetaminophen 650 mg (2 x 325 mg) PO Q6H PRN 30 days amlodipine 5 mg PO BID 90 days apixaban (Eliquis) 5 mg PO BID cholecalciferol (vitamin D3) 50 mcg PO DAILY glucosamine sulfate 750 mg PO DAILY metoprolol tartrate 50 mg PO BID risperidone 0.5 mg PO DAILY spironolactone 50 mg PO DAILY walker Folding Front wheeled walker HPI Comments Details: Angeles comes for follow-up, accompanied by her daughter. She acts as japanese interpreter. Patient has been doing very well from cardiac perspective. Denies any new cardiac symptoms. Denies any prolonged irregular heartbeat or palpitations. Denies any lightheadedness, syncope. No exertional chest pain. No bleeding issues or neurologic events. No orthopnea, PND, leg edema. Does have issues with arthritis including back pain which slows her down and does not exercise much. Also has bilateral lower extremity swelling related to varicose veins, right greater than left, wearing compression stocking on the right. [facility] Medical History Essential hypertension History of DVT (deep vein thrombosis) Lupus anticoagulant disorder Generalized anxiety disorder Post laminectomy syndrome Chronic dyspnea Allergic rhinitis History of cardioversion Hx of breast cancer Primary osteoarthritis of left knee Paroxysmal atrial fibrillation HTN (hypertension) Varicose veins of bilateral lower extremities with other complications Surgical History History of total left knee replacement (TKR) History of cardiac radiofrequency ablation (RFA) History of lumpectomy of left breast Hx of spinal surgery Hx of appendectomy Hx of breast biopsy Family History Father No problems noted. Mother CVD (cardiovascular disease) HTN (hypertension) Stroke Social History Household Members: None Housing: House Are you a primary childcare director to a significant other at home: No Do you presently have visiting nurse or other home services: No Alcohol intake: former Comment: sit Patient Tobacco Use Status: Never used Tobacco Second Hand Smoke Exposure: No Advance Directives Date on File: 04/14/22 service: No Current occupational status: retired Review of Systems Const Denies weakness ENT Denies dizziness Card Denies chest pain, Denies chest pain with activity, Denies syncope, Denies rapid heart rate, Denies pedal edema, Denies edema, Denies leg edema, Denies lightheadedness, Denies palpitations, Denies dyspnea, Denies dyspnea on exertion and Denies orthopnea Resp Denies cough, Denies dyspnea and Denies dyspnea on exertion GI Denies hematochezia and Denies change in stool character Musc Denies abnormal gait, Denies muscle cramps, Denies muscle weakness, Denies numbness, Denies radiating pain into limb and Denies tingling Neuro Denies abnormal gait, Denies dizziness, Denies syncope, Denies numbness, Denies tingling and Denies weakness Endo Denies palpitations Physical Exam Vital Signs: Last Vital Signs Pulse 65 06/02/24 08:43 BP 130/68 06/02/24 08:43 BMI result Body Mass Index 32.8 Const General: cooperative, comfortable and no acute distress Orientation/consciousness: patient oriented x3 HEENT Head: Yes normal to inspection Resp Effort & Inspection: normal respiratory effort Auscultation: clear to auscultation bilaterally, no rales, no rhonchi and wheezes scattered wheezes Cardio Jugular venous distension: no JVD Rate: regular rate Rhythm: abnormal rhythm (irregularly irregular) Heart sounds: S1 normal heart sound present, S2 normal heart sound present, no gallops, no murmurs and no rubs Peripheral pulses: Peripheral pulses 2+ throughout GI Inspection: Yes normal to inspection Neuro General: patient oriented x3 Extrem Other: right lower leg with redness, swelling, no skin breaks seen. Overall appearance is improved compared to when I assessed it 3 weeks ago. General: No clubbing, No cyanosis, No edema and Yes other (Bilateral varicose veins) Right lower extremity: lower leg (A wound on the anterior aspect with eschar with some oozing) Assessment & Plan Assessment & Plan (1) Paroxysmal atrial fibrillation: Comment: status post cardioversion on 06/24/2020 for persistent atrial fibrillation. Maintain on amiodarone Code(s): I48.0 - Paroxysmal atrial fibrillation Category: Medical Plan: Highly symptomatic paroxysmal atrial fibrillation doing very well since cardioversion amiodarone therapy has maintain rhythm control. Has done extremely well with rhythm control approach will continue pursue rhythm control approach. Given that she has not had any recurrent episodes will pursue without antiarrhythmic drug therapy. Continue metoprolol therapy. Importance of good medical therapy was discussed. Continue avoid stimulants. Advised to call me with new symptoms. Continue full oral anticoagulation, currently on Eliquis 5 mg b.i.d.. Semi annual renal function test should be pursued. (2) HTN (hypertension): Code(s): I10 - Essential (primary) hypertension Category: Medical Plan: Difficult control blood pressure in the past. Currently doing very well with current medications. Continue current medications including metoprolol, amlodipine and spironolactone. Importance of good blood pressure control was discussed. Low-salt diet was discussed. Importance of regular monitoring blood pressure maintain a log was discussed. Importance of regular physical activity was discussed. Will follow up in the clinic in 1 year's time, sooner p.r.n.. Thank you for allowing me to partake in her care Coding Level of Care Code Est Pt Level 4 (63469) Diagnoses Paroxysmal atrial fibrillation I48.0 HTN (hypertension) I10
== END 2024-06-02 09:01 | disposition home or self-care (01) ==
PROVIDERS: PCP Internal Medicine; Visit Provider Internal Medicine Cardiovascular Disease
DX: I48.0 Paroxysmal atrial fibrillation (principal); I10 Essential (primary) hypertension
CPT/HCPCS: 99214

== ENCOUNTER → 2024-06-02 08:38 | Outpatient (BNVA) | payer MEDICARE, MEDICAID, SELFPAY | PROVIDERS: PCP Internal Medicine; Visit Provider Internal Medicine Cardiovascular Disease | DX: I48.0 Paroxysmal atrial fibrillation (principal); I10 Essential (primary) hypertension; Z79.01 Long term (current) use of anticoagulants; Z79.899 Other long term (current) drug therapy | CPT/HCPCS: 99212 ==

== ENCOUNTER 2025-06-09 08:31 | Outpatient (AMB) | payer MEDICARE, MEDICAID, SELFPAY ==
[2025-06-09 08:33] VITALS: BP 130/82; PULSE 61; BMI 34.0
--- NOTE | 2025-06-09 08:33 | A.OFFVIS_ITS ---
Vital Signs 06/09/25 08:33 Height 5 ft 3 in Weight 191 lb 12.835 oz BMI 34.0 BP 130/82 Blood Pressure Location Rt brachial Position Sitting Pulse 61 Intake Visit Reasons: 1 yr f/up Intake Note: 1 year follow-up with ekg feeling good Allergies No Known Allergies (No Known Allergies*) Allergy (Verified 01/11/23 11:27) Medication List - Last Reconciled 06/09/25 by Grzegorz Shepherd MD acetaminophen 650 mg (2 x 325 mg) PO Q6H PRN 30 days amlodipine 5 mg PO BID 90 days apixaban (Eliquis) 5 mg PO BID cholecalciferol (vitamin D3) 50 mcg PO DAILY glucosamine sulfate 750 mg PO DAILY metoprolol tartrate 50 mg PO BID risperidone 0.5 mg PO DAILY spironolactone 50 mg PO DAILY walker Folding Front wheeled walker HPI Comments Details: Angeles comes for follow-up, accompanied by her daughter. She has done well in the last year from cardiac perspective although she has had some issues with the right eye and vision in his right eye due to retinal issues. She denies any cardiac symptoms although she does not exercise much she has no symptoms exertional chest pain or shortness of breath. Denies any orthopnea, PND, leg edema. Denies any prolonged palpitation irregular heartbeat. Denies any lightheadedness, syncope. She denies any bleeding issues or neurologic events. [facility] Medical History (Updated 06/09/25 @ 08:55 by Grzegorz Shepherd MD) Uncontrolled hypertension Essential hypertension History of DVT (deep vein thrombosis) Lupus anticoagulant disorder Generalized anxiety disorder Post laminectomy syndrome Chronic dyspnea Allergic rhinitis History of cardioversion Hx of breast cancer Primary osteoarthritis of left knee Paroxysmal atrial fibrillation HTN (hypertension) Varicose veins of bilateral lower extremities with other complications Surgical History History of total left knee replacement (TKR) History of cardiac radiofrequency ablation (RFA) History of lumpectomy of left breast Hx of spinal surgery Hx of appendectomy Hx of breast biopsy Family History Father No problems noted. Mother CVD (cardiovascular disease) HTN (hypertension) Stroke Social History Household Members: None Housing: House Are you a primary before and after school daycare worker to a significant other at home: No Do you presently have visiting nurse or other home services: No Alcohol intake: former Comment: sit Patient Tobacco Use Status: Never used Tobacco Second Hand Smoke Exposure: No Advance Directives Date on File: 04/14/22 service: No Current occupational status: retired Review of Systems Const Denies chills, Denies fatigue, Denies fever(s), Denies frequent falls, Denies weakness, Denies weight gain and Denies weight loss ENT Denies dizziness Card Denies chest pain, Denies leg edema, Denies lightheadedness, Denies palpitations, Denies dyspnea, Denies dyspnea on exertion, Denies orthopnea and Denies other (loss of consciousness) Resp Denies cough, Denies dyspnea and Denies dyspnea on exertion GI Denies hematochezia and Denies change in stool character Musc Denies abnormal gait, Denies muscle weakness, Denies numbness, Denies radiating pain into limb and Denies tingling Neuro Denies abnormal gait, Denies dizziness, Denies frequent falls, Denies numbness, Denies tingling and Denies weakness Endo Denies fatigue and Denies palpitations Physical Exam Vital Signs: Last Vital Signs Pulse 61 06/09/25 08:33 BP 130/82 06/09/25 08:33 BMI result Body Mass Index 34.0 Const General: cooperative, comfortable and no acute distress Orientation/consciousness: patient oriented x3 HEENT Head: Yes normal to inspection Resp Effort & Inspection: normal respiratory effort Auscultation: clear to auscultation bilaterally, no rales, no rhonchi and wheezes scattered wheezes Cardio Jugular venous distension: no JVD Rate: regular rate Rhythm: abnormal rhythm (irregularly irregular) Heart sounds: S1 normal heart sound present, S2 normal heart sound present, no gallops, no murmurs and no rubs Peripheral pulses: Peripheral pulses 2+ throughout GI Inspection: Yes normal to inspection Neuro General: patient oriented x3 Extrem Other: right lower leg with redness, swelling, no skin breaks seen. Overall appearance is improved compared to when I assessed it 3 weeks ago. General: No clubbing, No cyanosis, No edema and Yes other (Bilateral varicose veins) Right lower extremity: lower leg (A wound on the anterior aspect with eschar with some oozing) Office Procedures EKG Details: EKG shows normal sinus rhythm with poor R-wave progression with normal QT interval 63489-[id number], Complete Assessment & Plan Assessment & Plan (1) Paroxysmal atrial fibrillation: Comment: status post cardioversion on 06/24/2020 for persistent atrial fibrillation. Maintain on amiodarone Code(s): I48.0 - Paroxysmal atrial fibrillation Category: Medical Plan: Paroxysmal atrial fibrillation has had no obvious clinical recurrence. She is doing well from cardiac perspective. Continue pursue rhythm control approach which has helped her significantly overall with her symptoms of shortness of breath. Importance of aggressive lifestyle modification weight loss to prevent recurrence of atrial fibrillation was discussed. If she has recurrence may need antiarrhythmic drug therapy. Continue current metoprolol therapy. Avoidance of stimulants was discussed. Continue full oral anticoagulation, currently on apixaban 5 mg b.i.d.. (2) HTN (hypertension): Code(s): I10 - Essential (primary) hypertension Category: Medical Plan: Hypertension with sedentary lifestyle with obesity. Strongly encouraged to participate in his lifestyle modification increase her activity level and participate in dietary modification to lose weight. This should help with her elevated sugars as well as hemoglobin A1c. Will also help with lipid management. After intense lifestyle modifications for 6 months I would repeat her lipid panel to target goal LDL definitely less than 130 mg/dL if possible. Would hold off on statin therapy at this point time. Her blood pressure is currently well optimized and encouraged to continue monitor at home. Target goal blood pressure less than 130/84. Low-salt diet was discussed. Stress mitigation strategies were discussed. Will follow up in the clinic in 1 year's time, sooner p.r.n.. Thank you for allowing me to partake in her care Coding Level of Care Code Est Pt Level 4 (49353) Complex EM visit Add On G2211 Diagnoses Paroxysmal atrial fibrillation I48.0 HTN (hypertension) I10 CPT Codes EKG - CPT: 73308-[id number], Complete ([id number])
--- OUTSIDE RECORDS SUMMARY | 2025-06-09 08:36 | XMS_ITS ---
Author Organization [facility] Care Team Providers Care Truck Repair Supervisor Name Role Phone [facility] Unavailable Unavailable Jossie Jimenes Unavailable Unavailable Deisy Andrade Unavailable Unavailable Allergies and adverse reactions No Known Allergies Care Team Name Role Address Phone Organization Dates [facility] PCP [address], [address], [facility] (Office): : [facility] 04/13/2022 - 04/22/2022 Jossie Jimenes [address], [address], [facility] (Office): : [facility] 04/13/2022 - 04/22/2022 Deisy Andrade [address], [address], [place] (Office): [facility] 04/13/2022 - 04/22/2022 Immunizations Immunization Status Vaccine Details Vaccine Code CodeSystem Date Notes Influenza completed Influenza, split virus, trivalent, injectable, contains preservative 141 CVX created date: 04/17/2022 administere d date: 08/18/2021 TB 2 Step Mantoux Skin Test completed tuberculin skin test; unspecified formulation lotNumber: [id number] expiry: 05/12/2023 Mfg: PAR pharmaceical Given 0.1 ml Left Forearm intradermally Step 1 of Multi-step with next step required 98 CVX created date: 04/14/2022 consent date: 04/14/2022 administere d date: 04/14/2022 SARS-COV-2 (COVID-19) completed SARS-COV-2 (COVID-19) vaccine, mRNA, spike protein, LNP, preservative free, 30 mcg/0.3mL dose Mfg: Pfiizer [employer] Step 2 of Multi-step with next step required 208 CVX created date: 04/17/2022 administere d date: 02/17/2021 SARS-COV-2 (COVID-19) completed SARS-COV-2 (COVID-19) vaccine, mRNA, spike protein, LNP, preservative free, 30 mcg/0.3mL dose Mfg: Pfizer # 1 Step 1 of Multi-step with next step required 208 CVX created date: 04/17/2022 administere d date: 01/27/2021 Pfizer Covid-19 Booster (SARS-COV-2) vaccine completed SARS-COV-2 (COVID-19) vaccine, mRNA, spike protein, LNP, preservative free, 30 mcg/0.3mL dose Mfg: pfiezer booster 208 CVX created date: 04/17/2022 administere d date: 09/13/2021 (PCV20)Pneumococc al Conjugate vaccine 20-valent completed Pneumococcal conjugate vaccine 20-valent (PCV20), polysaccharide [id number] conjugate, adjuvant, preservative free lotNumber: [id number] expiry: 05/12/2023 Mfg: PAR pharmaceical Given 0.1 ml Left Forearm intradermally 216 CVX created date: 04/14/2022 consent date: 04/14/2022 administere d date: 04/14/2022 Mental Status Section Date Assessment Total Score Description 04/22/2022 BIMS 15 cognitively int act CAM 0 No delirium ind icated PHQ-9 00 04/14/2022 BIMS 15 cognitively int act CAM 0 No delirium ind icated PHQ-9 01 minimal depress ion Problems Problem # Description Date of onset Resolved Date Code CodeSystem Concern Status 1 AFTERCARE FOLLOWING JOINT REPLACEMENT SURGERY 04/13/[address] active 2 BODY MASS INDEX [BMI] 36.0-36.9, ADULT 04/13/[address] active 3 ENCOUNTER FOR OBSERVATION FOR SUSPECTED EXPOSURE TO OTHER BIOLOGICAL AGENTS RULED OUT 04/13/[address] active 4 ESSENTIAL (PRIMARY) HYPERTENSION 04/13/[address] active 5 GENERALIZED ANXIETY DISORDER 04/13/[address] active 6 LUPUS ANTICOAGULANT SYNDROME 04/13/[address] active 7 OBESITY, UNSPECIFIED 04/13/[address] active 8 PAROXYSMAL ATRIAL FIBRILLATION 04/13/[address] active 9 PERSONAL HISTORY OF OTHER VENOUS THROMBOSIS AND EMBOLISM 04/13/[address] active 10 PREDIABETES 04/13/[address] activ e 11 SYSTEMIC LUPUS ERYTHEMATOSUS, UNSPECIFIED 04/13/[address] active 12 UNILATERAL PRIMARY OSTEOARTHRITIS, LEFT KNEE 04/13/[address] active Reason for Referral No Reasons for Referral Entered Social History Social History Observation Description Start Date End Date Code Code System Current Smoking Status Tobacco smoking consumption unknown 565312821 SNOMED CT Sex Assigned At Female 1950 61965-9 [facility] Gender Identity Vital Signs Code Code System Vitals Name Values and Units Timing Information 91999-3 LOINC Pain Level Value=4.0 04/22/2022 9279-1 LOINC Respiratory Rate Value=18.0 Units=/m in 04/22/2022 8462-4 LOINC Blood Pressure-Diastolic Value=75 Un its=mmHg 04/22/2022 8480-6 LOINC Blood Pressure-Systolic Wfvbc=350 Un its=mmHg 04/22/2022 8310-5 LOINC Body Temperature Value=98.1 Units= F 04/22/2022 8867-4 LOINC Heart rate Value=88.0 Units=/min 01823-8 LOINC O2 % BldC Oximetry Value=97.0 Units= % 04/22/2022 05877-0 LOINC Weight Cprxf=819.4 Units=Lbs 8302-2 LOINC Height Value=62.0 Units=Inches 04/13/2022
--- OUTSIDE RECORDS SUMMARY | 2025-06-09 08:36 | XMS_ITS | Clinical Summary ---
Author Organization [facility] Address [address] [place] [address] Care Team Providers Care Welding Equipment Repairer Name Role Phone Poly Chandler MD Primary Care Provider [phone] Medications Medication Sig Dispensed Refills Start Date End Date Status norethindrone (MICRONOR) 0.35 MG tablet Take 1 tablet by mouth daily. 0 Active estradiol (CLIMARA) 0.05 MG/24HR Place 1 patch onto the skin once a week. 0 Active risperiDONE (RisperDAL M-TABS) 0.5 MG disintegrating tablet Take 0.5 mg by mouth every 12 (twelve) hours. 0 Active potassium chloride ER (K-DUR,KLOR-CON) tablet 20 mEq Take 20 mEq by mouth 2 (two) times a day. 0 Active atenolol-chlorthalidone (TENORETIC) 50-25 MG per tablet Take 1 tablet by mouth daily. 0 Active cholecalciferol (VITAMIN D3) 1000 units tablet Take 1,000 Units by mouth daily. 0 Active aspirin EC 81 MG tablet Take 81 mg by mouth daily. 0 Active Misc Natural Products (GLUCOSAMINE CHOND MSM FORMULA) TABS Take by mouth. 0 Active Active Problems Problem Noted Date Diagnosed Date Malignant neoplasm of upper- outer quadrant of left breast in female, estrogen receptor positive 01/29/2019 Social History Tobacco Use Types Packs/Day Years Used Date Smoking Tobacco: Never Assessed Sex and Gender Information Value Date Recorded Sex Assigned at Not on file Gender Identity Not on file Sexual Orientation Not on file Last Filed Vital Signs Vital Sign Reading Time Taken Comments Blood Pressure 139/72 01/29/2019 10:39 AM EST Pulse 80 01/29/2019 10:39 AM EST Temperature 36.5 C (97.7 F) 01/29/2019 10:39 AM EST Respiratory Rate - - Oxygen Saturation - - Inhaled Oxygen Concentration - - Weight 83.8 kg (184 lb 12.8 oz) 019 10:39 AM EST Height 154.9 cm (5' 1 ) 01/29/2019 10:3 9 AM EST Body Mass Index 34.92 01/29/2019 10:39 AM EST Plan of Treatment Health Maintenance Due Date Last Done Comments Hepatitis C Screening 1950 Depression Screening 1960 Preventative Health Evaluation 1966 Fall Risk Assessment 2013 Osteoporosis Screening (DEXA Scan) 2013 DTap / Tdap / Td (3 - Tdap) 02/23/2016 02/22/2006, 0 11/26/1997 RSV Adult > 60+ Yrs or (1 - 1-dose 75+ series) 2023 COVID-19 Vaccine ( season) 2024 09/13/2021, 02/17/2021, 01/27/2021 Influenza Vaccine (#1) 2025 2, 08/18/2021, 09/15/2019, Additional history exists Pneumococcal Vaccine Completed 02/11/2015, 02/10/20 14 Shingrix-Zoster Vaccine Completed 11/08/2020, 09/04 Hepatitis B Vaccines Aged Out No long er eligible based on patient's age to complete this topic RSV Ped < 20 months Aged Out No longe r eligible based on patient's age to complete this topic Care Teams Welding Equipment Repairer Relationship Specialty Start Date End Date Poly Chandler MD [address] [place] [id number] PCP - General Internal Medicine 01/22/19
--- OUTSIDE RECORDS SUMMARY | 2025-06-09 08:36 | XMS_ITS | Clinical Summary ---
Author Organization [facility] Address [address] [place] [address] Phone Care Team Providers Care Cake Decorator Name Role Phone Juana Crum MD Primary Care Provider [phone] Allergies No known active allergies Medications risperiDONE (RisperDAL M-TABS) 0.5 mg disintegrating tablet Take 0.5 mg by mouth every 12 (twelve) hours. Active risperiDONE (RisperDAL) 0.5 mg tablet Take 1 Tablet by mouth. 2 Active vitamin D3-vitamin K2, MK4, 1,000-100 unit-mcg tablet Take 1 Capsule by mouth. 1 Active amiodarone (PACERONE) 200 mg tablet 1 Active amLODIPine (NORVASC) 5 mg tablet Take 5 mg by mouth 2 Times Daily. 2 Active apixaban (Eliquis) 5 mg tablet Take 1 Tablet by mouth 2 Times Daily. 2 Active atenoloL-chlorthali done (TENORETIC) 50-25 mg per tablet Take 1 tablet by mouth daily. Active celecoxib (CeleBREX) 200 mg capsule 1 Active fluoride, sodium, (DentaGeL) 1.1 % gel 1 Active metoprolol tartrate (LOPRESSOR) 50 mg tablet Take 50 mg by mouth. 2 Active mupirocin (BACTROBAN) 2 % ointment 1 Active omega-3 acid ethyl esters (LOVAZA) 1 gram capsule Take 1,000 mg by mouth. 2 Active oxyCODONE (ROXICODONE) 5 mg immediate release tablet TAKE 1 TABLET BY MOUTH EVERY 8 HOURS NEEDED FOR MODERATE PAIN ON SCALE 4-6 FOR 7 DAYS 2 Active pantoprazole (PROTONIX) 40 mg EC tablet Take 40 mg by mouth. 2 Active potassium chloride (KLOR-CON) 20 mEq packet Take 20 mEq by mouth 3 times daily. Active potassium chloride (KLOR-CON M20) 20 mEq CR tablet Take 20 mEq by mouth 2 (two) times a day. Active spironolactone (ALDACTONE) 50 mg tablet 1 Active aspirin 81 mg EC tablet Take 81 mg by mouth daily. Active CHOLECALCIFEROL, VITAMIN D3, ORAL Take 1 Tab by mouth daily. Active norethindrone (ANUPAMA,JOHN,CAYDEN ER,MICRONOR) 0.35 mg tablet Take 1 Tablet by mouth daily. Active Active Problems Problem Noted Date Diagnosed Date Endometrial polyp 12/10/2017 Symptomatic menopausal or female climacteric sta tani 12/10/2017 Vaginal atrophy 12/10/2017 Immunizations Name Administration Dates Next Due [employer] SARS-CoV-2 COVID-19, mRNA, LNP-S, preservative free 09/13/2021,02/17/2021,01/27/2021 Surgical History Surgery Date Site/Laterality Comments OTHER SURGICAL HISTORY 2009 PROCEDURE: ENDOMETRAIL POLYP SPC[facility] PATHOLOGY EXAM; COMMENT: benign BACK SURGERY 1994 PROCEDURE: HISTORICAL BACK SURGERY OTHER SURGICAL HISTORY PROCEDURE: PARTIAL MASTECTOMY TOTAL KNEE ARTHROPLASTY PROCEDURE: HISTORICAL TOTAL KNEE REPLACE CATARACT EXTRACTION 11/26/2023 - 11/25/2024 Left Complication, required additional surgery. Medical History Medical History Date Comments Menopause syndrome 2011 DX:Menopause syndrome Hemorrhoids 2011 DX:Hemorrhoids Hypertension 2012 DX:Hypertension Depression 2011 DX:Depression Vaginal atrophy 2011 DX:Vaginal atrop hy; COMMENT: used combined ERT with progestin Family History Medical History Relation Name Comments No Known Problems Father No Known Problems Mother no breast cancer in my family Relation Name Status Comments Father Mother Social History Tobacco Use Types Packs/Day Years Used Date Smoking Tobacco: Never Smokeless Tobacco: Never Alcohol Use Standard Drinks/Week Comments No 0 (1 standard drink = 0.6 oz pur e alcohol) Comments Unknown Sex and Gender Information Value Date Recorded Sex Assigned at Not on file Legal Sex Female 6:11 PM EST Gender Identity Not on file Sexual Orientation Not on file Obstetrics History Last Filed Vital Signs Vital Sign Reading Time Taken Comments Blood Pressure 159/80 01/20/2025 8:42 AM EST Pulse 76 01/20/2025 8:42 AM EST Temperature 36.9 C (98.4 F) 01/20/2025 8:42 AM EST Respiratory Rate - - Oxygen Saturation - - Inhaled Oxygen Concentration - - Weight 90.7 kg (200 lb) 01/20/2025 8:42 AM EST Height 160 cm (5' 3 ) 06/29/2022 8:43 AM EDT Body Mass Index 35.43 06/29/2022 8:43 AM EDT Plan of Treatment Upcoming Encounters Date Type Department Care Team (Late st Contact Info) Description 07/28/2025 9:00 AM EDT [facility]ointment [facility] [address] [phone] 08/04/2025 8:00 AM EDT Office Visit Breast [facility] [address] [place] [phone] Brittney Barrera MD [address] [place] [id number] Health Maintenance Due Date Last Done Comments Cholesterol Screening (Lipid Panel) 11/04/2022 Depression Screening 11/04/2022 Falls Risk Assessment 11/04/2022 Hepatitis C Screening 11/04/2022 Social Influencers of Health Screening 11/04/2022 RSV Immunization Adult Patients (1 - 1-dose 75+ series) 2023 Medicare Annual Wellness Visit 05/11/2024 05/11/2023 COVID-19 Vaccine ( season) 2024 09/13/2021, 02/17/2021, 01/27/2021 Hypertension/CHF/CAD Annual BMP Blood Test 01/20/2025 11/12/2018 Influenza Vaccine (#1) 2025 , 09/03/2023, 08/29/2022, Additional history exists Osteoporosis Screening (Bone Density Screening) 02/12/2029 02/12/2019 DTaP,Tdap,and Td Vaccines (4 - Td or Tdap) 11/24/2032 11/24/2022, 02/22/2006, 11/26/1997 Zoster Vaccines Completed 11/08/2020, 09/04/2020 Pneumococcal Vaccine: 50+ Years Completed 04/14/2022, 02/11/2015, 02/09/2014 Breast Cancer Screening Discontinued 01/17/2023, 12/06 HIB Vaccines Aged Out No longer eligi ble based on patient's age to complete this topic HPV Vaccines Aged Out No longer eligi ble based on patient's age to complete this topic Hepatitis A Vaccines Aged Out No long er eligible based on patient's age to complete this topic Hepatitis B Vaccines Aged Out No long er eligible based on patient's age to complete this topic IPV Vaccines Aged Out No longer eligi ble based on patient's age to complete this topic MMR Vaccines Aged Out No longer eligi ble based on patient's age to complete this topic Meningococcal ACWY Vaccine Aged Out N o longer eligible based on patient's age to complete this topic Meningococcal B Vaccine Aged Out No l onger eligible based on patient's age to complete this topic RSV Immunization Patients Under 20 months Aged Out No longer eligible based on patient's age to complete this topic Varicella Vaccines Aged Out No longer eligible based on patient's age to complete this topic Procedures Procedure Name Priority Date/Time Associated Diagnosis Comments [facility] SCREENING DIGITAL Routine 01/17/2023 11:39 AM EST Encounter for screening mammogram for malignant neoplasm of breast [facility] DEXA AXIAL SKELETON Routine 02/12/2019 2:15 PM EDT Asymptomatic menopausal state from Last 3 Months or Most Recently Relevant to Health Maintenance Results * [facility] SCREENING DIGITAL (01/17/2023 11:39 AM EST) Anatomical Region Laterality Modality Mammography 01/16/2023 2:21 PM EST Narrative 01/17/2023 11:39 AM EST [facility] Diagnostic Imaging Department [address] [place] [address] Patient: ANGELES PEDERSEN /Age/Sex: 1950 - 72 - F Unit#: [id number] Location/Status: SPDIMAM/REG CLI Mnemonic/Ordering Site: [facility] Ordering Physician: JUANA CRUM MD [facility] Screening Digital - 01/16/23 - 1451 EXAM: [facility] Screening Digital EXAM DATE AND TIME: 01/16/2023 2:53 PM HISTORY: Screening. Personal history of left breast carcinoma treated with lumpectomy and radiation therapy in 2019. COMPARISON: 12/13/21, 12/10/20, 12/09/19, 12/06/18 TECHNIQUE: CC and MLO views of both breasts were obtained using full field digital mammography. Bilateral digital breast tomosynthesis was performed in the MLO projection. Computer aided detection with [employer] 7.2-H and [employer] 3D 3.1 was employed. TISSUE DENSITY: b. There are scattered areas of fibroglandular density. FINDINGS: A small group of microcalcifications is seen in the upper outer right breast, middle depth, with a faint associated asymmetry. Spot compression magnification views are recommended for further assessment. Focal asymmetry and architectural distortion, with adjacent surgical clips and thickening and retraction of the overlying skin remains stable in the axillary tail the left breast, consistent with the lumpectomy scar. Diffuse skin thickening of the left breast is also unchanged, consistent with treatment sequelae. No suspicious masses are seen. The vascularity is unremarkable. IMPRESSION: 1. Grouped microcalcifications in the right breast, for which additional views are recommended. The patient will be called back. 2. Stable mammographic appearance of the left breast, including lumpectomy changes. No evidence of malignancy is seen. BI-RADS: Category 0: Incomplete - Need Additional Imaging Evaluation RECOMMENDATION(S): 1: Special mammographic view(s) needed RIGHT [id number], [id number], [id number] Dictating Physician: MARICRUZ BENSON MD Electronically Signed by: MARICRUZ BENSON MD Dic Date/Time: 01/17/23 1136 Sign date/Time: 01/17/23 1139 Procedure Note Maricruz Benson MD - 12/28/2023 [facility] Diagnostic Imaging Department [address] [place] [address] Patient: ANGELES PEDERSEN /Age/Sex: 1950 - 72 - F Unit#: [id number] Location/Status: [facility] CLI Mnemonic/Ordering Site: [facility] Ordering Physician: JUANA CRUM MD [facility] Screening Digital - 01/16/23 - 1452 EXAM: [facility] Screening Digital EXAM DATE AND TIME: 01/16/2023 2:53 PM HISTORY: Screening. Personal history of left breast carcinoma treatedwith lumpectomy and radiation therapy in 2019. COMPARISON: 12/13/21, 12/10/20, 12/09/19, 12/06/18 TECHNIQUE: CC and MLO views of both breasts were obtained using fullfield digital mammography. Bilateral digital breast tomosynthesis was performedin the MLO projection. Computer aided detection with [employer] 7.2-H [employer] 3D 3.1 was employed. TISSUE DENSITY: b. There are scattered areas of fibroglandular density. FINDINGS: A small group of microcalcifications is seen in the upper outer rightbreast, middle depth, with a faint associated asymmetry. Spot compressionmagnification views are recommended for further assessment. Focal asymmetry and architectural distortion, with adjacent surgical clipsand thickening and retraction of the overlying skin remains stable in theaxillary tail the left breast, consistent with the lumpectomy scar. Diffuse skin thickening of the left breast is also unchanged, consistent withtreatment sequelae. No suspicious masses are seen. The vascularity is unremarkable. IMPRESSION: 1. Grouped microcalcifications in the right breast, for which additionalviews are recommended. The patient will be called back. 2. Stable mammographic appearance of the left breast, includinglumpectomy changes. No evidence of malignancy is seen. BI-RADS: Category 0: Incomplete - Need Additional Imaging Evaluation RECOMMENDATION(S): 1: Special mammographic view(s) needed RIGHT [id number], [id number], 7025F Dictating Physician: MARICRUZ BENSON MD Electronically Signed by: MARICRUZ BENSON MD Dic Date/Time: 01/17/23 1136 Sign date/Time: 01/17/23 1139 Juana Crum MD IMG BI PROCEDURES Final Result * [facility] DEXA AXIAL SKELETON (02/12/2019 2:15 PM EDT) Anatomical Region Laterality Modality Mammography 02/12/2019 12:5 1 PM EDT Narrative 02/12/2019 2:15 PM EDT [facility] Diagnostic Imaging Department [address] [place], [place] [id number] Patient: ANGELES PEDERSEN /Age/Sex: 1950 - 68 - F Unit#: [id number] Location/Status: SPDIMAM/REG CLI [facility] Ordering Physician: MEI TSANG MD [facility] Dexa Axial Skeleton - 02/12/19 - 1885 HISTORY: The patient is a 68-year-old postmenopausal female with clinical concern for metabolic bone disease. FINDINGS: Dual energy x-ray absorptiometry of the lumbar spine and femurs is performed. The mean bone mineral density at L3-4 is 1.351 gm/cm2 which is 113% of that of young normals and 126% of that of age matched controls. This yields a T-score of 1.3 and a Z-score of 2.3 and there is therefore no evidence of osteoporosis or osteopenia here. The mean bone mineral density of the femurs bilaterally is 1.069 gm/cm2 which is 106% of that of young normals and 121% of that of age matched controls. This yields a T-score of 0.5 and a Z-score of 1.5 and there is therefore no evidence of osteoporosis or osteopenia here. IMPRESSION: 1. There is no evidence of osteoporosis or osteopenia. 2. FRAX analysis yields a 10-year probability of major osteoporotic fracture of 7.7% and a 10-year probability of hip fracture of 0.6%. Code 13739 Dictating Physician: HERVE MURILLO MD Electronically Signed by: HERVE MURILLO MD Dic Date/Time: 02/12/19 1413 Sign date/Time: 02/12/19 141 Procedure Note Herve Murillo MD - 11/15/2022 [facility] Diagnostic Imaging Department [address] [place] [address] Patient: ANGELES PEDERSEN/Age/Sex: 1950 - 68 - F Unit#: [id number] Location/Status: SPDIMAM/REG CLI Mnemonic[facility] Ordering Physician: MEI TSANG MD [facility] Dexa Axial Skeleton - 02/12/19 - 1352 HISTORY: The patient is a 68-year-old postmenopausal female withclinical concern for metabolic bone disease. FINDINGS: Dual energy x-ray absorptiometry of the lumbar spine and femursis performed. The mean bone mineral density at L3-4 is 1.351 gm/cm2 which is113% of that of young normals and 126% of that of age matched controls. Thisyields a T-score of 1.3 and a Z-score of 2.3 and there is therefore no evidenceof osteoporosis or osteopenia here. The mean bone mineral density of the femurs bilaterally is 1.069 gm/ao0cxvqd is 106% of that of young normals and 121% of that of age matched controls.This yields a T-score of 0.5 and a Z-score of 1.5 and there is therefore noevidence of osteoporosis or osteopenia here. IMPRESSION: 1. There is no evidence of osteoporosis or osteopenia. 2. FRAX analysis yields a 10-year probability of major osteoporoticfracture of 7.7% and a 10-year probability of hip fracture of 0.6%. Code 47477 Dictating Physician: HERVE MURILLO MD Electronically Signed by: HERVE MURILLO MD Dic Date/Time: 02/12/19 1413 Sign date/Time: 02/12/19 141 Mei Marino MD IMG BI PROCEDURES F inal Result from Last 3 Months or Most Recently Relevant to Health Maintenance Insurance MEDICARE MEDICAID - [place] Care Teams Cake Decorator Relationship Specialty Start Date End Date Juana Crum MD [address] [place] [address] PCP - General Internal Medicine 04/06/21
--- OUTSIDE RECORDS SUMMARY | 2025-06-09 08:36 | XMS_ITS | Clinical Summary ---
Author Organization [facility], Address [address] [place] [address] [place] [address] Phone Care Team Providers Care Photocomposing Keyboard Operator Name Role Phone Chrissy Moran MD Primary Care Provider [phone] Medications amLODIPine (NORVASC) 2.5 MG tablet Take 2.5 mg by mouth 1 (one) time each day 06/15/2021 Active celecoxib (CeleBREX) 200 MG capsule 09/07/2021 Active digoxin (LANOXIN) 125 MCG tablet 07/01/2021 Active dilTIAZem CD (CARDIZEM CD) 120 MG 24 hr capsule 07/01/2021 Active doxycycline (VIBRAMYCIN) 100 MG capsule 07/21/2021 Active enoxaparin (LOVENOX) 100 MG/ML solution 07/25/2021 Acti ve Misc Natural Products (Glucosamine Chond MSM Formula) tablet Take by mouth Active risperiDONE (RisperDAL) 0.5 MG tablet 08/06/2021 Active spironolactone (ALDACTONE) 50 MG tablet 07/24/2021 Active potassium chloride (KLOR-CON M20) 20 MEQ CR tablet Take 20 mEq by mouth 2 (two) times a day Active D3 50 MCG (1999 UT) tablet 07/23/2021 Active Active Problems Problem Noted Date Diagnosed Date Impaired fasting glucose 09/09/2021 Persistent atrial fibrillation 01/15/2019 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/21/2018 Family History Medical History Relation Comments Lymphoma Father Coronary artery disease Mother Hypertension Mother Relation Status Comments Father Mother Social History Tobacco Use Types Packs/Day Years Used Date Smoking Tobacco: Never Alcohol Use Standard Drinks/Week Comments Never 0 (1 standard drink = 0.6 oz pur e alcohol) Comments Unknown Sex and Gender Information Value Date Recorded Sex Assigned at Not on file Legal Sex Female 8:47 AM EDT Gender Identity Not on file Sexual Orientation Not on file Last Filed Vital Signs Vital Sign Reading Time Taken Comments Blood Pressure 134/72 09/09/2021 3:55 PM EDT Pulse - - Temperature - - Respiratory Rate - - Oxygen Saturation - - Inhaled Oxygen Concentration - - Weight - - Height - - Body Mass Index - - Plan of Treatment Health Maintenance Due Date Last Done Comments Pneumococcal Vaccine: 50+ Ye ars (1 of 1 - PCV) 1998 Influenza Vaccine (#1) 2025 Hepatitis B Vaccine Aged Out No longe r eligible based on patient's age to complete this topic Insurance Medicare Medicaid [place] Care Teams Photocomposing Keyboard Operator Relationship Specialty Start Date End Date Chrissy Moran MD [address] [place] [address], [address] [place] [address] PCP - General Internal Medicine 06/17/21
== END 2025-06-09 08:54 | disposition home or self-care (01) ==
LOC: HO.HCS 08:32
PROVIDERS: PCP Internal Medicine; Visit Provider Internal Medicine Cardiovascular Disease
DX: I48.0 Paroxysmal atrial fibrillation (principal); I10 Essential (primary) hypertension
CPT/HCPCS: 93010; 99214; G2211

== ENCOUNTER → 2025-06-09 08:31 | Outpatient (BNVA) | payer MEDICARE, MEDICAID, SELFPAY | PROVIDERS: PCP Internal Medicine; Visit Provider Internal Medicine Cardiovascular Disease | DX: I48.0 Paroxysmal atrial fibrillation (principal); I10 Essential (primary) hypertension; R94.31 Abnormal electrocardiogram [ECG] [EKG]; Z79.01 Long term (current) use of anticoagulants; Z79.899 Other long term (current) drug therapy | CPT/HCPCS: 93005; 99212 ==